=== PATIENT | male | born 1960 | race Caucasian/White ===

== ENCOUNTER → 2020-08-15 13:11 | Outpatient (REF) | payer OTHER, SELFPAY | LOC: ANHLAB 13:11 | PROVIDERS: PCP Family Medicine; Visit Provider Nurse Practitioner | DX: L72.0 Epidermal cyst (principal) | CPT/HCPCS: 88304 ==

== ENCOUNTER 2023-07-05 22:38 | Inpatient (IN) | payer MEDICARE, SELFPAY ==
--- NOTE | ~2023-07-05 | XR_ITS ---
EXAMINATION: XR chest PICC line DATE: 07/10/2023 12:14 INDICATION: Central line placement. TECHNIQUE: A single frontal view of the chest was obtained on 2 radiographs. COMPARISON: Chest single view 07/05/2023, chest CT 07/10/2023 FINDINGS: There is a nodule superior segment left lower lobe. There are airspace opacities at left gaetano ng base. No pleural effusion or pneumothorax. The heart size is normal. There is a left chest pacer w ith leads in right atrium, right ventricle, and coronary sinus. A right upper extremity peripherally inserted central venous catheter (PICC) is seen with tip in the superior vena cava. IMPRESSION: 1. PICC tip in the superior vena cava. 2. Nodule in superior segment left lower lobe, consistent with primary bronchogenic carcinoma. 3. Airspace opacities at left lung base, likely atelectasis. Reviewed, dictated and finalized at location A. IMPRESSION: 1. PICC tip in the superior vena cava. 2. Nodule in superior segment left lower lobe, consistent with primary bronchog enic carcinoma. 3. Airspace opacities at left lung base, likely atelectasis.
--- NOTE | ~2023-07-05 | CT_ITS ---
EXAMINATION: CT abdomen pelvis w con DATE: 07/06/2023 01:11 INDICATION: Sepsis. Nausea and vomiting. TECHNIQUE: Computed tomography (CT) of the abdomen and pelvis was performed with 100 mL Omnipaque 350 intravenous contrast. Automated exposure control and iterative reconstruction technique were employe d. The dose-length product was 539.96 mGy-cm. COMPARISON: CT abdomen and pelvis 06/24/2008 FINDINGS: The visualized portions of the lung bases demonstrate smooth septal thickening, consistent with mild pulmonary edema. There is mild dependent atelectasis bilaterally, left worse than right. No pleural effusion. Cardiomegaly is noted. There is a small pericardial effusion. There is a left ches t wall pacer with leads in the right atrium and right ventricle. There is a pacer wire in coronary si nus. There are coronary artery calcifications. There is an 8 mm cyst in the liver. There are gallston es in the gallbladder, which is normal in size. The spleen, pancreas, and adrenal glands are normal. There are cysts in the kidneys measuring up to 1.9 cm on the right. There is calcified atherosclerosi s of the aorta and many of the other arteries. There is a Benedict catheter in expected position. There is a right inguinal hernia containing fat. The appendix is normal. There are no dilated loops of sophie l. There is wall thickening of the colon, worst in the sigmoid colon, consistent with colitis. There is mild periportal lymphadenopathy. There is no free intraperitoneal fluid. There is moderate lumbar spondylosis. IMPRESSION: 1. Mild pulmonary edema. 2. Small pericardial effusion. 3. Colitis. 4. Mild periportal lymphadenopathy, likely reactive. Reviewed, dictated and finalized at location E.
--- NOTE | ~2023-07-05 | XR_ITS ---
EXAMINATION: XR chest 1V portable DATE: 07/05/2023 23:32 INDICATION: Altered mental status and vomiting TECHNIQUE: frontal view of the chest was obtained. COMPARISON: Chest radiograph dated 11/05/2011 FINDINGS: The lungs remain clear with no focal airspace opacities, pulmonary edema, pleural effusion or pneumot horax. The cardiomediastinal silhouette is normal. Three lead pacemaker/AICD seen with leads projecti ng over the expected locations of the right atrial appendage, apex of the right ventricle and overlyi ng the left ventricle likely having traversed the coronary sinus. IMPRESSION: 1. No acute cardiopulmonary disease. Reviewed, dictated and finalized at location A.
--- NOTE | ~2023-07-05 | CT_ITS ---
EXAMINATION: CT brain wo con DATE: 07/10/2023 08:09 INDICATION: Esophageal cancer. TECHNIQUE: Computed tomography (CT) of the head was performed without intravenous contrast. The mA wa s adjusted according to patient size. Iterative reconstruction technique was employed. The dose-lengt h product was 605.33 mGy-cm. COMPARISON: Head CT 07/05/2023 FINDINGS: There are old infarcts in the right frontal lobe deep white matter. There are old infarcts in the right parietal and occipital lobes. There is no intracranial hemorrhage, acute infarction, or abnormal intracranial mass lesion. The ventricles are normal in size. There is mild mucosal thickenin g in the paranasal sinuses. The orbits are normal. The mastoid air cells are normal. IMPRESSION: 1. Old infarcts involving the right frontal, parietal, and occipital lobes. Reviewed, dictated and finalized at location A.
--- NOTE | ~2023-07-05 | CT_ITS ---
EXAMINATION: CT chest abdomen pelvis w con DATE: 07/10/2023 08:09 INDICATION: Esophageal cancer. TECHNIQUE: Computed tomography (CT) of the chest, abdomen, and pelvis was performed with 100 mL Omnip aque 350 intravenous contrast. Automated exposure control and iterative reconstruction technique were employed. The dose-length product was 763.08 mGy-cm. COMPARISON: CT abdomen and pelvis 07/06/2023 FINDINGS: CHEST CT: There is mild emphysema. There are airspace opacities in left lower lobe with volume loss, likely ate lectasis. There is mucous plugging in left lower lobe. There is a 2.4 cm cavitary nodule in superior segment left lower lobe. There is left hilar and mediastinal lymphadenopathy. There is left ventricul ar enlargement of the heart. There is a small pericardial effusion. There are coronary artery calcifi cations. There is a left chest pacer with leads in right atrium, right ventricle, and coronary sinus. There is mild thoracic spondylosis. There is an old fracture of T1 spinous process. ABDOMEN/PELVIS CT: There is a 7 mm cyst in the liver. There are gallstones in the gallbladder, which is normal in size. There is an 8 mm hypodense mass in the spleen. The pancreas and adrenal glands are normal. There are cysts in the kidneys measuring up to 1. Centimeters on the right. There is calcified atherosclerosis of the aorta and many of the other arteries. There is a right inguinal hernia containing fat. There a re no pathologically enlarged lymph nodes. There is mild periportal lymphadenopathy. There is a benig n bone island in left ilium. There is moderate lumbar spondylosis. IMPRESSION: 1. 2.4 cm cavitary nodule in superior segment left lower lobe, consistent with primary bronchogenic c arcinoma. 2. Left hilar and mediastinal lymphadenopathy, consistent metastatic disease. 3. Small pericardial effusion. 4. 8 mm splenic mass, which may be a benign finding or less likely metastatic disease. 5. Mild periportal lymphadenopathy, which may be reactive lymphadenopathy or less likely metastatic d isease. Reviewed, dictated and finalized at location A. IMPRESSION: 1. 2.4 cm cavitary nodule in superior segment left lower lobe, consistent with primary bronchogenic carcinoma. 2. Left hilar and mediastinal lymphadenopathy, consistent metastatic disease. 3. Small pericardial effusion. 4. 8 mm splenic mass, which may be a benign finding or less likely metastatic d isease. 5. Mild periportal lymphadenopathy, which may be reactive lymphadenopathy or le ss likely metastatic disease.
--- NOTE | ~2023-07-05 | XR_ITS ---
MODIFIED ESOPHAGRAM HISTORY: Dysphagia. TECHNIQUE: Modified barium esophagram was performed on 07/07/2023. I administered fluoroscopy and perfo rmed the exam with speech pathologist. Patient was seated for lateral fluoroscopic imaging for inges tion of thin liquids, pudding, solids and quantified amounts, followed by thin liquids in uncontrolle d amounts. This was recorded on tape. A single fluoroscopic spot image was also recorded. The DAP for this procedure was 0.818 Gycm2. The amount of fluoroscopy time used during this procedure was 1.2 mi nutes. FINDINGS: Oral stage: Adequate function. Pharyngeal stage: Reduced tongue base retraction and pharyngeal squeeze. No laryngeal penetration or aspiration. Cervical/esophageal stage: Adequate function. IMPRESSION: Mild pharyngeal dysphagia without laryngeal penetration or aspiration. Please correlate with speech pathologist findings and specific feeding recommendations. Reviewed, dictated and finalized at location A. IMPRESSION: Mild pharyngeal dysphagia without laryngeal penetration or aspirati on. Please correlate with speech pathologist findings and specific feeding rec ommendations.
--- NOTE | ~2023-07-05 | CT_ITS ---
EXAMINATION: CT brain wo con DATE: 07/05/2023 23:30 INDICATION: Altered mental status TECHNIQUE: Computed tomography (CT) of the head was performed without intravenous contrast. Sagittal and coronal reconstructions were performed. The mA was adjusted according to patient size. Iterative reconstruction technique was employed. The dose-length product was 832.33 mGy-cm. COMPARISON: None FINDINGS: 2 small regions of cortical encephalomalacia in the right parietal and right occipital lobes 3 additi onal consistent with chronic infarcts. 3 additional small old lacunar infarcts, one in the right deo etal centrum semiovale and 2 in the posterior right frontal zimmerman radiata. No acute intracranial hem orrhage, acute infarction or abnormal extra axial fluid collection. There is mild scattered white mat ter hypoattenuation consistent with chronic small vessel ischemic disease. Symmetric prominence of t he sulci consistent with mild age-appropriate diffuse cerebral volume loss. Ventricles are normal an d symmetric. No mass/mass effect. The orbits, paranasal sinuses and mastoid air cells are normal. IMPRESSION: 1. Old infarcts in the right frontal, parietal and occipital lobes. No acute intracranial process. Reviewed, dictated and finalized at location A. IMPRESSION: 1. Old infarcts in the right frontal, parietal and occipital lobes. No acute in tracranial process.
--- NOTE | ~2023-07-05 | XR_ITS ---
EXAMINATION: XR barium swallow DATE: 07/07/2023 11:42 INDICATION: Dysphagia TECHNIQUE: Patient declined to stand or to swallow the gas crystals. Patient agreed to only a few swa llows of thick barium and the standard sequences and imaging was terminated to obtain the maximal rekha ging information of the esophagus in the limited examination. Fluoroscopic spot radiographs of the es ophagus were obtained. Fluoroscopy exposure time was 0.7 minutes. A total of 641 images were recorde d. COMPARISON: None. FINDINGS: On the initial imaging small amount of residual contrast from the modified swallow study wh ich was performed approximately 20 minutes prior was seen pooling in the proximal esophagus. Subseque nt swallow demonstrated an approximately 4 cm fixed stricture at level of the aortic arch which have which measures approximately 4 mm in minimal diameter. The stricture has relatively smooth lobular co ntours appears to arise primarily from apparent asymmetric wall thickening affecting primarily the le ft anterior wall. The remainder of the esophagus is normal with normal motility. No evident hiatal he rnia. Instantly noted is a 3 lead pacemaker/AICD with leads projecting over the expected locations of the right atrial appendage, apex of the right ventricle and overlying the left ventricle likely havi ng traversed the coronary sinus. IMPRESSION: 1. 4 cm stricture at the proximal to mid esophagus with minimal diameter 4 mm which is located at the level of the aortic arch. This appears most likely to result from asymmetric wall thickening which i s concerning for esophageal cancer. Differential would include extrinsic compression although there i s no evident mediastinal widening at this location to suggest this. Consider further evaluation with both endoscopy and contrast enhanced CT of at least the chest. Given the suspicion for malignancy cou ld also consider including the abdomen and pelvis to assess for metastatic disease. Reviewed, dictated and finalized at location A. IMPRESSION: 1. 4 cm stricture at the proximal to mid esophagus with minimal diameter 4 mm w hich is located at the level of the aortic arch. This appears most likely to re sult from asymmetric wall thickening which is concerning for esophageal cancer. Differential would include extrinsic compression although there is no evident mediastinal widening at this location to suggest this. Consider further evaluat ion with both endoscopy and contrast enhanced CT of at least the chest. Given t he suspicion for malignancy could also consider including the abdomen and pelvi s to assess for metastatic disease.
[2023-07-05 22:37] VITALS: BP 174/77; PULSE 100; RESP 23; O2SAT 88
--- NOTE | 2023-07-05 22:48 | ECG_ITS ---
Measurements Intervals [place] Rate: 90 P: 56 SD: 136 QRS: 17 QRSD: 148 T: 81 QT: 404 QTc: 497 Interpretive Statements NORMAL SINUS RHYTHM WITH POSSIBLE ELECTRONIC VENTRICULAR PACEMAKER OR LBBB ABNORMAL RHYTHM ECG NO PREVIOUS ECG AVAILABLE FOR COMPARISON Electronically Signed On 07-06-2023 9:23:12 CDT by Melania Pascual M.D.
--- NOTE | 2023-07-05 22:48 | PC.NURSE ---
Per the last known well was 1930
[2023-07-05 22:49] VITALS: PULSE 110
[2023-07-05 22:53] VITALS: O2SAT 96
[2023-07-05 23:03] VITALS: TEMP 35.9
[2023-07-05 23:24] LABS: Basophils Absolute Auto 0.1 K/mm3 (0.0-0.1); Basophils Percent Auto 0.5 % (0.2-1.2); Eosinophils Absolute Auto 0.1 K/mm3 (0-0.3); Eosinophils Percent Auto 0.8 % (0-4.4); Hematocrit 43.7 % (42.0-52.0); Hemoglobin 13.6 g/dL (14.0-18.0); Immature Granulocyte Absolute 0.13 K/mm3 (0.00-0.031); Immature Granulocyte Percent A 0.8 % (0-0.5); Lymphocytes Percent Auto 12.5 % (18.3-44.2); Mean Corpuscular HGB Conc 31.1 g/dl (32-36); Mean Corpuscular Hemoglobin 26.4 pg (26-34); Mean Corpuscular Volume 84.9 fl (80-100); Mean Platelet Volume 8.9 fl (7.4-10.4); Monocytes Absolute Auto 0.6 K/mm3 (0.1-0.6); Monocytes Percent Auto 3.8 % (2.6-8.5); Neutrophils Absolute Auto 13.7 K/mm3 (1.3-6.7); Neutrophils Percent Auto 81.6 % (45.5-73.1); Platelet Count Result 390 k/mm3 (150-375); Red Blood Count 5.15 M/mm3 (4.6-6.20); Red Cell Distribution Width 15.8 % (11.5-14.5); White Blood Count 16.8 K/mm3 (4.5-10.0)
[2023-07-05 23:29] LABS: Appearance Urine Clear (Clear); Bacteria Urine None Seen /hpf; Bilirubin Urine Negative (Negative); Blood Urine Negative (Negative); Color Urine Yellow (Yellow); Glucose Urine UA 1+ mg/dL (Negative); Ketones Urine Trace mg/dL (Negative); Leukocyte Esterase Ur Negative LEU/UL (Negative); Nitrate Urine Negative (Negative); Non Pathogenic Casts 0-2; Protein Urine 2+ mg/dL (Negative); RBC Urine 0-2 /hpf (0-2); Specific Grav Ur 1.011 (1.001-1.035); Squamous Epithelial Cell Urine None seen /hpf (Few); Urobilinogen Urine 0.2 mg/dL (<2.0); WBC Urine 0-5 /hpf
[2023-07-05 23:36] LABS: Acetaminophen < 10 ug/mL (10-30); Ethanol < 10 mg/dL (<10); Salicylate < 1.0 mg/dL (2-20)
[2023-07-05 23:37] LABS: Alanine Aminotransferase 17 U/L (6-50); Albumin Level 4.5 g/dL (3.5-5.1); Alkaline Phosphatase 83 U/L (38-126); Anion Gap 9 mmol/L (8-16); Aspartate Amino Transferase 20 U/L (17-59); Bilirubin,Total 0.4 mg/dL (0.2-1.3); Blood Urea Nitrogen 8 mg/dL (9-20); Calcium 8.9 mg/dL (8.4-10.2); Carbon Dioxide 26 mmol/L (22-30); Chloride 102 mmol/L (98-107); Creatine Kinase 30 U/L (55-170); Estimated Glomerular Filt Rate > 60; Glucose 283 mg/dL (65-110); Potassium 3.5 mmol/L (3.4-5.0); Sodium 137 mmol/L (137-145)
--- NOTE | 2023-07-05 23:43 | ED.WEAKNESS ---
HPI - Weakness General Chief complaint: Weakness Stated complaint: WEAKNESS, LETHARGY Time Seen by Provider: 07/05/23 22:48 History of Present Illness HPI Narrative: 63-year-old male with history of heart disease with pacemaker, diabetes, presents here after being found by family altered and on the ground, they state that he had been lasting watching TV on the couch at 7 PM, and then found him unresponsive on the floor. Per family at bedside, he was prescribed a lot of different medications but he is only agreeable to taking 3 of them, and he used to be more active and go golfing but over the last year has become more sedentary, and is only at home on the couch watching TV all day every day, and has lost about 30 pounds over the past year. Related Data Home Medications Medication Instructions Recorded Confirmed metoprolol succinate 50 mg 100 mg PO DAILY 07/06/23 07/06/23 tablet,extended release 24 hr Allergies Allergy/AdvReac Type Severity Reaction Status Date / Time Penicillins Allergy Unknown Rash Verified 02/11/23 07:37 Review of Systems Review of Systems: CONST: No fever. HEENT: No sore throat C/V: No chest pain RESP: No cough GI: No abdominal pain : No dysuria. M/S: No joint pain. SKIN: No rash. NEURO: [No headache or focal numbness or weakness] [facility] Past Medical History Medical History BMI 22.0-22.9, adult BMI 24.0-24.9, adult BMI 25.0-25.9,adult Diabetes type 2, controlled Furuncle of back, except buttock Heart failure Surgical History Surgical History History of permanent cardiac pacemaker placement Family History Family History Father Acute myocardial infarction Mother No problems noted. Sibling Diabetes mellitus Social History Social History Smoking packs per day: 2 Smoking cigarettes per day: 40.0 Years smoked: 40 Smoking pack-years: 80.00 Smoking status: Current every day smoker Tobacco type: cigarettes Second hand tobacco smoke exposure: Yes Alcohol intake: former Substance use: current Substance use type: marijuana Lack of Transportation: No Lack of Food: Never True Current Housing: I Have Housing Concerned About Future Housing: No Difficulty Paying Gas/Electric Bills: No Difficulty Paying for Meds: No Currently Unemployed: No Education: Decline to Answer Difficulty w/ Childcare or Family Care: No Living arrangements: with family Occupation/Education: retired 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 Gender identity (if verbalized by the patient): Male Spiritual care concerns: No Exam Narrative: EXAMINATION OF ORGAN SYSTEMS/BODY AREAS: Constitutional: Vital signs per nursing GENERAL: Eyes closed but will open them to verbal and physical stimuli HEAD: Normal with no signs of head trauma. EYES: EOMI, PERRL, conjunctiva normal ENT: Hearing grossly intact LUNGS: Nonlabored breathing. HEART: [Regular rate and rhythm] ABD: [Soft], [nontender to palpation] EXT: Normal range of motion SKIN: [No rashes or lesions.] NEURO: [Sleepy, oriented x 1. No gross focal sensory or strength deficits.] PSYCH: Annoyed affect Course Vital Signs Vital signs: Vital Signs Pulse Rate 100 07/05/23 22:37 Respiratory Rate 23 H 07/05/23 22:37 Blood Pressure 174/77 H 07/05/23 22:37 Pulse Oximetry 88 L 07/05/23 22:37 Oxygen Delivery Room Air 07/05/23 22:37 Temperature 97.5 F L 07/06/23 04:05 Pulse Rate 62 07/06/23 04:05 Respiratory Rate 16 07/06/23 04:05 Blood Pressure 154/83 H 07/06/23 04:05 Pulse Oximetry 92 07/06/23 04:05 Oxygen Delivery Nasal Cannula 07/05/23 22:53 Oxygen Flow Rate 4 07/05/23 22:53 MDM - Weakness MDM Narrative Medical dec
[2023-07-05 23:47] LABS: Amphetamine Screen Urine Negative (Negative); Barbiturate Screen Urine Negative (Negative); Benzodiazepines Screen Urine Negative (Negative); Cannabinoid Screen Urine Positive (Negative); Cocaine Screen Urine Negative (Negative); Methadone Screen Urine Negative (Negative); Opiate Screen Urine Negative (Negative); Phencyclidine Screen Urine Negative (Negative)
[2023-07-05 23:56] LABS: Troponin I < 0.012 ng/mL (0.000-0.034)
[2023-07-05 23:58] LABS: Add Urine Microscopic? YES
[2023-07-06] VITALS (15 sets, daily range): BP systolic 124–168; BP diastolic 52–84; PULSE 57–88; RESP 10–18; TEMP 35.4–36.7; O2SAT 92–99; BMI 20.5
[2023-07-06 00:01] LABS: Influenza A QL RT-PCR Negative (Negative); Influenza B QL RT-PCR Negative (Negative); RSV RNA, RT-PCR Negative (Negative); SARS-CoV-2 RNA PCR Negative (Negative)
--- NOTE | 2023-07-06 00:11 | PC.NURSE ---
Patient was stating that he felt like he had to keep urinating, but nothing was coming out. After bladder scanning the patient and obtained a >200mL reading, EDP Dr. Dunbar ordered a urinary catheter.
[2023-07-06] MEDS: CEFEPIME 1 GM/NS 50 ML 1 GM/50 ML BAG IVPB (00:28)
[2023-07-06] MEDS: ENTER PT HEIGHT XX (00:28)
--- NOTE | 2023-07-06 00:33 | PC.NURSE ---
Patient was being assessed by hospitalist when he sat up and vomited on his blankets. Hospitalist ordered 4mg IVP Zofran
[2023-07-06] MEDS: ONDANSETRON INJ 4 MG/2 ML VIAL IV PUSH ×2 (00:36→04:24)
--- NOTE | 2023-07-06 00:53 | PM.IMHP ---
H&P: HPI History of Present Illness Date/Time: 07/06/23 00:53 Chief Complaint: AMS, Vomiting, Poor oral intake Narrative: Patient has history of diabetes and said to not be doing well for some years now and he is now progressively declining. his found him down at night and he was unresponsive and he was brought to the emergency department for evaluation. His reported that he has not been eating well for weeks now and vomits any little thing that he eats, and he has alos been coughing for very light, he was hypothermic on arrival, white count found to be elevated with lactic acidosis of 3, his blood pressure remains normal. CT scan of the head over-read by ED phsycian per her report showed old ischemia. negatiev chest XR. Patient was given vancomycin and cefepime and also IVF and placed on warm blanket Review of Systems Review of Systems: All systems reviewed & are unremarkable except as noted in HPI and below Constitutional: Constitutional: Reports fatigue, Reports lethargy and Reports weakness PMFSH Past Medical History Medical History BMI 22.0-22.9, adult BMI 24.0-24.9, adult BMI 25.0-25.9,adult Diabetes type 2, controlled Furuncle of back, except buttock Heart failure Surgical History Surgical History History of permanent cardiac pacemaker placement Family History Family History Father Acute myocardial infarction Mother No problems noted. Sibling Diabetes mellitus Social History Social History Smoking packs per day: 2 Smoking cigarettes per day: 40.0 Years smoked: 40 Smoking pack-years: 80.00 Smoking status: Current every day smoker Tobacco type: cigarettes Second hand tobacco smoke exposure: Yes Alcohol intake: former Substance use: current Substance use type: marijuana Lack of Transportation: No Lack of Food: Never True Current Housing: I Have Housing Concerned About Future Housing: No Difficulty Paying Gas/Electric Bills: No Difficulty Paying for Meds: No Currently Unemployed: No Education: Decline to Answer Difficulty w/ Childcare or Family Care: No Living arrangements: with family Occupation/Education: retired 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 Gender identity (if verbalized by the patient): Male Spiritual care concerns: No Meds Home Medications and Allergies Home Medications Medication Instructions Recorded Confirmed Type glimepiride 4 mg tablet 4 mg PO QAM #90 tabs 11/12/22 07/06/23 Rx sitagliptin phosphate 50 1 tablet PO BID #60 tabs 06/20/23 07/06/23 Rx mg-metformin 1,000 mg tablet (Opal) metoprolol succinate 50 mg 100 mg PO DAILY 07/06/23 07/06/23 History tablet,extended release 24 hr Allergies Allergy/AdvReac Type Severity Reaction Status Date / Time Penicillins Allergy Unknown Rash Verified 02/11/23 07:37 Vital Signs Vital Signs - 24 hr 07/05/23 22:37 07/05/23 22:49 07/05/23 22:53 Temperature Pulse Rate 100 110 H Respiratory Rate 23 H Blood Pressure 174/77 H Pulse Oximetry 88 L 96 Oxygen Delivery Room Air Nasal Cannula Oxygen Flow Rate 4 07/05/23 23:03 07/06/23 00:48 Temperature 96.6 F L 95.8 F L Pulse Rate 65 Respiratory Rate 17 Blood Pressure 139/70 Pulse Oximetry 99 Oxygen Delivery Oxygen Flow Rate Exam Const: General: no acute distress Other: lethargic and dehydrated, frail HENMT: Face/Nose/Sinus: Normal nares present Mouth: Yes dry mucous membranes Eyes: General: appearance normal, both eyes and all related structures EOM: EOMs intact bilaterally Neck: Neck: supple Chest: Other: no chest wall tenderness Resp: Effort & Inspection: normal respiratory effort Other: dimished BS on bi
[2023-07-06 01:17] LABS: Magnesium 1.6 mg/dL (1.6-2.3); Phosphorus 3.6 mg/dL (2.5-4.5)
[2023-07-06 01:26] LABS: Alveolar/Arterial O2 Gradient 93.8 mmHg; Base Excess ABG 2.8 mEq/l (+/-2.0); Device NASAL CANNULA; Fractional Inspired Oxygen 36 %; HCO3 ABG 28.7 mEq/l (22.0-26.0); Methemoglobin ABG 0.3 %THb (0-1.5); Modified Allen's Test Pass; Oxygen Saturation ABG 97.8 % (95.0-100.0); Oxyhemoglobin 93.2 % THb (90.0-100.0); PCO2 ABG 48.9 mmHg (35.0-45.0); PO2 ABG 106.2 mmHg (80.0-100.0); PO2 FiO2 Ratio Arterial Blood 2.95 %; Reduced Hemoglobin 2.5 %THb (0-5.0); Site Drawn RIGHT RADIAL; Total Hemoglobin 13.6 g/dL (12.0-18.0); pH ABG 7.386 (7.350-7.450)
[2023-07-06] MEDS: SODIUM CHLORIDE 0.9% IV 1,000 ML 125 ML IV CONT ×2 (01:31→12:28)
[2023-07-06] MEDS: metroNIDAZOLE 500 MG/ISO 100ML 500 MG/100 ML BAG 100 MG IVPB ×3 (01:33→20:59)
[2023-07-06 01:54] LABS: Lactic Acid Reflex 1.7 mmol/L (0.7-2.0)
[2023-07-06 02:10] LABS: INR 1.1; Prothrombin Time 14.4 Seconds (11.1-14.7)
[2023-07-06 02:22] LABS: Reflex Lactic Acid Yes or No Add Lactic
[2023-07-06 02:40] LABS: D Dimer 0.77 ug/mL (<0.48)
[2023-07-06 04:38] LABS: Anion Gap 8 mmol/L (8-16); Blood Urea Nitrogen 9 mg/dL (9-20); Calcium 8.4 mg/dL (8.4-10.2); Carbon Dioxide 24 mmol/L (22-30); Chloride 99 mmol/L (98-107); Estimated CRCL calculation 111 ml/min; Estimated Glomerular Filt Rate > 60; Glucose 396 mg/dL (65-110); Potassium 3.7 mmol/L (3.4-5.0); Sodium 131 mmol/L (137-145)
[2023-07-06 04:40] LABS: Basophils Percent Auto 0.2 % (0.2-1.2); Eosinophils Percent Auto 0.1 % (0-4.4); Hematocrit 40.4 % (42.0-52.0); Hemoglobin 12.6 g/dL (14.0-18.0); Immature Granulocyte Absolute 0.05 K/mm3 (0.00-0.031); Immature Granulocyte Percent A 0.4 % (0-0.5); Lymphocytes Percent Auto 5.7 % (18.3-44.2); Mean Corpuscular HGB Conc 31.2 g/dl (32-36); Mean Corpuscular Hemoglobin 26.1 pg (26-34); Mean Corpuscular Volume 83.8 fl (80-100); Mean Platelet Volume 9.5 fl (7.4-10.4); Monocytes Absolute Auto 0.3 K/mm3 (0.1-0.6); Monocytes Percent Auto 2.3 % (2.6-8.5); Neutrophils Absolute Auto 11.3 K/mm3 (1.3-6.7); Neutrophils Percent Auto 91.3 % (45.5-73.1); Platelet Count Result 354 k/mm3 (150-375); Red Blood Count 4.82 M/mm3 (4.6-6.20); Red Cell Distribution Width 15.4 % (11.5-14.5); White Blood Count 12.3 K/mm3 (4.5-10.0)
[2023-07-06] MEDS: METOCLOPRAMIDE HCL INJ 10 MG/2 ML VIAL IV PUSH (05:53)
[2023-07-06] MEDS: diphenhydrAMINE HCl INJ 50 MG/ML VIAL 12.5 MG IV PUSH (05:53)
--- NOTE | 2023-07-06 10:31 | PM.IMPN ---
Progress Note: A&P Assessment and Plan (1) Sepsis: Code(s): A41.9 - Sepsis, unspecified organism Status: Acute Assessment and Plan: Based on finding of leukocystosis, hypothermia and lactic acidosis. UA is not consistent with UTI. CXR is clear. CT A/P showing mild pulmonary edema, small pericardial effusion and colitis. He was started on Vancomycin and meropenem. Flagyl added. Hypothermia resolved. WBC better. BCx pending. Continue to monitor. NPO until he is more awake and alert (2) Colitis: Code(s): K52.9 - Noninfective gastroenteritis and colitis, unspecified Status: Acute Assessment and Plan: CT A/P showing colitis but no diarrhea or abdominal pain. He was having n/v with evidence of sepsis so this could be the source. Continue antibiotic. Continue gentle hydration considering finding of mild pulmonary edema. Antiemetic as needed. Stool cx. No CDiff since not having diarrhea. (3) Lactic acidosis: Code(s): E87.20 - Acidosis, unspecified Status: Acute Assessment and Plan: Improving, repeated 2 hour after rehydration and currently within normal. 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 Continue AccuCheks covering with sliding scale. Hypoglycemia protocol available as needed. Change to Q6hr sliding scale. Stop oral medications. Check A1c. (5) Altered mental status: Code(s): R41.82 - Altered mental status, unspecified Status: Acute Assessment and Plan: Patient alert but mildly confused. Family states this is unusual for this patient. 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 Family states the patient has never had strokes that they are aware of. No acute findings on the CT scan. Patient cannot have MRI due to pacemaker. Patient's symptoms overall may be related to his poorly controlled diabetes resulting in the weakness, weight loss. TSH normal. Will check B12 and cortisol levels. Treatment as above. Further evaluation if he continues to remain confused on further evaluation. (6) Dysphagia: Code(s): R13.10 - Dysphagia, unspecified Status: Acute Assessment and Plan: Patient has had complaints of dysphagia. This could be related to old infarcts. Patient has refused to have a medical evaluation this bite persistent efforts by family for patient to seek medical care. Dysphagia also could be related to weakness related to his poorly controlled diabetes. Speech therapy evaluate and treat. Will also have PT and OT evaluate and treat. (7) Tobacco abuse: Code(s): Z72.0 - Tobacco use Status: Acute Assessment and Plan: Patient will need to be educated about the benefits of smoking cessation. Plan DVT Prophylaxis - Lovenox Code status; DNR Subjective Date/time seen: 07/06/23 10:31 Interval history: 63yo male with DM and CHF here for vomiting and poor oral intake. Patient is alert but confused. He refuses to participate in exam. He provides limited hx mostly denying CT, palpitations, abd pain, diarrhea, recent abx exposure. in room and she states patient was having n/v, weakness and weight loss. Symptoms have diaz going on for months. He is supposed to be on insulin but patient has refused. has noted dysphagia related to eating but no food sticking sensation. Hx is limited from patient. Exam Narrative: AF 97.5 154/83 62 16 92% ra Gen - NARD lying left side down Chest - CTA bilaterally, nml RR CV - RRR S1
[2023-07-06 10:57] LABS: Glucose Point of Care 254 mg/dl (65-105)
[2023-07-06] MEDS: PANTOPRAZOLE SODIUM IV 40 MG VIAL IV PUSH (11:00)
[2023-07-06] MEDS: ENOXAPARIN 40 MG/0.4 ML SYRINGE SUB-Q (11:01)
[2023-07-06] MEDS: NICOTINE (*PBKC) 21 MG PATCH 1 PATCH TRANSDERM (11:06)
[2023-07-06] MEDS: METOPROLOL SUCCINATE EXT REL 100 MG TABCR PO (11:12)
[2023-07-06 12:06] LABS: Glucose Point of Care 236 mg/dl (65-105)
[2023-07-06] MEDS: MEROPENEM 1 GM/NS 100 ML 1 GM/100 ML BAG IVPB ×2 (12:30→20:59)
[2023-07-06] MEDS: INSULIN ASPART (*BKC) 100 UNITS/ML SUB-Q (12:35)
[2023-07-06] MEDS: VANCOMYCIN 1,000 MG/NS 250 ML 1,000 MG/250 ML BAG 250 MG IVPB (13:40)
[2023-07-06 17:14] LABS: Glucose Point of Care 141 mg/dl (65-105)
[2023-07-07] VITALS (10 sets, daily range): BP systolic 135–149; BP diastolic 58–63; PULSE 56–67; RESP 18–20; TEMP 36.9–37.2; O2SAT 94–95
[2023-07-07] MEDS: VANCOMYCIN 1,000 MG/NS 250 ML 1,000 MG/250 ML BAG 250 MG IVPB (00:20)
[2023-07-07 00:21] LABS: Glucose Point of Care 173 mg/dl (65-105)
[2023-07-07] MEDS: SODIUM CHLORIDE 0.9% IV 1,000 ML 100 ML IV CONT ×2 (00:22→14:50)
[2023-07-07 05:39] LABS: Basophils Percent Auto 0.3 % (0.2-1.2); Eosinophils Percent Auto 0.1 % (0-4.4); Hematocrit 38.2 % (42.0-52.0); Immature Granulocyte Absolute 0.06 K/mm3 (0.00-0.031); Immature Granulocyte Percent A 0.4 % (0-0.5); Lymphocytes Absolute Auto 2.78 K/mm3 (0.9-3.2); Lymphocytes Percent Auto 19.9 % (18.3-44.2); Mean Corpuscular HGB Conc 31.4 g/dl (32-36); Mean Corpuscular Hemoglobin 26.4 pg (26-34); Mean Platelet Volume 9.4 fl (7.4-10.4); Monocytes Percent Auto 7.1 % (2.6-8.5); Neutrophils Absolute Auto 10.1 K/mm3 (1.3-6.7); Neutrophils Percent Auto 72.2 % (45.5-73.1); Platelet Count Result 279 k/mm3 (150-375); Red Blood Count 4.55 M/mm3 (4.6-6.20); Red Cell Distribution Width 15.7 % (11.5-14.5)
[2023-07-07] MEDS: MEROPENEM 1 GM/NS 100 ML 1 GM/100 ML BAG IVPB ×3 (05:52→20:57)
[2023-07-07] MEDS: metroNIDAZOLE 500 MG/ISO 100ML 500 MG/100 ML BAG 100 MG IVPB ×3 (05:53→20:57)
[2023-07-07 06:07] LABS: Glucose Point of Care 145 mg/dl (65-105)
[2023-07-07 07:41] LABS: Hemoglobin A1C 7.1 % (<5.7)
[2023-07-07 07:43] LABS: Albumin Level 3.4 g/dL (3.5-5.1); Anion Gap 6 mmol/L (8-16); Blood Urea Nitrogen 8 mg/dL (9-20); Calcium 8.3 mg/dL (8.4-10.2); Carbon Dioxide 26 mmol/L (22-30); Chloride 108 mmol/L (98-107); Estimated CRCL calculation 111 ml/min; Estimated Glomerular Filt Rate > 60; Glucose 139 mg/dL (65-110); Magnesium 1.6 mg/dL (1.6-2.3); Phosphorus 3.3 mg/dL (2.5-4.5); Potassium 3.4 mmol/L (3.4-5.0); Sodium 140 mmol/L (137-145)
[2023-07-07] MEDS: PANTOPRAZOLE SODIUM IV 40 MG VIAL IV PUSH (08:38)
[2023-07-07] MEDS: METOPROLOL SUCCINATE EXT REL 100 MG TABCR PO (08:38)
[2023-07-07] MEDS: ENOXAPARIN 40 MG/0.4 ML SYRINGE SUB-Q (08:38)
[2023-07-07] MEDS: NICOTINE (*PBKC) 21 MG PATCH 1 PATCH TRANSDERM (08:38)
[2023-07-07 08:49] LABS: Folic Acid 4.6 ng/mL (2.76->20)
--- NOTE | 2023-07-07 12:04 | PCSTNOTE ---
Modified barium swallow study completed. Patient was given trials of thin liquid by spoon, cup, and straw and pureed consistency by spoon. Refused other consistencies. No penetration or aspiration observed, however, patient stated that it was hard for him to swallow. Reduced tongue base retraction and reduced pharyngeal squeeze were noted with all consistencies and amounts trialed. Recommendation: pureed diet consistency with thin liquids. No further speech therapy is recommended. Thank you for the referral of this patient.
--- NOTE | 2023-07-07 12:21 | WPDGICN ---
Assessment and Plan Assessment and plan (1) Altered mental status: Code(s): R41.82 - Altered mental status, unspecified Status: Acute Assessment and Plan: he was found incoherent on the floor of his family room last night. His mental status has improved. No acute changes were reported on his CT of the head. (2) Dysphagia: Code(s): R13.10 - Dysphagia, unspecified Status: Acute Assessment and Plan: He has been unable to eat for the past month or so and has lost a significant amount of weight. Modified barium swallow has just been completed. Results are not yet available. (3) Colitis: Code(s): K52.9 - Noninfective gastroenteritis and colitis, unspecified Status: Acute Assessment and Plan: He has not reported any changes in bowel habits but CT scan does show edema in the sigmoid colon suggestive of ischemic or other colitis. If stools can be obtained will check for infectious etiology. (4) Lactic acidosis: Code(s): E87.20 - Acidosis, unspecified Status: Acute Assessment and Plan: Initially elevated, lactic acid level has returned to normal, Currently 1.7. (5) Tobacco abuse: Code(s): Z72.0 - Tobacco use Status: Acute Assessment and Plan: He smokes 2 packs per day. (6) Weight loss, unintentional: Code(s): R63.4 - Abnormal weight loss Status: Acute Assessment and Plan: Weight loss apparently is due to inability to eat. I suspect esophageal problem unless MBS revealed that he has a neurologic deficit. Plan depending on results of modified barium swallow, may perform EGD tomorrow morning. Possible colitis which needs to be investigated. Will obtain stool studies if available. GI Consult Note Consult date/time: 07/07/23 12:21 HPI: Raoul Bacon Jr. is a 63 year old male Who was found on the floor the family room by his late last evening. She had gone to bed, and their son found him on the floor the family room. He was unable to communicate at that time. He was brought to the emergency room with altered mental status. Her that actually has improved but he has also been losing weight, about 30 lb over the past few months. The family has noticed that he is unable to eat. He will eat a little and starts coughing While eating or may vomit after he has eaten a bit. He has had no diarrhea but CT scan does show it may be colitis in the sigmoid colon. Initial lactic acid was elevated but now normal. The patient states that he can usually get things down he works on it but things like even water seems to catch on the right side of his throat. Review of Systems Review of Systems: All systems reviewed & are unremarkable except as noted in HPI and below PMFSH Past Medical History Medical History BMI 22.0-22.9, adult BMI 24.0-24.9, adult BMI 25.0-25.9,adult Diabetes type 2, controlled Furuncle of back, except buttock Heart failure Surgical History Surgical History History of permanent cardiac pacemaker placement Family History Family History Father Acute myocardial infarction Mother No problems noted. Sibling Diabetes mellitus Social History Social History Smoking packs per day: 2 Smoking cigarettes per day: 40.0 Years smoked: 40 Smoking pack-years: 80.00 Smoking status: Current every day smoker Tobacco type: cigarettes Second hand tobacco smoke exposure: Yes Alcohol intake: former Substance use: current Substance use type: marijuana Lack of Transportation: No Lack of Food: Never True Current Housing: I Have Housing Concerned About Future Housing: No Difficulty Paying Gas/Electric Bills: No Difficulty P
[2023-07-07 12:51] LABS: Vancomycin Trough 9.3 ug/mL (10.0-20.0)
[2023-07-07 13:17] LABS: Glucose Point of Care 155 mg/dl (65-105)
--- NOTE | 2023-07-07 13:35 | PM.IMPN ---
Progress Note: A&P Assessment and Plan (1) Sepsis: Code(s): A41.9 - Sepsis, unspecified organism Status: Acute Assessment and Plan: Based on finding of leukocystosis, hypothermia and lactic acidosis. UA is not consistent with UTI. CXR is clear. CT A/P showing mild pulmonary edema, small pericardial effusion and colitis. He was started on Vancomycin and meropenem. Flagyl added. Hypothermia resolved. WBC better. BCx pending. Continue to monitor. NPO until he is more awake and alert (2) Colitis: Code(s): K52.9 - Noninfective gastroenteritis and colitis, unspecified Status: Acute Assessment and Plan: ? Significance of colitis Continue antibiotics (3) Lactic acidosis: Code(s): E87.20 - Acidosis, unspecified Status: Acute Assessment and Plan: Improving, repeated 2 hour after rehydration and currently within normal. 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 Diabetes mellitus complication status: with hyperglycemia Qualified Code(s): E11.65 - Type 2 diabetes mellitus with hyperglycemia Code(s): E11.9 - Type 2 diabetes mellitus without complications Status: Acute Assessment and Plan: Monitor (5) Altered mental status: Code(s): R41.82 - Altered mental status, unspecified Status: Acute Assessment and Plan: Improved (6) Dysphagia: Code(s): R13.10 - Dysphagia, unspecified Status: Acute Assessment and Plan: Speech therapy to evaluate Esophagram ordered (7) Tobacco abuse: Code(s): Z72.0 - Tobacco use Status: Acute Assessment and Plan: Patient will need to be educated about the benefits of smoking cessation. Plan DVT Prophylaxis - Lovenox Code status; DNR Subjective Date/time seen: 07/07/23 13:35 Interval history: Complaining of dysphagia Exam Narrative: AF 97.5 154/83 62 16 92% ra Gen - NARD lying left side down Chest - CTA bilaterally, nml RR CV - RRR S1/S2. Tele showing mostly paced rhythm Abd - soft, no apparent tenderness (refuses to lay flat) Ext - No pedal edema Neuro - Alert. Oriented x 2 (did not know year or location) Psych - hard to assess Skin - Warm and dry Objective Data Vital Signs Vital Signs: Vital Signs - 24 hr 07/06/23 14:00 07/06/23 16:00 07/06/23 20:53 Temperature 97.8 F 97.7 F Pulse Rate 63 57 L 66 Respiratory Rate 18 18 Blood Pressure 137/59 L 124/52 L Pulse Oximetry 95 98 Oxygen Delivery 07/06/23 20:00 07/06/23 20:00 07/07/23 00:00 Temperature Pulse Rate 60 58 L Respiratory Rate Blood Pressure Pulse Oximetry Oxygen Delivery Room Air 07/07/23 04:10 07/07/23 05:46 07/07/23 08:38 Temperature 98.5 F Pulse Rate 65 67 65 Respiratory Rate 18 Blood Pressure 146/58 H Pulse Oximetry 95 Oxygen Delivery 07/07/23 10:50 07/07/23 08:00 07/07/23 08:00 Temperature Pulse Rate 56 L Respiratory Rate Blood Pressure Pulse Oximetry Oxygen Delivery Room Air Room Air Intake/Output Intake/Output: Intake & Output 07/04/23 07/05/23 07/06/23 07/07/23 23:59 23:59 23:59 23:59 Intake Total 1700 1450 Output Total 2600 650 Balance -900 800 Meds/Results Medications: Active Medications Generic Name Dose Route Start Last Admin Trade Name Freq PRN Reason Stop Dose Admin Dextrose 12.5 gm 07/06/23 05:04 Dextrose 50% 25 Gm/50 Ml Syringe IV PUSH PRN PRN Hypoglycemia Protocol Enoxaparin Sodium 40 mg 07/06/23 09:00 07/07/23 08:38 Enoxaparin 40 Mg/0.4 Ml Syringe SUB-Q 40 mg DAILY HAZEL Administration Glucagon 1 mg 07/06/23 05:04 Glucagon For Inj 1 Mg Vial IM PRN PRN Hypoglycemia Protocol Glucose 15 gm 07/06/23 05:04 Glucose Oral Gel 15 Gm Of Glucse In 37.5 Gm Tube PO PRN PRN Hypoglycemia
[2023-07-08] VITALS (13 sets, daily range): BP systolic 131–166; BP diastolic 51–71; PULSE 50–89; RESP 16–21; TEMP 36.6–36.9; O2SAT 94–99; BMI 20.5
[2023-07-08 00:28] LABS: Glucose Point of Care 149 mg/dl (65-105)
[2023-07-08] MEDS: SODIUM CHLORIDE 0.9% IV 1,000 ML 100 ML IV CONT ×2 (02:54→20:32)
[2023-07-08 04:48] LABS: Glucose Point of Care 231 mg/dl (65-105)
[2023-07-08 05:34] LABS: Basophils Absolute Auto 0.1 K/mm3 (0.0-0.1); Basophils Percent Auto 0.5 % (0.2-1.2); Eosinophils Absolute Auto 0.1 K/mm3 (0-0.3); Eosinophils Percent Auto 0.6 % (0-4.4); Hematocrit 39.8 % (42.0-52.0); Hemoglobin 12.5 g/dL (14.0-18.0); Immature Granulocyte Absolute 0.05 K/mm3 (0.00-0.031); Immature Granulocyte Percent A 0.5 % (0-0.5); Lymphocytes Absolute Auto 2.11 K/mm3 (0.9-3.2); Lymphocytes Percent Auto 19.4 % (18.3-44.2); Mean Corpuscular HGB Conc 31.4 g/dl (32-36); Mean Corpuscular Hemoglobin 26.3 pg (26-34); Mean Corpuscular Volume 83.6 fl (80-100); Mean Platelet Volume 9.3 fl (7.4-10.4); Monocytes Absolute Auto 0.8 K/mm3 (0.1-0.6); Monocytes Percent Auto 6.9 % (2.6-8.5); Neutrophils Absolute Auto 7.8 K/mm3 (1.3-6.7); Neutrophils Percent Auto 72.1 % (45.5-73.1); Platelet Count Result 258 k/mm3 (150-375); Red Blood Count 4.76 M/mm3 (4.6-6.20); Red Cell Distribution Width 15.3 % (11.5-14.5); White Blood Count 10.9 K/mm3 (4.5-10.0)
[2023-07-08 05:44] LABS: Anion Gap 4 mmol/L (8-16); Blood Urea Nitrogen 6 mg/dL (9-20); Calcium 8.3 mg/dL (8.4-10.2); Carbon Dioxide 26 mmol/L (22-30); Chloride 103 mmol/L (98-107); Estimated CRCL calculation 111 ml/min; Estimated Glomerular Filt Rate > 60; Glucose 214 mg/dL (65-110); Potassium 2.9 mmol/L (3.4-5.0); Sodium 133 mmol/L (137-145)
[2023-07-08] MEDS: metroNIDAZOLE 500 MG/ISO 100ML 500 MG/100 ML BAG 100 MG IVPB ×3 (06:02→20:34)
[2023-07-08] MEDS: MEROPENEM 1 GM/NS 100 ML 1 GM/100 ML BAG IVPB ×2 (06:02→13:02)
[2023-07-08] MEDS: PANTOPRAZOLE SODIUM IV 40 MG VIAL IV PUSH (09:35)
[2023-07-08] MEDS: NICOTINE (*PBKC) 21 MG PATCH 1 PATCH TRANSDERM (09:35)
[2023-07-08] MEDS: ONDANSETRON INJ 4 MG/2 ML VIAL IV PUSH (09:35)
[2023-07-08 10:06] LABS: Glucose Point of Care 267 mg/dl (65-105)
--- NOTE | 2023-07-08 11:12 | PM.IMPN ---
Progress Note: A&P Assessment and Plan (1) Sepsis: Code(s): A41.9 - Sepsis, unspecified organism Status: Acute Assessment and Plan: Resolved, continue antibiotics. (2) Colitis: Code(s): K52.9 - Noninfective gastroenteritis and colitis, unspecified Status: Acute Assessment and Plan: ? Significance of colitis Continue antibiotics (3) Lactic acidosis: Code(s): E87.20 - Acidosis, unspecified Status: Acute Assessment and Plan: Improving, repeated 2 hour after rehydration and currently within normal. Related to above (4) Diabetes type 2, controlled: Qualifiers: Diabetes mellitus senior care insulin use: without senior care use Diabetes mellitus complication status: with hyperglycemia Qualified Code(s): E11.65 - Type 2 diabetes mellitus with hyperglycemia Code(s): E11.9 - Type 2 diabetes mellitus without complications Status: Acute Assessment and Plan: Monitor (5) Altered mental status: Code(s): R41.82 - Altered mental status, unspecified Status: Acute Assessment and Plan: Improved (6) Dysphagia: Code(s): R13.10 - Dysphagia, unspecified Status: Acute Assessment and Plan: Esophagram noted. Will need EGD. (7) Tobacco abuse: Code(s): Z72.0 - Tobacco use Status: Acute Assessment and Plan: Patient will need to be educated about the benefits of smoking cessation. Plan DVT Prophylaxis - Lovenox Code status; DNR Subjective Date/time seen: 07/08/23 11:12 Interval history: No new issues. Exam Narrative: AF 97.5 154/83 62 16 92% ra Gen - NARD lying left side down Chest - CTA bilaterally, nml RR CV - RRR S1/S2. Tele showing mostly paced rhythm Abd - soft, no apparent tenderness (refuses to lay flat) Ext - No pedal edema Neuro - Alert. Oriented x 2 (did not know year or location) Psych - hard to assess Skin - Warm and dry Objective Data Vital Signs Vital Signs: Vital Signs - 24 hr 07/07/23 12:00 07/07/23 14:00 07/07/23 16:00 Temperature 99 F Pulse Rate 56 L 62 57 L Respiratory Rate 18 Blood Pressure 135/58 L Pulse Oximetry 95 Oxygen Delivery 07/07/23 21:03 07/07/23 20:00 07/07/23 20:00 Temperature 99 F Pulse Rate 56 L 57 L Respiratory Rate 20 Blood Pressure 149/63 H Pulse Oximetry 94 Oxygen Delivery Room Air 07/08/23 00:00 07/08/23 04:00 07/08/23 04:40 Temperature 98.5 F Pulse Rate 54 L 50 L 53 L Respiratory Rate 20 Blood Pressure 140/51 L Pulse Oximetry 96 Oxygen Delivery 07/08/23 08:00 07/08/23 08:00 Temperature Pulse Rate 69 Respiratory Rate Blood Pressure Pulse Oximetry Oxygen Delivery Room Air Intake/Output Intake/Output: Intake & Output 07/05/23 07/06/23 07/07/23 07/08/23 23:59 23:59 23:59 23:59 Intake Total 1700 3550 1900 Output Total 2600 1650 3000 Balance -900 1900 -1100 Meds/Results Medications: Active Medications Generic Name Dose Route Start Last Admin Trade Name Freq PRN Reason Stop Dose Admin Dextrose 12.5 gm 07/06/23 05:04 Dextrose 50% 25 Gm/50 Ml Syringe IV PUSH PRN PRN Hypoglycemia Protocol Enoxaparin Sodium 40 mg 07/06/23 09:00 07/08/23 08:05 Enoxaparin 40 Mg/0.4 Ml Syringe SUB-Q Not Given DAILY HAZEL Glucagon 1 mg 07/06/23 05:04 Glucagon For Inj 1 Mg Vial IM PRN PRN Hypoglycemia Protocol Glucose 15 gm 07/06/23 05:04 Glucose Oral Gel 15 Gm Of Glucse In 37.5 Gm Tube PO PRN PRN Hypoglycemia Protocol Sodium Chloride 1,000 mls @ 100 mls/hr 07/06/23 00:50 07/08/23 02:54 Normal Saline Iv IV CONT 100 mls/hr .Q10H HAZEL Administration Dextrose 1,000 mls @ 100 mls/hr 07/06/23 05:04 Dextrose 5% 1,000 Ml IVPB PRN PRN Hypoglycemia Protocol Meropenem 1 gm in 100 mls @ 200 mls/hr 07/06/23 22:00 07/08/23 06:32 IVPB
[2023-07-08 12:14] LABS: Glucose Point of Care 168 mg/dl (65-105)
--- NOTE | 2023-07-08 12:57 | P.CDI_ITS ---
severe malnutrition CDI Query Clarification Request BMI 20.5 Nutritional Diagnostic Statement Severe Malnutrition as related to inadequate protein-energy intake with increased protein-energy needs in setting of chronic disease as evidenced by EER less than 75% of needs and significant weight loss of 18% (30lbs) in 3 months Please refer to the comprehensive nutrition assessment for further information. Please clarify severity of protein calorie malnutrition if known: * Mild * Moderate * Severe * Other/ Unspecified
--- NOTE | 2023-07-08 13:15 | PC.NURSE ---
Patient off of unit to GI lab
[2023-07-08 13:38] LABS: Glucose Point of Care 159 mg/dl (65-105)
[2023-07-08] MEDS: LACTATED RINGERS 1,000 ML 150 ML IV CONT (13:38)
--- NOTE | 2023-07-08 14:04 | WPDANESEPPF ---
Anes - Initial Pre Proc Eval Procedure: Operation Date: 07/08/23 14:00 Proposed Procedures p Esophagogastroduodenoscopy - Festus Guy MD Date/Time: 07/08/23 14:04 Surgeon: Kenisha Finney MD Pre Op Diagnosis: AMS Patient Data Age: 63 Gender: M Height: 1.75 m Weight: 63.1 kg Last Vital Signs Temp 97.8 F 07/08/23 13:31 Pulse 53 L 07/08/23 13:31 Resp 20 07/08/23 13:31 BP 157/70 H 07/08/23 13:31 Pulse Ox 95 07/08/23 13:31 O2 Del Method Room Air 07/08/23 13:31 O2 Flow Rate 4 07/05/23 22:53 Allergies Allergy/AdvReac Type Severity Reaction Status Date / Time Penicillins Allergy Unknown Rash Verified 07/08/23 13:27 Home Medications Medication Instructions Recorded Confirmed Type glimepiride 4 mg tablet 4 mg PO QAM #90 tabs 11/12/22 07/06/23 Rx sitagliptin phosphate 50 1 tablet PO BID #60 tabs 06/20/23 07/06/23 Rx mg-metformin 1,000 mg tablet (Janumet) metoprolol succinate 50 mg 100 mg PO DAILY 07/06/23 07/06/23 History tablet,extended release 24 hr Laboratory Tests 07/05/23 07/08/23 07/08/23 22:37 00:25 04:44 WBC RBC Hgb Hct MCV MCH MCHC RDW Plt Count MPV Immature Gran % (Auto) Neut % (Auto) Lymph % (Auto) [place] % (Auto) Eos % (Auto) Baso % (Auto) Lymph # (Auto) [place] # (Auto) Eos # (Auto) Baso # (Auto) Abs Immat Gran (auto) Absolute Neuts (auto) Absolute Nucleated RBC Nucleated RBC % Sodium Potassium Chloride Carbon Dioxide Anion Gap BUN Creatinine Estim Creat Clear Calc Estimated GFR Glucose POC Capillary Glucose 267 H mg/dl 149 H mg/dl 231 H mg/dl (65-105) (65-105) (65-105) Calcium 07/08/23 07/08/23 07/08/23 05:24 12:09 13:36 WBC 10.9 H K/mm3 (4.5-10.0) RBC 4.76 M/mm3 (4.6-6.20) Hgb 12.5 L g/dL (14.0-18.0) Hct 39.8 L % (42.0-52.0) MCV 83.6 fl (80-100) MCH 26.3 pg (26-34) MCHC 31.4 L g/dl (32-36) RDW 15.3 H % (11.5-14.5) Plt Count 258 k/mm3 (150-375) MPV 9.3 fl (7.4-10.4) Immature Gran % (Auto) 0.5 % (0-0.5) Neut % (Auto) 72.1 % (45.5-73.1) Lymph % (Auto) 19.4 % (18.3-44.2) [place] % (Auto) 6.9 % (2.6-8.5) Eos % (Auto) 0.6 % (0-4.4) Baso % (Auto) 0.5 % (0.2-1.2) Lymph # (Auto) 2.11 K/mm3 (0.9-3.2) [place] # (Auto) 0.8 H K/mm3 (0.1-0.6) Eos # (Auto) 0.1 K/mm3 (0-0.3) Baso # (Auto) 0.1 K/mm3 (0.0-0.1) Abs Immat Gran (auto) 0.05 H K/mm3 (0.00-0.031) Absolute Neuts (auto) 7.8 H K/mm3 (1.3-6.7) Absolute Nucleated RBC 0.0 K/mm3 (0.0-0.012) Nucleated RBC % 0.0 % (0.0-0.2) Sodium 133 L mmol/L (137-145) Potassium 2.9 L mmol/L (3.4-5.0) Chloride 103 mmol/L (98-107) Carbon Dioxide 26 mmol/L (22-30) Anion Gap 4 L mmol/L (8-16) BUN 6 L mg/dL (9-20) Creatinine 0.50 L mg/dL (0.7-1.3) Estim Creat Clear Calc 111 ml/min Estimated GFR > 60 (59 - ) Glucose 214 H mg/dL (65-110) POC Capillary Glucose 168 H mg/dl 159 H mg/dl (65-105) (65-105) Calcium 8.3 L mg/dL (8.4-10.2) Patient hx anesthesia problems: none Family hx anesthesia problems: none Results Review: All pre-operative results and documents have been reviewed as part of the pre-operative evaluation. PMF Past Medical History Medical History
--- NOTE | 2023-07-08 14:05 | PCOTNOTE ---
Attempted to see pt. for occupational therapy evaluation. Pt. is currently out of room for a procedure a this time. Nursing aware. Following.
[2023-07-08] MEDS: cefTRIAXone 2 GM/NS 100 ML 2 GM/100 ML BAG IVPB (20:46)
[2023-07-08 23:51] LABS: Glucose Point of Care 168 mg/dl (65-105)
[2023-07-09] VITALS (10 sets, daily range): BP systolic 155–165; BP diastolic 66–77; PULSE 50–67; RESP 16; TEMP 36.2–37; O2SAT 96–97
[2023-07-09 06:27] LABS: Glucose Point of Care 149 mg/dl (65-105)
[2023-07-09] MEDS: metroNIDAZOLE 500 MG/ISO 100ML 500 MG/100 ML BAG 100 MG IVPB ×3 (06:28→20:03)
[2023-07-09] MEDS: SODIUM CHLORIDE 0.9% IV 1,000 ML 100 ML IV CONT ×2 (06:29→20:04)
[2023-07-09 06:35] LABS: Anion Gap 9 mmol/L (8-16); Blood Urea Nitrogen 6 mg/dL (9-20); Calcium 8.3 mg/dL (8.4-10.2); Carbon Dioxide 26 mmol/L (22-30); Chloride 102 mmol/L (98-107); Estimated CRCL calculation 111 ml/min; Estimated Glomerular Filt Rate > 60; Glucose 153 mg/dL (65-110); Potassium 2.8 mmol/L (3.4-5.0); Sodium 137 mmol/L (137-145)
[2023-07-09] MEDS: PANTOPRAZOLE SODIUM IV 40 MG VIAL IV PUSH (09:02)
[2023-07-09] MEDS: NICOTINE (*PBKC) 21 MG PATCH 1 PATCH TRANSDERM (09:03)
[2023-07-09] MEDS: POTASSIUM CHLORIDE INJ 40 MEQ in SODIUM CHLORIDE 0.9% IV 500 ML 130 MEQ IVPB (09:06)
[2023-07-09] MEDS: POTASSIUM CHLORIDE 20 MEQ PACKET (FOR LIQUID) 40 MEQ PO (09:06)
[2023-07-09] MEDS: MAGNESIUM SULF 2 GM/WATER 50ML 2 GM/50 ML BAG IVPB (09:06)
[2023-07-09] MEDS: ENOXAPARIN 40 MG/0.4 ML SYRINGE SUB-Q (09:07)
--- NOTE | 2023-07-09 09:08 | WPDANESPN ---
Anes - Prog Note Post-Op Date/Time: 07/09/23 09:08 Cardiovascular status: normal Respiratory status: normal Airway patency: baseline Mental status: baseline Post-Op hydration status: normal Vital Signs: Last Vital Signs Temp 36.2 C L 07/09/23 05:19 Pulse 53 L 07/09/23 05:19 Resp 16 07/09/23 05:19 BP 165/66 H 07/09/23 05:19 Pulse Ox 97 07/09/23 05:19 O2 Del Method Room Air 07/08/23 20:00 O2 Flow Rate 4 07/05/23 22:53 Pain Score (VAS): 0 I/O: Intake & Output 07/08/23 07/09/23 07/09/23 23:59 07:59 15:59 Intake Total 1340 1000 Output Total 1000 1050 Balance 340 -50 Laboratory Tests 07/08/23 05:24 07/09/23 05:45 07/05/23 07/08/23 07/08/23 22:37 12:09 13:36 Sodium Potassium Chloride Carbon Dioxide Anion Gap BUN Creatinine Estim Creat Clear Calc Estimated GFR Glucose POC Capillary Glucose 267 H 168 H 159 H Calcium 07/08/23 07/09/23 07/09/23 23:49 05:45 06:24 Sodium 137 Potassium 2.8 L* Chloride 102 Carbon Dioxide 26 Anion Gap 9 BUN 6 L Creatinine 0.50 L Estim Creat Clear Calc 111 Estimated GFR > 60 Glucose 153 H POC Capillary Glucose 168 H 149 H Calcium 8.3 L Post-procedural complaints: none Patient Feedback: Patient satisfied with anesthetic care.
[2023-07-09 09:31] LABS: Magnesium 1.8 mg/dL (1.6-2.3)
--- NOTE | 2023-07-09 09:31 | PC.NURSE ---
Orders to change metoprolol to 12.5 BID.
--- NOTE | 2023-07-09 11:57 | PM.IMPN ---
Progress Note: A&P Assessment and Plan (1) Sepsis: Code(s): A41.9 - Sepsis, unspecified organism Status: Acute Assessment and Plan: Resolved, continue antibiotics. (2) Colitis: Code(s): K52.9 - Noninfective gastroenteritis and colitis, unspecified Status: Acute Assessment and Plan: ? Significance of colitis Continue antibiotics (3) Lactic acidosis: Code(s): E87.20 - Acidosis, unspecified Status: Acute Assessment and Plan: Improving, repeated 2 hour after rehydration and currently within normal. Related to above (4) Diabetes type 2, controlled: Qualifiers: Diabetes mellitus longterm insulin use: without longterm use Diabetes mellitus complication status: with hyperglycemia Qualified Code(s): E11.65 - Type 2 diabetes mellitus with hyperglycemia Code(s): E11.9 - Type 2 diabetes mellitus without complications Status: Acute Assessment and Plan: Monitor (5) Altered mental status: Code(s): R41.82 - Altered mental status, unspecified Status: Acute Assessment and Plan: Improved (6) Dysphagia: Code(s): R13.10 - Dysphagia, unspecified Status: Acute Assessment and Plan: Esophagram noted. Await bx results - likely esophageal ca oncology consult ct brain, chest, abd, pelvis (7) Tobacco abuse: Code(s): Z72.0 - Tobacco use Status: Acute Assessment and Plan: Patient will need to be educated about the benefits of smoking cessation. Subjective Date/time seen: 07/09/23 11:57 Interval history: no new complaints Exam Narrative: AF 97.5 154/83 62 16 92% ra Gen - NARD lying left side down Chest - CTA bilaterally, nml RR CV - RRR S1/S2. Tele showing mostly paced rhythm Abd - soft, no apparent tenderness (refuses to lay flat) Ext - No pedal edema Neuro - Alert. Oriented x 2 (did not know year or location) Psych - hard to assess Skin - Warm and dry Objective Data Vital Signs Vital Signs: Vital Signs - 24 hr 07/08/23 12:00 07/08/23 13:31 07/08/23 14:27 Temperature 97.8 F Pulse Rate 89 53 L 54 L Respiratory Rate 20 21 H Blood Pressure 157/70 H 131/70 Pulse Oximetry 95 99 Oxygen Delivery Room Air Room Air 07/08/23 14:37 07/08/23 14:47 07/08/23 15:34 Temperature 97.9 F Pulse Rate 52 L 52 L 51 L Respiratory Rate 20 20 18 Blood Pressure 138/71 140/70 166/70 H Pulse Oximetry 99 99 96 Oxygen Delivery Room Air Room Air 07/08/23 16:00 07/08/23 20:55 07/08/23 20:00 Temperature 97.9 F Pulse Rate 51 L 52 L 58 L Respiratory Rate 16 Blood Pressure 156/68 H Pulse Oximetry 94 Oxygen Delivery 07/08/23 20:00 07/09/23 00:00 07/09/23 04:00 Temperature Pulse Rate 50 L 54 L Respiratory Rate Blood Pressure Pulse Oximetry Oxygen Delivery Room Air 07/09/23 05:19 07/09/23 08:00 Temperature 97.2 F L Pulse Rate 53 L 53 L Respiratory Rate 16 Blood Pressure 165/66 H Pulse Oximetry 97 Oxygen Delivery Room Air Intake/Output Intake/Output: Intake & Output 07/06/23 07/07/23 07/08/23 07/09/23 23:59 23:59 23:59 23:59 Intake Total 1700 3550 3740 1000 Output Total 2600 1650 4000 1350 Balance -900 1900 -260 -350 Meds/Results Medications: Active Medications Generic Name Dose Route Start Last Admin Trade Name Freq PRN Reason Stop Dose Admin Dextrose 12.5 gm 07/06/23 05:04 Dextrose 50% 25 Gm/50 Ml Syringe IV PUSH PRN PRN Hypoglycemia Protocol Enoxaparin Sodium 40 mg 07/06/23 09:00 07/09/23 09:07 Enoxaparin 40 Mg/0.4 Ml Syringe SUB-Q 40 mg DAILY HAZEL Administration Glucagon 1 mg 07/06/23 05:04 Glucagon For Inj 1 Mg Vial IM PRN PRN Hypoglycemia Protocol Glucose 15 gm 07/06/23 05:04 Glucose Oral Gel 15 Gm Of Glucse In 37.5 Gm Tube PO PRN PRN Hypoglycemia Protocol Sodium Chloride 1,000 mls @ 100 mls/hr 08
[2023-07-09 12:52] LABS: Glucose Point of Care 170 mg/dl (65-105)
[2023-07-09 13:57] LABS: Potassium 3.2 mmol/L (3.4-5.0)
--- NOTE | 2023-07-09 14:33 | WPDGIPROGNO ---
Progress Note: A&P Assessment and Plan (1) Altered mental status: Code(s): R41.82 - Altered mental status, unspecified Status: Acute Assessment and Plan: he was found incoherent on the floor of his family room last night. His mental status has improved. No acute changes were reported on his CT of the head. 07/09/2023 very alert and oriented today, even humerous (2) Dysphagia: Code(s): R13.10 - Dysphagia, unspecified Status: Acute Assessment and Plan: He has been unable to eat for the past month or so and has lost a significant amount of weight. Modified barium swallow has just been completed. Results are not yet available. No significant improvement since endoscopy. Able to get shakes down (3) Colitis: Code(s): K52.9 - Noninfective gastroenteritis and colitis, unspecified Status: Acute Assessment and Plan: He has not reported any changes in bowel habits but CT scan does show edema in the sigmoid colon suggestive of ischemic or other colitis. If stools can be obtained will check for infectious etiology. (4) Lactic acidosis: Code(s): E87.20 - Acidosis, unspecified Status: Acute Assessment and Plan: Initially elevated, lactic acid level has returned to normal, Currently 1.7. (5) Tobacco abuse: Code(s): Z72.0 - Tobacco use Status: Acute Assessment and Plan: He smokes 2 packs per day. (6) Weight loss, unintentional: Code(s): R63.4 - Abnormal weight loss Status: Acute Assessment and Plan: Weight loss apparently is due to inability to eat. I suspect esophageal problem unless MBS revealed that he has a neurologic deficit. Plan Squamous cell carcinoma is the presumptive diagnosis. Pathology is still pending. Oncology has been consulted. I will be out of town for the next [address] Scott will be covering in my absence Subjective Date/time seen: 07/09/23 14:33 He has not noticed much improvement in swallowing since yesterday. On endoscopy he had a very tight stenosis in the proximal esophagus but I was able to gingerly push the scope through. Thurman as though it may have dilated somewhat. At any rate he is about the same. He is able to get some liquids down and shakes. Pathology is still pending I told that we suspect cancer and he is well aware of that. Oncology has been consulted. Exam Const: General: cooperative and awake Orientation/consciousness: patient oriented x3 HENMT: Head: normal to inspection Ears: hearing grossly normal bilaterally Mouth: Yes Normal oral and palatal mucosa present Eyes: General: appearance normal, both eyes and all related structures Neck: Neck: normal visual inspection Chest: Chest palpation & inspection: normal inspection of the chest Resp: Effort & Inspection: normal respiratory effort Auscultation: clear to auscultation bilaterally Cardio: Rate: regular rate Rhythm: regular rhythm GI: Inspection: normal to inspection and scaphoid Auscultation: normal bowel sounds Skin: General skin exam: normal color and no jaundice Neuro: General: patient oriented x3 Speech: normal speech Objective Data Vital Signs Vital Signs: Vital Signs - 24 hr 07/08/23 14:37 07/08/23 14:47 07/08/23 15:34 Temperature 36.6 C Pulse Rate 52 L 52 L 51 L Respiratory Rate 20 20 18 Blood Pressure 138/71 140/70 166/70 H Pulse Oximetry 99 99 96 Oxygen Delivery Room Air Room Air 07/08/23 16:00 07/08/23 20:55 07/08/23 20:00 Temperature 36.6 C Pulse Rate 51 L 52 L 58 L Respiratory Rate 16 Blood Pressure 156/68 H Pulse Oximetry 94 Oxygen Delivery 07/08/23 20:00 07/09/23 00:00 07/09/23 04:00 Temperature Pulse Rate 50 L 54 L Respiratory Rate Blood Pressure Pulse Oximetry Oxygen Delivery Room Air 07/09/23 05:19 07/09/23 08:00 07/09/23 08:00 Temperature 36.2 C L Pulse Rate 53 L 53 L 51 L Respiratory Rate 16 Blood
[2023-07-09 17:21] LABS: Potassium 3.1 mmol/L (3.4-5.0)
--- NOTE | 2023-07-09 18:07 | PDONCCN ---
HPI - Date of Consult Date/Time: 07/09/23 18:07 Requesting Physician: Kenisha Finney MD Primary Care Provider: Ruben Woods MD - Consult Narrative Reason for consult: Likely esophageal cancer Narrative: Raoul Bacon Jr. is a 63 year old male with history of type 2 diabetes and congestive heart failure along with history of smoking 2 pack per day for more than 50 years duration came into the hospital with declining performance status. He has lost more than 35 lb weight in last 6-8 weeks duration with poor oral intake due to dysphagia. For last 2 weeks he has not been eating much. He denies any chest pain and shortness of breath. Patient was found to be unresponsive by the and brought into the ER. CT abdomen and pelvis was performed due to nausea vomiting that showed mild periportal lymphadenopathy with colitis. Barium swallow was performed due to dysphagia that showed mild pharyngeal dysphagia without laryngeal penetration. Barium swallow showed 4 cm stricture at the proximal to midesophagus with asymmetric wall thickening concerning for esophageal cancer. EGD was performed on July 08 that showed some mucosal appearing upper esophageal mass with reflux esophagitis and biopsies were taken. Pathology is pending. He denies any previous history of malignancy. Review of Systems - Review of Systems All systems reviewed & are unremarkable except as noted in HPI and bel - Neurologic Reports weakness [facility] Medical History: Medical History (Last Reviewed 07/07/23 @ 12:23 by Festus Guy MD) BMI 22.0-22.9, adult BMI 24.0-24.9, adult BMI 25.0-25.9,adult Diabetes type 2, controlled Furuncle of back, except buttock Heart failure Surgical History: Surgical History (Last Reviewed 07/07/23 @ 12:23 by Festus Guy MD) History of permanent cardiac pacemaker placement Family History: Family History (Last Reviewed 07/07/23 @ 12:23 by Festus Guy MD) Father Acute myocardial infarction Mother No problems noted. Sibling Diabetes mellitus - Social History Social History: Social History (Last Reviewed 07/07/23 @ 12:23 by Festus Guy MD) Gender Identity: Gender identity (if verbalized by the patient): Male Alcohol Use: Alcohol intake: former Substance Use: Substance use: current Substance use type: marijuana Others: Spiritual care concerns: No Living Arrangements: Living arrangements: with family Oppucation/Education: Occupation/Education: retired Smoking Status: Smoking status: Current every day smoker Tobacco type: cigarettes Second hand tobacco smoke exposure: Yes Smoking Pack-years: Smoking packs per day: 2 Smoking cigarettes per day: 40.0 Years smoked: 40 Smoking pack-years: 60.00 Social Determinants of Health: Has the Lack of Transportation Kept You From Medical Appointments or From Getting Medications?: No Within the Past 12 Months, Were You Worried Whether Your Food Would Run Out Before You Got Money to Buy More?: Never True What is Your Housing Situation Today?: I Have Housing Are You Worried That in the Next 2 Months, You May Not Have Your Own Housing to Live In?: No Do You Have Trouble Paying Your Heating Or Electricity Bill?: No Do You Have Trouble Paying For Medicines?: No Are You Currently Unemployed and Looking for Work?: No Highest Level of Education Completed: Decline to Answer Do You Have Trouble With Childcare or the Care of a Family Member?: No Exam - Vital Signs Vital Signs - 24 hr 07/08/23 20:55 07/08/23 20:00 07/08/23 20:00 Temperature 36.6 C Pulse Rate 52 L 58 L Respiratory Rate 16 Blood Pressure 156/68 H Pulse Oximetry 94 Oxygen Delivery Room Air 07/09/23 00:00 07/09/23 04:00 07/09/23 05:19 Temperature 36.2 C L Pulse Rate 50 L 54 L 53 L Respiratory Rate 16 Blood Pressur
[2023-07-09 18:37] LABS: Glucose Point of Care 188 mg/dl (65-105)
[2023-07-09] MEDS: cefTRIAXone 2 GM/NS 100 ML 2 GM/100 ML BAG IVPB (20:03)
[2023-07-09] MEDS: METOPROLOL TARTRATE 12.5 MG TABLET PO (20:03)
[2023-07-09 21:04] LABS: Potassium 3.4 mmol/L (3.4-5.0)
[2023-07-10] VITALS (11 sets, daily range): BP systolic 151–167; BP diastolic 69–77; PULSE 53–70; RESP 16–18; TEMP 36.3–36.6; O2SAT 95–99
[2023-07-10 00:30] LABS: Glucose Point of Care 137 mg/dl (65-105)
[2023-07-10 06:02] LABS: Anion Gap 8 mmol/L (8-16); Blood Urea Nitrogen 6 mg/dL (9-20); Calcium 7.8 mg/dL (8.4-10.2); Carbon Dioxide 22 mmol/L (22-30); Chloride 103 mmol/L (98-107); Estimated CRCL calculation 111 ml/min; Estimated Glomerular Filt Rate > 60; Glucose 135 mg/dL (65-110); Sodium 133 mmol/L (137-145)
[2023-07-10] MEDS: metroNIDAZOLE 500 MG/ISO 100ML 500 MG/100 ML BAG 100 MG IVPB ×3 (06:02→21:46)
[2023-07-10] MEDS: NICOTINE (*PBKC) 21 MG PATCH 1 PATCH TRANSDERM (08:56)
[2023-07-10] MEDS: ENOXAPARIN 40 MG/0.4 ML SYRINGE SUB-Q (08:56)
[2023-07-10] MEDS: PANTOPRAZOLE SODIUM IV 40 MG VIAL IV PUSH (08:56)
[2023-07-10] MEDS: METOPROLOL TARTRATE 12.5 MG TABLET PO ×2 (08:57→20:43)
[2023-07-10] MEDS: POTASSIUM CHLORIDE INJ 40 MEQ in SODIUM CHLORIDE 0.9% IV 500 ML 130 MEQ IVPB ×2 (10:36→14:18)
--- NOTE | 2023-07-10 10:58 | PCDIET ---
Dietitian consult for TPN. Spoke with nursing today, plans for PICC. Recommending Clinimix E at 40 ml/hr with 250 ml of 20% Lipid Emulsion. TPN providing 1182 kcals and 48 gms protein. Recommend increasing TPN daily by 10 ml to goal rate of 70 ml/hr which will provide 1693 kcals and 84 gms protein. Meeting 89% kcal and protein needs and 30 kcal/kg and 1.0-1.2 gm/kg protein. USP nutrition would recommend PEG placement. Will continue to monitor.
--- NOTE | 2023-07-10 11:23 | PM.IMPN ---
Progress Note: A&P Assessment and Plan (1) Sepsis: Code(s): A41.9 - Sepsis, unspecified organism Status: Acute Assessment and Plan: Resolved, continue antibiotics. (2) Colitis: Code(s): K52.9 - Noninfective gastroenteritis and colitis, unspecified Status: Acute Assessment and Plan: ? 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 Await bx results - likely esophageal ca oncology consult ct brain, chest, abd, pelvis (7) Tobacco abuse: Code(s): Z72.0 - Tobacco use Status: Acute Assessment and Plan: Patient will need to be educated about the benefits of smoking cessation. (8) Lung mass: Code(s): R91.8 - Other nonspecific abnormal finding of lung field Status: Acute Assessment and Plan: Hematology-Oncology aware. Will await biopsy results of the esophagus. (9) Malnutrition: Code(s): E46 - Unspecified protein-calorie malnutrition Status: Acute Assessment and Plan: Severe, patient considering PEG tube. Will likely eventually need PEG tube. PICC line inserted today, will start TPN as he is not able to tolerate any oral intake Subjective Date/time seen: 07/10/23 11:23 Interval history: No new complaint Exam Narrative: AF 97.5 154/83 62 16 92% ra Gen - NARD lying left side down Chest - CTA bilaterally, nml RR CV - RRR S1/S2. Tele showing mostly paced rhythm Abd - soft, no apparent tenderness (refuses to lay flat) Ext - No pedal edema Neuro - Alert. Oriented x 2 (did not know year or location) Psych - hard to assess Skin - Warm and dry Objective Data Vital Signs Vital Signs: Vital Signs - 24 hr 07/09/23 12:00 07/09/23 15:14 07/09/23 16:00 Temperature 97.8 F Pulse Rate 59 L 58 L 59 L Respiratory Rate 16 Blood Pressure Pulse Oximetry 96 Oxygen Delivery 07/09/23 20:03 07/09/23 22:00 07/09/23 20:00 Temperature 98.6 F Pulse Rate 62 67 61 Respiratory Rate 16 Blood Pressure 155/77 H Pulse Oximetry 97 Oxygen Delivery 07/09/23 20:00 07/10/23 00:00 07/10/23 04:00 Temperature Pulse Rate 53 L 60 Respiratory Rate Blood Pressure Pulse Oximetry Oxygen Delivery Room Air 07/10/23 06:00 07/10/23 08:57 Temperature 97.8 F Pulse Rate 58 L 58 L Respiratory Rate 16 Blood Pressure 167/69 H Pulse Oximetry 99 Oxygen Delivery Intake/Output Intake/Output: Intake & Output 07/07/23 07/08/23 07/09/23 07/10/23 23:59 23:59 23:59 23:59 Intake Total 3550 3840 3110 Output Total 1650 4000 1550 1300 Balance 1900 -160 1560 -1300 Meds/Results Medications: Active Medications Generic Name Dose Route Start Last Admin Trade Name Freq PRN Reason Stop Dose Admin Dextrose 12.5 gm 07/06/23 05:04 Dextrose 50% 25 Gm/50 Ml Syringe IV PUSH PRN PRN Hypoglycemia Protocol Enoxaparin Sodium 40 mg 07/06/23 09:00 07/10/23 08:56 Enoxaparin 40 Mg/0.4 Ml Syringe SUB-Q 40 mg DAILY HAZEL Administration Glucagon 1 mg 07/06/23 05:04 Glucagon For Inj 1 Mg Vial IM PRN PRN Hypoglycemia Protocol Glucose 15 gm 07/06/23 05:04
--- NOTE | 2023-07-10 11:39 | PCOTNOTE ---
Attempted to see pt. for occuptaional therapy evaluation. Pt. having picc placed, unable to participate at this time. Nursing aware.
[2023-07-10] MEDS: LIDOCAINE HCL 1% PF INJ 5 ML VIAL INFILTRATE (11:45)
[2023-07-10 12:44] LABS: Glucose Point of Care 135 mg/dl (65-105)
[2023-07-10 13:10] LABS: Basophils Percent Auto 0.3 % (0.2-1.2); Eosinophils Percent Auto 0.3 % (0-4.4); Hematocrit 43.8 % (42.0-52.0); Immature Granulocyte Absolute 0.04 K/mm3 (0.00-0.031); Immature Granulocyte Percent A 0.3 % (0-0.5); Lymphocytes Absolute Auto 1.33 K/mm3 (0.9-3.2); Lymphocytes Percent Auto 11.6 % (18.3-44.2); Mean Corpuscular Hemoglobin 26.5 pg (26-34); Mean Corpuscular Volume 82.8 fl (80-100); Mean Platelet Volume 9.2 fl (7.4-10.4); Monocytes Absolute Auto 0.7 K/mm3 (0.1-0.6); Monocytes Percent Auto 6.5 % (2.6-8.5); Neutrophils Absolute Auto 9.3 K/mm3 (1.3-6.7); Platelet Count Result 310 k/mm3 (150-375); Red Blood Count 5.29 M/mm3 (4.6-6.20); Red Cell Distribution Width 15.4 % (11.5-14.5); White Blood Count 11.5 K/mm3 (4.5-10.0)
[2023-07-10 13:20] LABS: Alanine Aminotransferase 14 U/L (6-50); Albumin Level 3.8 g/dL (3.5-5.1); Alkaline Phosphatase 61 U/L (38-126); Anion Gap 14 mmol/L (8-16); Aspartate Amino Transferase 23 U/L (17-59); Bilirubin,Total 0.5 mg/dL (0.2-1.3); Blood Urea Nitrogen 6 mg/dL (9-20); Carbon Dioxide 21 mmol/L (22-30); Chloride 101 mmol/L (98-107); Estimated CRCL calculation 111 ml/min; Estimated Glomerular Filt Rate > 60; Glucose 142 mg/dL (65-110); Magnesium 1.8 mg/dL (1.6-2.3); Potassium 3.3 mmol/L (3.4-5.0); Sodium 136 mmol/L (137-145)
[2023-07-10 13:25] LABS: Partial Thromboplastin Time 42.2 SECONDS (22.3-36.8)
[2023-07-10 13:27] LABS: Transferrin 195 mg/dL (206-381)
--- NOTE | 2023-07-10 13:37 | WPDGIPROGNO ---
Progress Note: A&P Assessment and Plan (1) Esophageal mass: Code(s): K22.89 - Other specified disease of esophagus Status: Acute Assessment and Plan: most likely malignancy- awating biopsies CT scan with left hilar and mediastinal lymphadenopathy, consistent metastatic disease. also noted new mass in left lung c/w lung cancer oncology evaluated patient (2) Malnutrition: Code(s): E46 - Unspecified protein-calorie malnutrition Status: Acute Assessment and Plan: he is unable to eat offered to place peg but he would like to wait on definitive path report but still he does not even know if would like to undergo more invasive procedures I will check again on patient tomorrow and we can discuss more about it (3) Dysphagia: Code(s): R13.10 - Dysphagia, unspecified Status: Acute Assessment and Plan: weight loss and malnutrition recommending peg soon (4) Weight loss, unintentional: Code(s): R63.4 - Abnormal weight loss Status: Acute (5) Lung mass: Code(s): R91.8 - Other nonspecific abnormal finding of lung field Status: Acute Assessment and Plan: also he has new mass in lung oncology on board (6) Tobacco abuse: Code(s): Z72.0 - Tobacco use Status: Acute Subjective Date/time seen: 07/10/23 13:37 Interval history: still unable to eat (spiting up saliva) egd yesterday with partial obstructive mass in proximal esophagus- pending biopsies Veronica, his , is at bedside Review of Systems Review of Systems: All systems reviewed & are unremarkable except as noted in HPI and below Exam Const: General: cooperative and awake Orientation/consciousness: patient oriented x3 Other: thin HENMT: Head: normal to inspection Ears: hearing grossly normal bilaterally Eyes: General: appearance normal, both eyes and all related structures Neck: Neck: normal visual inspection Chest: Chest palpation & inspection: normal inspection of the chest Resp: Effort & Inspection: normal respiratory effort Auscultation: clear to auscultation bilaterally Cardio: Rate: regular rate Rhythm: regular rhythm GI: Inspection: normal to inspection and scaphoid GI Palp: Yes Soft to palpation and No Guarding due to palpation present (GI) Auscultation: normal bowel sounds Skin: General skin exam: normal color Neuro: General: patient oriented x3 Speech: normal speech Motor exam (neuro): 5/5 motor strength present throughout Extrem: General: normal to inspection Psych: Mental Status: mental status grossly normal Objective Data Vital Signs Vital Signs: Vital Signs - 24 hr 07/09/23 15:14 07/09/23 16:00 07/09/23 20:03 Temperature 97.8 F Pulse Rate 58 L 59 L 62 Respiratory Rate 16 Blood Pressure Pulse Oximetry 96 Oxygen Delivery 07/09/23 22:00 07/09/23 20:00 07/09/23 20:00 Temperature 98.6 F Pulse Rate 67 61 Respiratory Rate 16 Blood Pressure 155/77 H Pulse Oximetry 97 Oxygen Delivery Room Air 07/10/23 00:00 07/10/23 04:00 07/10/23 06:00 Temperature 97.8 F Pulse Rate 53 L 60 58 L Respiratory Rate 16 Blood Pressure 167/69 H Pulse Oximetry 99 Oxygen Delivery 07/10/23 08:57 07/10/23 08:00 Temperature Pulse Rate 58 L Respiratory Rate Blood Pressure Pulse Oximetry Oxygen Delivery Room Air Intake/Output Intake/Output: Intake & Output 07/07/23 07/08/23 07/09/23 07/10/23 23:59 23:59 23:59 23:59 Intake Total 3550 3840 3110 100 Output Total 1650 4000 1550 1300 Balance 1900 -160 1560 -1200 Meds/Results Medications: Active Medications Generic Name Dose Route Start Last Admin Trade Name Freq PRN Reason Stop Dose Admin Dextrose 12.5 gm 07/06/23 05:04 Dextrose 50% 25 Gm/50 Ml Syringe IV PUSH PRN PRN Hypoglycemia Protocol Enoxaparin Sodium 40 mg 07/06/23 09:00 07/10/23 08:56 Enoxaparin 40 Mg/0.4 Ml Syringe SUB-Q 40 mg CHIQUIS
[2023-07-10] MEDS: AMINO ACIDS 5%/D15W/E-LYTES/CA 2,000 ML with MULTIVITAMINS-12 INJ VIAL 1 2.5 ML, MULTIV... 40 ML IV CONT (14:06)
[2023-07-10] MEDS: FAT EMULSIONS IV 20% 250 ML 20.83 ML IVPB (14:07)
[2023-07-10] MEDS: CENTRAL LINE FLUSH 10 ML IV PUSH ×2 (14:07→21:52)
[2023-07-10 17:59] LABS: Glucose Point of Care 183 mg/dl (65-105)
[2023-07-10] MEDS: cefTRIAXone 2 GM/NS 100 ML 2 GM/100 ML BAG IVPB (20:46)
[2023-07-10 21:13] LABS: Potassium 3.7 mmol/L (3.4-5.0)
[2023-07-10] MEDS: SODIUM CHLORIDE 0.9% IV 1,000 ML 100 ML IV CONT (21:52)
[2023-07-10 23:48] LABS: Glucose Point of Care 197 mg/dl (65-105)
[2023-07-11] VITALS (11 sets, daily range): BP systolic 147–158; BP diastolic 74–86; PULSE 55–79; RESP 16; TEMP 36.2–36.6; O2SAT 96–97
[2023-07-11] MEDS: metroNIDAZOLE 500 MG/ISO 100ML 500 MG/100 ML BAG 100 MG IVPB ×3 (05:37→21:09)
[2023-07-11] MEDS: CENTRAL LINE FLUSH 10 ML IV PUSH ×3 (05:39→21:11)
[2023-07-11 05:53] LABS: Basophils Percent Auto 0.3 % (0.2-1.2); Eosinophils Absolute Auto 0.2 K/mm3 (0-0.3); Hematocrit 40.6 % (42.0-52.0); Hemoglobin 12.8 g/dL (14.0-18.0); Immature Granulocyte Absolute 0.04 K/mm3 (0.00-0.031); Immature Granulocyte Percent A 0.4 % (0-0.5); Lymphocytes Absolute Auto 1.84 K/mm3 (0.9-3.2); Lymphocytes Percent Auto 18.4 % (18.3-44.2); Mean Corpuscular HGB Conc 31.5 g/dl (32-36); Mean Corpuscular Hemoglobin 26.3 pg (26-34); Mean Corpuscular Volume 83.4 fl (80-100); Mean Platelet Volume 9.3 fl (7.4-10.4); Monocytes Absolute Auto 0.8 K/mm3 (0.1-0.6); Monocytes Percent Auto 8.1 % (2.6-8.5); Neutrophils Absolute Auto 7.1 K/mm3 (1.3-6.7); Neutrophils Percent Auto 70.8 % (45.5-73.1); Platelet Count Result 294 k/mm3 (150-375); Red Blood Count 4.87 M/mm3 (4.6-6.20); Red Cell Distribution Width 15.3 % (11.5-14.5)
[2023-07-11 06:03] LABS: Alanine Aminotransferase 12 U/L (6-50); Albumin Level 3.4 g/dL (3.5-5.1); Alkaline Phosphatase 54 U/L (38-126); Anion Gap 4 mmol/L (8-16); Aspartate Amino Transferase 18 U/L (17-59); Bilirubin,Total 0.2 mg/dL (0.2-1.3); Blood Urea Nitrogen 7 mg/dL (9-20); Carbon Dioxide 28 mmol/L (22-30); Chloride 103 mmol/L (98-107); Estimated CRCL calculation 135 ml/min; Estimated Glomerular Filt Rate > 60; Glucose 217 mg/dL (65-110); Magnesium 1.8 mg/dL (1.6-2.3); Phosphorus 2.6 mg/dL (2.5-4.5); Sodium 135 mmol/L (137-145)
[2023-07-11 06:17] LABS: Glucose Point of Care 200 mg/dl (65-105)
[2023-07-11] MEDS: POTASSIUM CHLORIDE INJ 40 MEQ in SODIUM CHLORIDE 0.9% IV 500 ML 130 MEQ IVPB (09:36)
[2023-07-11] MEDS: SODIUM CHLORIDE 0.9% IV 1,000 ML 100 ML IV CONT (09:44)
[2023-07-11] MEDS: ENOXAPARIN 40 MG/0.4 ML SYRINGE SUB-Q (09:45)
[2023-07-11] MEDS: PANTOPRAZOLE SODIUM IV 40 MG VIAL IV PUSH (09:45)
[2023-07-11] MEDS: NICOTINE (*PBKC) 21 MG PATCH 1 PATCH TRANSDERM (09:46)
[2023-07-11] MEDS: METOPROLOL TARTRATE 12.5 MG TABLET PO ×2 (09:46→20:12)
--- NOTE | 2023-07-11 11:45 | PM.IMPN ---
Progress Note: A&P Assessment and Plan (1) Sepsis: Code(s): A41.9 - Sepsis, unspecified organism Status: Acute Assessment and Plan: Resolved, continue antibiotics. (2) Colitis: Code(s): K52.9 - Noninfective gastroenteritis and colitis, unspecified Status: Acute Assessment and Plan: ? 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 Await bx results - likely esophageal ca oncology consult ct brain, chest, abd, pelvis (7) Tobacco abuse: Code(s): Z72.0 - Tobacco use Status: Acute Assessment and Plan: Patient will need to be educated about the benefits of smoking cessation. (8) Lung mass: Code(s): R91.8 - Other nonspecific abnormal finding of lung field Status: Acute Assessment and Plan: Hematology-Oncology aware. Will await biopsy results of the esophagus. (9) Malnutrition: Code(s): E46 - Unspecified protein-calorie malnutrition Status: Acute Assessment and Plan: Severe, patient considering PEG tube. Will likely eventually need PEG tube. PICC line inserted today, will start TPN as he is not able to tolerate any oral intake Subjective Date/time seen: 07/11/23 11:45 Interval history: No new complaints. Exam Narrative: AF 97.5 154/83 62 16 92% ra Gen - NARD lying left side down Chest - CTA bilaterally, nml RR CV - RRR S1/S2. Tele showing mostly paced rhythm Abd - soft, no apparent tenderness (refuses to lay flat) Ext - No pedal edema Neuro - Alert. Oriented x 2 (did not know year or location) Psych - hard to assess Skin - Warm and dry Objective Data Vital Signs Vital Signs: Vital Signs - 24 hr 07/10/23 14:00 07/10/23 12:00 07/10/23 16:00 Temperature 97.5 F L Pulse Rate 63 68 70 Respiratory Rate 16 Blood Pressure 154/69 H Pulse Oximetry 96 Oxygen Delivery 07/10/23 20:25 07/10/23 20:43 07/10/23 20:00 Temperature 97.3 F L Pulse Rate 68 70 66 Respiratory Rate 18 Blood Pressure 151/77 H Pulse Oximetry 95 Oxygen Delivery 07/10/23 20:00 07/11/23 00:00 07/11/23 04:00 Temperature Pulse Rate 70 62 55 L Respiratory Rate 18 Blood Pressure Pulse Oximetry 95 Oxygen Delivery Room Air 07/11/23 05:49 07/11/23 09:46 07/11/23 08:00 Temperature 97.9 F Pulse Rate 60 74 Respiratory Rate 16 Blood Pressure 158/86 H Pulse Oximetry 97 Oxygen Delivery Room Air 07/11/23 10:15 Temperature Pulse Rate Respiratory Rate Blood Pressure Pulse Oximetry Oxygen Delivery Room Air Intake/Output Intake/Output: Intake & Output 07/08/23 07/09/23 07/10/23 07/11/23 23:59 23:59 23:59 23:59 Intake Total 3840 3210 1920 1275 Output Total 4000 1550 1300 2000 Balance -160 7670 829 -620 Meds/Results Medications: Active Medications Generic Name Dose Route Start Last Admin Trade Name Freq PRN Reason Stop Dose Admin Dextrose 12.5 gm 07/06/23 05:04 Dextrose 50% 25 Gm/50 Ml Syringe IV PUSH PRN PRN Hypoglycemia Protocol Enoxaparin Sodium 40 mg 07/06/23 09:00 07/11/23 09:45 Enoxaparin 40 Mg/0.4 Ml Syringe SUB-Q 40 mg DAILY
[2023-07-11 12:16] LABS: Glucose Point of Care 206 mg/dl (65-105)
[2023-07-11 12:57] LABS: Triglycerides 133 mg/dL (<150)
[2023-07-11] MEDS: INSULIN ASPART (*BKC) 100 UNITS/ML SUB-Q ×2 (13:14→17:32)
[2023-07-11] MEDS: AMINO ACIDS 5%/D15W/E-LYTES/CA 2,000 ML with MULTIVITAMINS-12 INJ VIAL 1 2.5 ML, MULTIV... 50 ML IV CONT (13:15)
[2023-07-11] MEDS: FAT EMULSIONS IV 20% 250 ML 20.83 ML IVPB (13:16)
--- NOTE | 2023-07-11 13:17 | PCNFU ---
Nutrition Follow-Up Complete: Severe Malnutrition as related to inadequate protein-energy intake with increased protein-energy needs in setting of chronic disease as evidenced by EER less than 75% of needs and significant weight loss of 18% (30ibs) in 3 months. Goal: Meet estimated nutritional needs Patient not meeting goal at this time. Will continue current goal. Pt current nutrition is Pureed, Level 4/TPN. Last recorded weight is 63.1 kg. Bowel Motility:No BM reported. Labs Reviewed:Glu 217, BUN 7, Na 136, Hct 40.6, Hgb 12.8,Glu 217, Cr 0.4 Meds Noted: Lovenox, Flagyl, Clinimix E at 50 ml/hr with 250 ml of 20% Lipid Emulsion. Skin:WNL Additional Notes: TPN advanced today to 50 ml/hr providing patient with 1352 kals/60 gms protein. Patient is wanting diet upgraded from Pureed, Level 4. Spoke with Speech therapy. Recommendations will be discussed with hospitalist today for Minced and Moist, Level 5. Patient continues to refuse meals. Diet supplement changed from Ensure compact to Nutritional Ice Cream BID providing an additional 300 kcals and 9 gms protein. Agree with diet orders. Will monitor weight, labs, skin, oral intake every Saturday/Saturday.
--- NOTE | 2023-07-11 14:07 | PCPTNOTE ---
Attempted to see patient for PT, however patient declined due to patient wanting rest at this time.
--- NOTE | 2023-07-11 14:47 | WPDGIPROGNO ---
Progress Note: A&P Assessment and Plan (1) Esophageal mass: Code(s): K22.89 - Other specified disease of esophagus Status: Acute Assessment and Plan: most likely malignancy but biopsies showed benign tissue will repeat EGD with more biopsies tomorrow (this was explained to him and he is agreeable), another alternative is that was extrinsic mass compressing esophagus (CT scan noted left hilar and mediastinal lymphadenopathy, consistent metastatic disease. Also noted new mass in left lung c/w lung cancer). If egd with biopsies not helpful then we can arrange EUS of esophagus or ask IR to get tissue oncology evaluated patient (2) Malnutrition: Code(s): E46 - Unspecified protein-calorie malnutrition Status: Acute Assessment and Plan: he is unable to eat he would like to find out etiology of esophageal obstruction before proceeding peg but regardless he will need PEG (3) Dysphagia: Code(s): R13.10 - Dysphagia, unspecified Status: Acute Assessment and Plan: weight loss and malnutrition TPN for now but he will need peg soon (4) Weight loss, unintentional: Code(s): R63.4 - Abnormal weight loss Status: Acute (5) Lung mass: Code(s): R91.8 - Other nonspecific abnormal finding of lung field Status: Acute Assessment and Plan: also he has new mass in lung oncology on board (6) Tobacco abuse: Code(s): Z72.0 - Tobacco use Status: Acute Subjective Date/time seen: 07/11/23 14:47 Interval history: TPN was started, still unable to eat Review of Systems Review of Systems: All systems reviewed & are unremarkable except as noted in HPI and below Exam Const: General: cooperative and awake Orientation/consciousness: patient oriented x3 Other: thin HENMT: Head: normal to inspection Ears: hearing grossly normal bilaterally Eyes: General: appearance normal, both eyes and all related structures Neck: Neck: normal visual inspection Chest: Chest palpation & inspection: normal inspection of the chest Resp: Auscultation: no crackles and rhonchi Cardio: Rate: regular rate Rhythm: regular rhythm GI: Inspection: normal to inspection and scaphoid GI Palp: Yes Soft to palpation and No Guarding due to palpation present (GI) Auscultation: normal bowel sounds Skin: General skin exam: normal color Neuro: General: patient oriented x3 Speech: normal speech Motor exam (neuro): 5/5 motor strength present throughout Extrem: General: normal to inspection Psych: Mental Status: mental status grossly normal Objective Data Vital Signs Vital Signs: Vital Signs - 24 hr 07/10/23 16:00 07/10/23 20:25 07/10/23 20:43 Temperature 97.3 F L Pulse Rate 70 68 70 Respiratory Rate 18 Blood Pressure 151/77 H Pulse Oximetry 95 Oxygen Delivery 07/10/23 20:00 07/10/23 20:00 07/11/23 00:00 Temperature Pulse Rate 66 70 62 Respiratory Rate 18 Blood Pressure Pulse Oximetry 95 Oxygen Delivery Room Air 07/11/23 04:00 07/11/23 05:49 07/11/23 09:46 Temperature 97.9 F Pulse Rate 55 L 60 74 Respiratory Rate 16 Blood Pressure 158/86 H Pulse Oximetry 97 Oxygen Delivery 07/11/23 08:00 07/11/23 10:15 07/11/23 14:00 Temperature 97.6 F Pulse Rate 64 Respiratory Rate 16 Blood Pressure 152/75 H Pulse Oximetry 96 Oxygen Delivery Room Air Room Air Intake/Output Intake/Output: Intake & Output 07/08/23 07/09/23 07/10/23 07/11/23 23:59 23:59 23:59 23:59 Intake Total 3840 3210 1920 3630 Output Total 4000 1550 1300 2000 Balance -160 9205 923 1455 Meds/Results Medications: Active Medications Generic Name Dose Route Start Last Admin Trade Name Freq PRN Reason Stop Dose Admin Dextrose 12.5 gm 07/06/23 05:04 Dextrose 50% 25 Gm/50 Ml Syringe IV PUSH PRN PRN Hypoglycemia Protocol Enoxaparin Sodium 40 mg 07/06/23 09:00 07/11/23 09:45 Enoxaparin 4
--- NOTE | 2023-07-11 16:05 | PC.NURSE ---
Spoke with Dr. David regarding biopsy results. He agrees with plan for peg tube. Will like to have pt. make an appt for next week hopefully.
[2023-07-11 17:09] LABS: Glucose Point of Care 216 mg/dl (65-105)
--- NOTE | 2023-07-11 18:52 | PC.NURSE ---
Pt had a run of Vtach. made aware. orders for magnesium and potassium labs.
[2023-07-11] MEDS: cefTRIAXone 2 GM/NS 100 ML 2 GM/100 ML BAG IVPB (20:11)
[2023-07-11 20:34] LABS: Magnesium 1.8 mg/dL (1.6-2.3); Potassium 3.1 mmol/L (3.4-5.0)
[2023-07-12] VITALS (14 sets, daily range): BP systolic 104–176; BP diastolic 64–85; PULSE 61–95; RESP 15–23; TEMP 36.1–36.7; O2SAT 95–100
[2023-07-12] MEDS: INSULIN ASPART (*BKC) 100 UNITS/ML SUB-Q ×2 (00:14→05:22)
[2023-07-12 00:16] LABS: Glucose Point of Care 224 mg/dl (65-105)
[2023-07-12] MEDS: SODIUM CHLORIDE 0.9% IV 1,000 ML 100 ML IV CONT (02:56)
[2023-07-12] MEDS: metroNIDAZOLE 500 MG/ISO 100ML 500 MG/100 ML BAG 100 MG IVPB ×3 (05:10→21:51)
[2023-07-12 05:50] LABS: Anion Gap 3 mmol/L (8-16); Blood Urea Nitrogen 6 mg/dL (9-20); Calcium 8.1 mg/dL (8.4-10.2); Carbon Dioxide 28 mmol/L (22-30); Chloride 103 mmol/L (98-107); Estimated CRCL calculation 135 ml/min; Estimated Glomerular Filt Rate > 60; Glucose 213 mg/dL (65-110); Phosphorus 3.3 mg/dL (2.5-4.5); Potassium 2.8 mmol/L (3.4-5.0); Sodium 134 mmol/L (137-145)
[2023-07-12 05:51] LABS: Glucose Point of Care 219 mg/dl (65-105)
[2023-07-12] MEDS: POTASSIUM CHLORIDE INJ 40 MEQ in SODIUM CHLORIDE 0.9% IV 500 ML 130 MEQ IVPB (06:26)
[2023-07-12] MEDS: NICOTINE (*PBKC) 21 MG PATCH 1 PATCH TRANSDERM (08:46)
[2023-07-12] MEDS: PANTOPRAZOLE SODIUM IV 40 MG VIAL IV PUSH (08:47)
--- NOTE | 2023-07-12 10:37 | PCOTNOTE ---
Patient refused treatment this session. Patient stated he would try tomorrow. Patient reported that he is in pain and that he is getting a peg tub placed today.
[2023-07-12 10:40] LABS: Potassium 3.7 mmol/L (3.4-5.0)
[2023-07-12 10:58] LABS: Glucose Point of Care 230 mg/dl (65-105)
--- NOTE | 2023-07-12 11:00 | PC.NURSE ---
Patient off of unit to GI lab
[2023-07-12] MEDS: LACTATED RINGERS 1,000 ML 150 ML IV CONT (11:04)
[2023-07-12] MEDS: ceFAZolin 1 GM/NS 50 ML 1 GM/50 ML BAG IVPB (11:05)
--- NOTE | 2023-07-12 11:21 | PCNFU ---
Addendum entered by Nelly Harrington, RD, LDN 07/12/23 14:23: Bolus feeding recommendations: 360 ml QID providing 1728 kcals/86 gms protein/1159 ml water. Flush 100 ml with feedings. Tube feedings meeting 91% kcal needs at 30 kcal/kg and 100% protein needs at 1.0-1.2 gm/kg. Original Note: Nutrition Follow-Up Complete: Severe Malnutrition as related to inadequate protein-energy intake with increased protein-energy needs in setting of chronic disease as evidenced by EER less than 75% of needs and significant weight loss of 18% (30ibs) in 3 months. Goal: Meet estimated nutritional needs patient is progressing towards goal. We will continue current goal. Pt current nutrition is TPN at 50 ml/hr. Nutrition recommendation: Glucerna 1.2 goal rate at 70 ml/hr. Last recorded weight is 63.1 kg. No new weight reported. Recommend new weight. Bowel Motility:No BM reported. Labs Reviewed:Glu 213, BUN 6, Cr 0.4,NA 134, K 2.8 Meds Noted:Clinimix E at 50 ml/hr with 250 ml of 20% Lipid Emulsion. Skin: WNL Additional Notes: Patient is NPO for PEG placement today. Recommend tube feedings of Glucerna 1.2 at 20 ml/hr advance by 10 ml q 4 hours to goal rate of 70 ml/hr. Flush at this time 50 ml q 4 hours. TPN can be discontinued as patient tolerates tube feedings. Will monitor weight, labs, skin, tube feeding tolerance every Saturday and Saturday.
[2023-07-12 12:25] LABS: Glucose Point of Care 226 mg/dl (65-105)
--- NOTE | 2023-07-12 13:57 | PM.IMPN ---
Progress Note: A&P Assessment and Plan (1) Sepsis: Code(s): A41.9 - Sepsis, unspecified organism Status: Acute Assessment and Plan: Resolved, continue antibiotics. (2) Colitis: Code(s): K52.9 - Noninfective gastroenteritis and colitis, unspecified Status: Acute Assessment and Plan: ? Significance of colitis Continue antibiotics (3) Lactic acidosis: Code(s): E87.20 - Acidosis, unspecified Status: Acute Assessment and Plan: Improved (4) Diabetes type 2, controlled: Qualifiers: Diabetes mellitus customs compliance manager insulin use: without fpc use Diabetes mellitus complication status: with hyperglycemia Qualified Code(s): E11.65 - Type 2 diabetes mellitus with hyperglycemia Code(s): E11.9 - Type 2 diabetes mellitus without complications Status: Acute Assessment and Plan: Monitor (5) Altered mental status: Code(s): R41.82 - Altered mental status, unspecified Status: Acute Assessment and Plan: Improved (6) Dysphagia: Code(s): R13.10 - Dysphagia, unspecified Status: Acute Assessment and Plan: Esophagram noted. Await bx results - likely esophageal ca oncology consult ct brain, chest, abd, pelvis (7) Tobacco abuse: Code(s): Z72.0 - Tobacco use Status: Acute Assessment and Plan: Patient will need to be educated about the benefits of smoking cessation. (8) Lung mass: Code(s): R91.8 - Other nonspecific abnormal finding of lung field Status: Acute Assessment and Plan: Hematology-Oncology aware. Will await biopsy results of the esophagus. (9) Malnutrition: Code(s): E46 - Unspecified protein-calorie malnutrition Status: Acute Assessment and Plan: Severe, patient considering PEG tube. Will likely eventually need PEG tube. PICC line inserted today, will start TPN as he is not able to tolerate any oral intake Subjective Date/time seen: 07/12/23 13:57 Interval history: No new complaints Exam Narrative: AF 97.5 154/83 62 16 92% ra Gen - NARD lying left side down Chest - CTA bilaterally, nml RR CV - RRR S1/S2. Tele showing mostly paced rhythm Abd - soft, no apparent tenderness (refuses to lay flat) Ext - No pedal edema Neuro - Alert. Oriented x 2 (did not know year or location) Psych - hard to assess Skin - Warm and dry Objective Data Vital Signs Vital Signs: Vital Signs - 24 hr 07/11/23 14:00 07/11/23 16:00 07/11/23 19:48 Temperature 97.6 F 97.1 F L Pulse Rate 64 77 79 Respiratory Rate 16 16 Blood Pressure 152/75 H 147/74 H Pulse Oximetry 96 96 Oxygen Delivery 07/11/23 20:12 07/11/23 20:00 07/11/23 20:00 Temperature Pulse Rate 68 71 68 Respiratory Rate 16 Blood Pressure Pulse Oximetry 96 Oxygen Delivery Room Air 07/12/23 00:00 07/12/23 04:00 07/12/23 05:16 Temperature 97 F L Pulse Rate 61 70 77 Respiratory Rate 16 Blood Pressure 151/75 H Pulse Oximetry 95 Oxygen Delivery 07/12/23 11:01 07/12/23 08:47 07/12/23 08:47 Temperature 98.1 F Pulse Rate 82 78 Respiratory Rate 20 Blood Pressure 170/84 H Pulse Oximetry 98 Oxygen Delivery Room Air Room Air 07/12/23 12:09 07/12/23 12:19 07/12/23 12:29 Temperature Pulse Rate 93 91 92 Respiratory Rate 15 19 23 H Blood Pressure 108/64 124/76 104/67 Pulse Oximetry 100 99 99 Oxygen Delivery Room Air Room Air Room Air Intake/Output Intake/Output: Intake & Output 07/09/23 07/10/23 07/11/23 07/12/23 23:59 23:59 23:59 23:59 Intake Total 3210 2440 5450 800 Output Total 1550 1300 3350 3300 Balance 1660 1140 2100 -2500 Meds/Results Medications: Active Medications Generic Name Dose Route Start Last Admin Trade Name Freq PRN Reason Stop Dose Admin Hydrocodone Bitart/Acetaminophen 1 tab 07/12/23 13:45 Hydrocodone/Acetaminophen (*Crx) 5-325 Mg Tablet PO Q6H P
--- NOTE | 2023-07-12 13:59 | PM.IMPN ---
Progress Note: A&P Assessment and Plan (1) Sepsis: Code(s): A41.9 - Sepsis, unspecified organism Status: Acute Assessment and Plan: Resolved, continue antibiotics. (2) Colitis: Code(s): K52.9 - Noninfective gastroenteritis and colitis, unspecified Status: Acute Assessment and Plan: ? Significance of colitis Continue antibiotics (3) Lactic acidosis: Code(s): E87.20 - Acidosis, unspecified Status: Acute Assessment and Plan: Improved (4) Diabetes type 2, controlled: Qualifiers: Diabetes mellitus termite helper insulin use: without chcf use Diabetes mellitus complication status: with hyperglycemia Qualified Code(s): E11.65 - Type 2 diabetes mellitus with hyperglycemia Code(s): E11.9 - Type 2 diabetes mellitus without complications Status: Acute Assessment and Plan: Monitor (5) Altered mental status: Code(s): R41.82 - Altered mental status, unspecified Status: Acute Assessment and Plan: Improved (6) Dysphagia: Code(s): R13.10 - Dysphagia, unspecified Status: Acute Assessment and Plan: Esophagram noted. Await bx results - oncology following ct brain, chest, abd, pelvis (7) Tobacco abuse: Code(s): Z72.0 - Tobacco use Status: Acute Assessment and Plan: Patient will need to be educated about the benefits of smoking cessation. (8) Lung mass: Code(s): R91.8 - Other nonspecific abnormal finding of lung field Status: Acute Assessment and Plan: Hematology-Oncology aware. Will await biopsy results of the esophagus. (9) Malnutrition: Code(s): E46 - Unspecified protein-calorie malnutrition Status: Acute Assessment and Plan: Severe, patient considering PEG tube. Will likely eventually need PEG tube. PICC line inserted today, will start TPN as he is not able to tolerate any oral intake Subjective Date/time seen: 07/12/23 13:59 Interval history: No new complaints PEG today Exam Narrative: AF 97.5 154/83 62 16 92% ra Gen - NARD lying left side down Chest - CTA bilaterally, nml RR CV - RRR S1/S2. Tele showing mostly paced rhythm Abd - soft, no apparent tenderness (refuses to lay flat) Ext - No pedal edema Neuro - Alert. Oriented x 2 (did not know year or location) Psych - hard to assess Skin - Warm and dry Objective Data Vital Signs Vital Signs: Vital Signs - 24 hr 07/11/23 14:00 07/11/23 16:00 07/11/23 19:48 Temperature 97.6 F 97.1 F L Pulse Rate 64 77 79 Respiratory Rate 16 16 Blood Pressure 152/75 H 147/74 H Pulse Oximetry 96 96 Oxygen Delivery 07/11/23 20:12 07/11/23 20:00 07/11/23 20:00 Temperature Pulse Rate 68 71 68 Respiratory Rate 16 Blood Pressure Pulse Oximetry 96 Oxygen Delivery Room Air 07/12/23 00:00 07/12/23 04:00 07/12/23 05:16 Temperature 97 F L Pulse Rate 61 70 77 Respiratory Rate 16 Blood Pressure 151/75 H Pulse Oximetry 95 Oxygen Delivery 07/12/23 11:01 07/12/23 08:47 07/12/23 08:47 Temperature 98.1 F Pulse Rate 82 78 Respiratory Rate 20 Blood Pressure 170/84 H Pulse Oximetry 98 Oxygen Delivery Room Air Room Air 07/12/23 12:09 07/12/23 12:19 07/12/23 12:29 Temperature Pulse Rate 93 91 92 Respiratory Rate 15 19 23 H Blood Pressure 108/64 124/76 104/67 Pulse Oximetry 100 99 99 Oxygen Delivery Room Air Room Air Room Air Intake/Output Intake/Output: Intake & Output 07/09/23 07/10/23 07/11/23 07/12/23 23:59 23:59 23:59 23:59 Intake Total 3210 2440 5450 800 Output Total 1550 1300 3350 3300 Balance 1660 1140 2100 -2500 Meds/Results Medications: Active Medications Generic Name Dose Route Start Last Admin Trade Name Freq PRN Reason Stop Dose Admin Hydrocodone Bitart/Acetaminophen 1 tab 07/12/23 13:45 Hydrocodone/Acetaminophen (*Crx) 5-325 Mg Tablet PO Q6H PRN
[2023-07-12] MEDS: HYDROcodone/acetaminophen (*CRX) 5-325 MG TABLET 1 TAB PO ×2 (14:00→21:50)
[2023-07-12] MEDS: CENTRAL LINE FLUSH 10 ML IV PUSH ×2 (14:02→21:52)
[2023-07-12] MEDS: POTASSIUM CHLORIDE 20 MEQ PACKET (FOR LIQUID) 40 MEQ FEED TUBE (18:26)
[2023-07-12 18:38] LABS: Anion Gap 7 mmol/L (8-16); Blood Urea Nitrogen 7 mg/dL (9-20); Calcium 8.4 mg/dL (8.4-10.2); Carbon Dioxide 26 mmol/L (22-30); Chloride 104 mmol/L (98-107); Estimated CRCL calculation 135 ml/min; Estimated Glomerular Filt Rate > 60; Glucose 173 mg/dL (65-110); Potassium 3.1 mmol/L (3.4-5.0); Sodium 137 mmol/L (137-145)
[2023-07-12] MEDS: METOPROLOL TARTRATE 12.5 MG TABLET PO (21:49)
[2023-07-12] MEDS: cefTRIAXone 2 GM/NS 100 ML 2 GM/100 ML BAG IVPB (21:51)
[2023-07-13] VITALS (7 sets, daily range): BP systolic 123; BP diastolic 74; PULSE 66–91; RESP 16; TEMP 36.6; O2SAT 94
[2023-07-13 00:19] LABS: Glucose Point of Care 171 mg/dl (65-105)
[2023-07-13] MEDS: INSULIN ASPART (*BKC) 100 UNITS/ML SUB-Q ×2 (05:50→12:58)
[2023-07-13] MEDS: CENTRAL LINE FLUSH 20 ML IV PUSH (05:51)
[2023-07-13] MEDS: CENTRAL LINE FLUSH 10 ML IV PUSH ×2 (05:51→13:04)
[2023-07-13 05:55] LABS: Glucose Point of Care 217 mg/dl (65-105)
[2023-07-13 06:10] LABS: Anion Gap 4 mmol/L (8-16); Blood Urea Nitrogen 9 mg/dL (9-20); Calcium 8.8 mg/dL (8.4-10.2); Carbon Dioxide 28 mmol/L (22-30); Chloride 104 mmol/L (98-107); Estimated CRCL calculation 108 ml/min; Estimated Glomerular Filt Rate > 60; Glucose 193 mg/dL (65-110); Phosphorus 4.3 mg/dL (2.5-4.5); Potassium 3.3 mmol/L (3.4-5.0); Sodium 136 mmol/L (137-145)
[2023-07-13] MEDS: METOPROLOL TARTRATE 12.5 MG TABLET PO (08:48)
[2023-07-13] MEDS: NICOTINE (*PBKC) 21 MG PATCH 1 PATCH TRANSDERM (08:49)
[2023-07-13] MEDS: ENOXAPARIN 40 MG/0.4 ML SYRINGE SUB-Q (08:49)
[2023-07-13] MEDS: PANTOPRAZOLE SODIUM IV 40 MG VIAL IV PUSH (08:50)
[2023-07-13] MEDS: HYDROcodone/acetaminophen (*CRX) 5-325 MG TABLET 1 TAB PO ×2 (10:05→16:31)
[2023-07-13 11:39] LABS: Triglycerides 211 mg/dL (<150)
[2023-07-13 12:12] LABS: Glucose Point of Care 230 mg/dl (65-105)
--- NOTE | 2023-07-13 14:53 | PM.DS ---
DS: Admitting Diagnosis Discharge Date July 13, 2023 Admitting Diagnosis Esophageal mass and likely lung cancer Failure to thrive DS: Discharge Diagnosis Discharge Diagnosis (1) Sepsis: Code(s): A41.9 - Sepsis, unspecified organism Status: Acute Assessment and Plan: Resolved, continue antibiotics. (2) Colitis: Code(s): K52.9 - Noninfective gastroenteritis and colitis, unspecified Status: Acute Assessment and Plan: ? Significance of colitis Continue antibiotics (3) Lactic acidosis: Code(s): E87.20 - Acidosis, unspecified Status: Acute Assessment and Plan: Improved (4) Diabetes type 2, controlled: Qualifiers: Diabetes mellitus fdc insulin use: without fdc use Diabetes mellitus complication status: with hyperglycemia Qualified Code(s): E11.65 - Type 2 diabetes mellitus with hyperglycemia Code(s): E11.9 - Type 2 diabetes mellitus without complications Status: Acute Assessment and Plan: Monitor (5) Altered mental status: Code(s): R41.82 - Altered mental status, unspecified Status: Acute Assessment and Plan: Improved (6) Dysphagia: Code(s): R13.10 - Dysphagia, unspecified Status: Acute Assessment and Plan: Esophagram noted. Await bx results - oncology following ct brain, chest, abd, pelvis (7) Tobacco abuse: Code(s): Z72.0 - Tobacco use Status: Acute Assessment and Plan: Patient will need to be educated about the benefits of smoking cessation. (8) Lung mass: Code(s): R91.8 - Other nonspecific abnormal finding of lung field Status: Acute Assessment and Plan: Hematology-Oncology aware. Will await biopsy results of the esophagus. (9) Malnutrition: Code(s): E46 - Unspecified protein-calorie malnutrition Status: Acute Assessment and Plan: Severe, patient considering PEG tube. Will likely eventually need PEG tube. PICC line inserted today, will start TPN as he is not able to tolerate any oral intake Plan Bolus feeding recommendations: 360 ml QID providing 1728 kcals/86 gms protein/1159 ml water. Flush 100 ml with feedings DS: Summary Hospital Course Hospital Course: Patient was admitted for altered mental status and failure to thrive. He was evaluated and admitted for colitis. Ultimately I do not think that was the main issue he was not feeling well failing to thrive. He was treated for colitis and did well. After further discussion with the and patient he was having significant trouble with dysphagia and swallowing issues. He lost 30+ lb over the last 2 months or so. Evaluation revealed esophageal mass which she underwent biopsy for which revealed possible esophageal versus lung cancer. They had this in this specimen off for special stains. Nonetheless I ordered a CT scan of his chest abdomen pelvis and he had a 2.5cm mass in his left lower lobe. This is likely bronchogenic carcinoma. Patient has a PEG tube now for tube feeds. He can be discharged. He will need follow-up with GI and follow-up with Oncology. He will also need follow-up his primary care physician. Time Spent with Patient Time attestation: Total time spent providing and/or coordinating discharge services: Exam Narrative: AF 97.5 154/83 62 16 92% ra Gen - NARD lying left side down Chest - CTA bilaterally, nml RR CV - RRR S1/S2. Tele showing mostly paced rhythm Abd - soft, no apparent tenderness (refuses to lay flat) Ext - No pedal edema Neuro - Alert. Oriented x 2 (did not know year or location) Psych - hard to assess Skin - Warm and dry DS: Data Data Completed and Pending Completed studies during hospitalization: Pending at discharge 07/08/23 14:20 Surgical [PTH] Routine Pending studies at discharge: Pending at discharge 07/12/23 11:48 Surgical [PTH] Routine Labs on day of di
--- NOTE | 2023-07-13 15:12 | WPDGIPROGNO ---
Progress Note: A&P Assessment and Plan (1) Esophageal mass: Code(s): K22.89 - Other specified disease of esophagus Status: Acute Assessment and Plan: bx showed malignancy (differential lung vs esophageal) he was unable to eat and placed g-tube yesterday successfully- tolerating without problem home soon he will need follow-up with oncology to talk about treatment options (2) Malnutrition: Code(s): E46 - Unspecified protein-calorie malnutrition Status: Acute Assessment and Plan: partial esophageal obstruction this was treated with g-tube (3) Dysphagia: Code(s): R13.10 - Dysphagia, unspecified Status: Acute Assessment and Plan: weight loss and malnutrition tube feeding using g-tube (4) Weight loss, unintentional: Code(s): R63.4 - Abnormal weight loss Status: Acute (5) Lung mass: Code(s): R91.8 - Other nonspecific abnormal finding of lung field Status: Acute Assessment and Plan: also he has new mass in lung oncology aware and will follow-up as outpatient soon (6) Tobacco abuse: Code(s): Z72.0 - Tobacco use Status: Acute Subjective Date/time seen: 07/13/23 15:12 Interval history: yesterday placed g-tube successfully and obtained even more biopsies of esophageal mass he now is tolerating tube feeding he is hoping to go home later today Review of Systems Review of Systems: All systems reviewed & are unremarkable except as noted in HPI and below Exam Const: General: cooperative and awake Orientation/consciousness: patient oriented x3 Other: thin HENMT: Head: normal to inspection Ears: hearing grossly normal bilaterally Eyes: General: appearance normal, both eyes and all related structures Neck: Neck: normal visual inspection Chest: Chest palpation & inspection: normal inspection of the chest Resp: Auscultation: no crackles and rhonchi Cardio: Rate: regular rate Rhythm: regular rhythm GI: Inspection: normal to inspection and scaphoid GI Palp: Yes Soft to palpation and No Guarding due to palpation present (GI) Auscultation: normal bowel sounds Other: g-tube in place, tolerating tube feeding Skin: General skin exam: normal color Neuro: General: patient oriented x3 Speech: normal speech Motor exam (neuro): 5/5 motor strength present throughout Extrem: General: normal to inspection Psych: Mental Status: mental status grossly normal Objective Data Vital Signs Vital Signs: Vital Signs - 24 hr 07/12/23 16:00 07/12/23 21:47 07/12/23 21:49 Temperature 97.7 F Pulse Rate 86 90 90 Respiratory Rate 16 Blood Pressure 155/78 H Pulse Oximetry 95 Oxygen Delivery 07/12/23 22:33 07/12/23 20:00 07/12/23 20:00 Temperature Pulse Rate 94 Respiratory Rate Blood Pressure Pulse Oximetry 95 Oxygen Delivery Room Air Room Air 07/13/23 00:39 07/13/23 05:38 07/13/23 08:27 Temperature 97.8 F Pulse Rate 66 83 Respiratory Rate 16 Blood Pressure 123/74 Pulse Oximetry 94 94 Oxygen Delivery Room Air 07/13/23 08:48 07/13/23 08:50 07/13/23 08:00 Temperature Pulse Rate 81 81 69 Respiratory Rate 16 Blood Pressure Pulse Oximetry 94 Oxygen Delivery Room Air 07/13/23 12:00 Temperature Pulse Rate 91 Respiratory Rate Blood Pressure Pulse Oximetry Oxygen Delivery Intake/Output Intake/Output: Intake & Output 07/10/23 07/11/23 07/12/23 07/13/23 23:59 23:59 23:59 23:59 Intake Total 2440 5450 1350 300 Output Total 1300 3350 3300 300 Balance 1140 2100 -1950 0 Meds/Results Medications: Active Medications Generic Name Dose Route Start Last Admin Trade Name Freq PRN Reason Stop Dose Admin Hydrocodone Bitart/Acetaminophen 1 tab 07/12/23 13:45 07/13/23 10:05 Hydrocodone/Acetaminophen (*Crx) 5-325 Mg Tablet PO 1 tab Q6H PRN Administration Pain Rated 4-6 Dextrose 12.5 gm 07/06/23 05:04 Dextr
--- NOTE | 2023-07-13 16:29 | WPDANESPN ---
Anes - Prog Note Post-Op Date/Time: 07/13/23 16:29 Cardiovascular status: normal Respiratory status: normal Airway patency: baseline Mental status: baseline Post-Op hydration status: normal Vital Signs: Last Vital Signs Temp 97.8 F 07/13/23 05:38 Pulse 91 07/13/23 12:00 Resp 16 07/13/23 08:50 BP 123/74 07/13/23 05:38 Pulse Ox 94 07/13/23 08:50 O2 Del Method Room Air 07/13/23 08:50 O2 Flow Rate 4 07/05/23 22:53 Pain Score (VAS): 0 I/O: Intake & Output 07/13/23 07/13/23 07/13/23 07:59 15:59 23:59 Intake Total 300 Output Total 300 Balance 0 Laboratory Tests 07/11/23 05:34 07/13/23 05:43 07/12/23 07/13/23 07/13/23 18:08 00:09 05:43 Sodium 137 136 L Potassium 3.1 L 3.3 L Chloride 104 104 Carbon Dioxide 26 28 Anion Gap 7 L 4 L BUN 7 L 9 Creatinine 0.40 L 0.50 L Estim Creat Clear Calc 135 108 Estimated GFR > 60 > 60 Glucose 173 H 193 H POC Capillary Glucose 171 H Calcium 8.4 8.8 Phosphorus 4.3 Triglycerides 211 H 07/13/23 07/13/23 05:47 11:56 Sodium Potassium Chloride Carbon Dioxide Anion Gap BUN Creatinine Estim Creat Clear Calc Estimated GFR Glucose POC Capillary Glucose 217 H 230 H Calcium Phosphorus Triglycerides Post-procedural complaints: none Patient Feedback: Patient satisfied with anesthetic care.
== END 2023-07-13 17:47 | disposition home health service (06) | DRG 843 ==
LOC: ANHED 23:42 → ANH3MED 07-06 01:09
PROVIDERS: Anesthesiology; Internal Medicine; Internal Medicine Gastroenterology; Admitting Provider Student in an Organized Health Care Education/Training Program; Emergency Provider Emergency Medicine; PCP Family Medicine; Visit Provider Chiropractor
PROC: 0DJ08ZZ Inspection of Upper Intestinal Tract, Via Natural or Artificial Opening Endoscopic (ICD-10-PCS; CPT 43235; principal; 2023-07-08 14:00)
PROC: 0DH63UZ Insertion of Feeding Device into Stomach, Percutaneous Approach (ICD-10-PCS; CPT 43246; 2023-07-12 13:30)
DX: C80.1 Malignant (primary) neoplasm, unspecified (principal); A41.9 Sepsis, unspecified organism; E43 Unspecified severe protein-calorie malnutrition; K21.01 Gastro-esophageal reflux disease with esophagitis, with bleeding; K22.89 Other specified disease of esophagus; K52.9 Noninfective gastroenteritis and colitis, unspecified; I11.0 Hypertensive heart disease with heart failure; I50.9 Heart failure, unspecified; E11.9 Type 2 diabetes mellitus without complications; R91.8 Other nonspecific abnormal finding of lung field; R63.4 Abnormal weight loss; F17.210 Nicotine dependence, cigarettes, uncomplicated; Z20.822 Contact with and (suspected) exposure to COVID-19; Z95.0 Presence of cardiac pacemaker; Z91.148 Patient's other noncompliance with medication regimen for other reason; Z68.20 Body mass index [BMI] 20.0-20.9, adult
CPT/HCPCS: 36415; 36569; 36600; 43246; 70450; 71045; 71260; 74177; 74220; 80048; 80053; 80069; 80202; 80307; 81001; 82375; 82533; 82550; 82607; 82746; 82805; 82948; 83036; 83050; 83605; 83735; 84100; 84132; 84443; 84466; 84478; 84484; 85025; 85380; 85610; 85730; 87040; 87637; 88305; 88342; 92610; 92611; 93005; 97110; 97161; 97165; 97530; 99285; A9270; C1751; C9113; J0690; J0692; J0696; J1200; J1650; J1815; J1836; J2001; J2185; J2405; J2704; J2765; J3370; J3475; J3480; J7030; J7040; J7120; Q9967

== ENCOUNTER 2023-07-25 14:46 | Outpatient (CLI) | payer MEDICARE, SELFPAY ==
[2023-07-25 15:07] LABS: Kit Draw Collected
== END 2023-07-25 14:47 | disposition home or self-care (01) ==
LOC: ANHLAB 14:48
PROVIDERS: PCP Family Medicine; Visit Provider Internal Medicine Hematology & Oncology
DX: R91.8 Other nonspecific abnormal finding of lung field (principal); C15.3 Malignant neoplasm of upper third of esophagus
CPT/HCPCS: 36415

== ENCOUNTER 2023-08-02 10:31 | Outpatient (NON) | payer MEDICARE, SELFPAY ==
[2023-08-02 11:18] LABS: Hematocrit 43.1 % (42.0-52.0); Hemoglobin 13.5 g/dL (14.0-18.0); Mean Corpuscular HGB Conc 31.3 g/dl (32-36); Mean Corpuscular Hemoglobin 26.8 pg (26-34); Mean Corpuscular Volume 85.7 fl (80-100); Mean Platelet Volume 11.4 fl (7.4-10.4); Platelet Count Result 402 k/mm3 (150-375); Red Blood Count 5.03 M/mm3 (4.6-6.20); Red Cell Distribution Width 15.6 % (11.5-14.5); White Blood Count 11.5 K/mm3 (4.5-10.0)
[2023-08-02 11:36] LABS: Alanine Aminotransferase 18 U/L (6-50); Albumin Level 4.4 g/dL (3.5-5.1); Alkaline Phosphatase 67 U/L (38-126); Anion Gap 6 mmol/L (8-16); Aspartate Amino Transferase 28 U/L (17-59); Bilirubin,Total 0.5 mg/dL (0.2-1.3); Blood Urea Nitrogen 21 mg/dL (9-20); Calcium 9.5 mg/dL (8.4-10.2); Carbon Dioxide 33 mmol/L (22-30); Chloride 95 mmol/L (98-107); Estimated Glomerular Filt Rate > 60; Glucose 296 mg/dL (65-110); Potassium 5.3 mmol/L (3.4-5.0); Sodium 134 mmol/L (137-145)
[2023-08-02 11:43] LABS: Prealbumin 24.2 mg/dL (17.6-36.0)
== END 2023-08-02 10:32 | disposition home or self-care (01) ==
PROVIDERS: PCP Family Medicine; Visit Provider Family Medicine
DX: E44.0 Moderate protein-calorie malnutrition (principal)
CPT/HCPCS: 80053; 84134; 85027

== ENCOUNTER 2023-08-14 01:11 | Day surgery (SDC) | payer MEDICARE, SELFPAY ==
[2023-08-12 11:42] VITALS: BMI 19.3
--- NOTE | 2023-08-12 12:10 | PC.NURSE ---
Report to the Outpatient Waiting Room, entrance under the green pavilion located off [facility], at time 6:00 on date 08/14/23. Planned Procedure Time: 7:30. Time changes happen often and if your time is changed the preop area will call you the afternoon before. - You and your visitor will be asked to self-screen and do not enter if you have any COVID symptoms. - A mask is optional within the hospital at this time. Patients may have clear liquids (water, carbonated beverages, clear teas, apple juice) until 3 hours prior to surgery (4:30) with a maximum of 20 ounces. - No food from midnight until time of surgery Take the following medications with a SIP of water the morning of surgery: METOPROLOL, PAIN PILL IF NEEDED DO NOT STOP ANY OF YOUR OTHER PRESCRIPTION MEDICATIONS PRIOR TO SURGERY ?EXCEPT THE FOLLOWING Medications to discontinue per physician: N/A Date to take last dose: N/A Please no make-up, nail icelandic, hairspray, perfume, deodorant, or body powder the day of surgery. No jewelry (including any body piercings) or valuables the day of surgery, leave them at home. Please take a shower or bath the night before, or the morning of, surgery with an antibacterial soap. Wear comfortable, loose fitting clothing. - Jewelry must be removed prior to entering the operating room. Rings and piercings that are not removed may be cut off. - The hospital will not accept responsibility for valuables. - Please leave all valuables, including medications, at home the day of surgery. If you are going home after surgery, a licensed dedicated regional driver must drive you home. - NO public transportation without another adult if you receive anesthesia. - We recommend that an adult stay with you for 24 hours following discharge. - We also recommend that you do not drive, make important decision, drink alcoholic beverages, or take any drugs that were not prescribed by your health care provider for at least 24 hours after your discharge time. Follow any additional instructions given to you from your surgeon. If you or anyone in your household have experienced Covid symptoms in the past week, please notify your surgeon or the nurse liaison at the phone number below for possible testing. WRITTEN instructions given to SPOUSE - MARY and asked if any additional questions and then verbalized understanding. Patient advised to call surgeon office or pre surgery nurse liaison [phone] if any additional questions.
--- NOTE | 2023-08-13 10:14 | PM.SD2 ---
Same Day Admit/Disch: HPI History of Present Illness Chief complaint: esophageal CA Narrative: Raoul Bacon Jr. is a 63 year old male who is a type 2 diabetic and long-term smoker. He presented with weight loss and dysphagia. 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 Chest CT scan also showed a 2.4 cm cavitary lesion consistent with carcinoma in the superior segment of the left upper lobe. Patient had a right sided PICC line placed 07/10/2023. He has a left-sided dual-chamber pacemaker in place. He also has a gastrostomy tube in which most of his nutrition is given. He has requested to have a Port-A-Cath placed for chemotherapy administration and is taken to surgery now for this purpose. [facility] Past Medical History Medical History (Updated 08/14/23 @ 09:07 by Art Booth MD) CHF (congestive heart failure) CVA (cerebral vascular accident) Diabetes type 2, controlled Esophageal cancer Esophageal mass Furuncle of back, except buttock Heart failure ICD (implantable cardioverter-defibrillator) in place Uses feeding tube Surgical History Surgical History History of permanent cardiac pacemaker placement Family History Family History Father Acute myocardial infarction Blood clot in vein Mother Dementia Sibling Diabetes mellitus Social History Social History Smoking packs per day: 1 Smoking cigarettes per day: 20.0 Years smoked: 48 Smoking pack-years: 48.00 Smoking status: Current every day smoker Tobacco type: cigarettes Second hand tobacco smoke exposure: Yes Alcohol intake: never Substance use: current Substance use type: marijuana Lack of Transportation: No Lack of Food: Never True Current Housing: I Have Housing Concerned About Future Housing: No Difficulty Paying Gas/Electric Bills: No Difficulty Paying for Meds: No Currently Unemployed: No Education: High School Diploma/GED Difficulty w/ Childcare or Family Care: No Living arrangements: with family Occupation/Education: retired 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 Gender identity (if verbalized by the patient): Male Spiritual care concerns: No Same Day Admit/Disch: Med Pre-admit Medications Home Medications Medication Instructions Recorded Confirmed Type metoprolol succinate 50 mg 50 mg PO DAILY 07/06/23 08/14/23 History tablet,extended release 24 hr hydrocodone 5 mg-acetaminophen 325 1 tablet PO Q8H PRN pain #60 tabs 07/14/23 08/14/23 Rx mg tablet aspirin 81 mg chewable tablet 81 mg feeding tube DAILY 08/01/23 08/14/23 History nut.tx.gluc.intol,lac-free,soy 1 ea feeding tube DAILY 08/01/23 08/12/23 History (Glucerna Therapeutic Nutrition oral liquid) sitagliptin phosphate 50 1 tablet PO DAILY #60 tabs 08/01/23 08/14/23 Rx mg-metformin 1,000 mg tablet (Opal) Review of Systems Review of Systems All systems reviewed & are unremarkable except as noted in HPI and below (HPI and those items noted below) Constitutional Constitutional: Reports as per HPI, Denies chills, Denies fever(s) and Reports weight loss Cardiovascular Cardiovascular: Denies chest pain, Denies diaphoresis, Denies leg edema, Denies lightheadedness and Denies paroxysmal nocturnal dyspnea Respiratory Respiratory: Denies chest congestion, Reports cough and Denies hemoptysis Gastrointestinal Gastrointestinal: Reports as per HPI Comments: Dysphagia, weight loss Integumentary/Breasts Skin/Breast: Denies lesions and Denies rash Exam Const: General: comfortable, no acute distress, alert and awake HENMT: Head: normocephalic and atraumatic Mouth: Yes Normal oral and palatal mucosa present Eyes: Conjunctivae: conjunctivae normal Pu
--- NOTE | 2023-08-13 20:36 | WPDANESEPPF ---
Anes - Initial Pre Proc Eval Procedure: Operation Date: 08/14/23 07:30 Proposed Procedures p Insertion Hemant Cath - Art Booth MD Date/Time: 08/13/23 20:36 Surgeon: Art Booth MD Pre Op Diagnosis: esophageal CA Patient Data Age: 63 Gender: M Height: 1.7 m Weight: 55.8 kg Allergies Allergy/AdvReac Type Severity Reaction Status Date / Time Penicillins Allergy Unknown Rash Verified 08/14/23 06:45 Home Medications Medication Instructions Recorded Confirmed Type metoprolol succinate 50 mg 50 mg PO DAILY 07/06/23 08/14/23 History tablet,extended release 24 hr hydrocodone 5 mg-acetaminophen 325 1 tablet PO Q8H PRN pain #60 tabs 07/14/23 08/14/23 Rx mg tablet aspirin 81 mg chewable tablet 81 mg feeding tube DAILY 08/01/23 08/14/23 History nut.tx.gluc.intol,lac-free,soy 1 ea feeding tube DAILY 08/01/23 08/12/23 History (Glucerna Therapeutic Nutrition oral liquid) sitagliptin phosphate 50 1 tablet PO DAILY #60 tabs 08/01/23 08/14/23 Rx mg-metformin 1,000 mg tablet (Milumereyna) Patient hx anesthesia problems: none Family hx anesthesia problems: none Results Review: All pre-operative results and documents have been reviewed as part of the pre-operative evaluation. [facility] Past Medical History Medical History (Updated 08/13/23 @ 20:37 by Randall Crocker DO) CHF (congestive heart failure) CVA (cerebral vascular accident) Diabetes type 2, controlled Esophageal cancer Esophageal mass Furuncle of back, except buttock Heart failure ICD (implantable cardioverter-defibrillator) in place Uses feeding tube Surgical History Surgical History History of permanent cardiac pacemaker placement Family History Family History Father Acute myocardial infarction Blood clot in vein Mother Dementia Sibling Diabetes mellitus Social History Social History Smoking packs per day: 1 Smoking cigarettes per day: 20.0 Years smoked: 48 Smoking pack-years: 48.00 Smoking status: Current every day smoker Tobacco type: cigarettes Second hand tobacco smoke exposure: Yes Alcohol intake: never Substance use: current Substance use type: marijuana Lack of Transportation: No Lack of Food: Never True Current Housing: I Have Housing Concerned About Future Housing: No Difficulty Paying Gas/Electric Bills: No Difficulty Paying for Meds: No Currently Unemployed: No Education: High School Diploma/GED Difficulty w/ Childcare or Family Care: No Living arrangements: with family Occupation/Education: retired 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 Gender identity (if verbalized by the patient): Male Spiritual care concerns: No Anes - Eval Final PreProcedure Day of Procedure 08/13/23 20:36 Patient weight: normal Heart: regular rate and rhythm Lungs: clear to auscultation and normal air movement Airway: Mallampati scale class II Neurological: alert and oriented Last oral intake: >/= 8 hours ASA classification: IV Emergent: no Anesthetic plan: proceed Anesthesia type and monitoring: general GIVS and standard monitoring Results Review: All pre-operative results and documents have been reviewed as part of the pre-operative evaluation. Informed Consent: The patient's anesthetic plan and its attendant risks and benefits were discussed with the patient/family/POA. Questions were solicited and answers provided to the satisfaction of the patient/family/POA.
--- NOTE | ~2023-08-14 | XR_ITS ---
XR chest port-a-cath/central 08/14/2023 09:02 Indication: Portacatheter placement Procedure: AP portable chest Comparison: Comparison to multiple prior studies sequentially, with oldest reviewed study dated 08/22. Findings: There is a 2.6 cm mass left upper thorax, suspicious for bronchogenic carcinoma. Portacathe ter tip in the SVC. Pacemaker leads are stable. Heart size normal. There are ill-defined infiltrates of the right upper thorax, which may represent focal airspace disease or underlying pulmonary nodule. Impression: 1: Left upper lobe thoracic nodule measuring 2.6 cm, concerning for bronchogenic carcinoma. Ill-defin ed infiltrate right upper thorax which may represent focal consolidation or parenchymal nodule. Canno t exclude underlying pneumonia. 2: Portacatheter tip in the SVC. Reviewed, dictated and finalized at location B. Impression: 1: Left upper lobe thoracic nodule measuring 2.6 cm, concerning for bronchogeni c carcinoma. Ill-defined infiltrate right upper thorax which may represent foca l consolidation or parenchymal nodule. Cannot exclude underlying pneumonia. 2: Portacatheter tip in the SVC.
--- NOTE | ~2023-08-14 | XR_ITS ---
EXAMINATION: XR fl guide central line place DATE: 08/14/2023 08:30 INDICATION: Port placement. TECHNIQUE: 2 intraoperative fluoroscopic views of the chest were obtained. I was not present. Fluoros copy exposure time was 1 minute 25 seconds. COMPARISON: Chest CT 07/10/2023, chest single view 07/10/2023 FINDINGS: There is a right subclavian port with tip in superior vena cava. Partially visualized are p acer wires. IMPRESSION: 1. Port tip in superior vena cava. Reviewed, dictated and finalized at location A.
[2023-08-14 06:24] VITALS: BP 126/88; PULSE 83; RESP 20; TEMP 36.2; O2SAT 98
[2023-08-14] MEDS: LACTATED RINGERS 1,000 ML 30 ML IV CONT (06:55)
[2023-08-14] MEDS: KETOROLAC 15 MG/ML VIAL (*BKC) IV PUSH (07:00)
--- NOTE | 2023-08-14 07:08 | WPDHPUPDATE1 ---
History and Physical Update Update Date/Time: 08/14/23 07:08 History and Physical has been reviewed, including an updated exam of the patient. There are NO changes in the patient's condition. Risks, benefits, and alternatives have been discussed and questions answered. Patient agrees to proceed with procedure.
[2023-08-14 07:14] LABS: Glucose Point of Care 214 mg/dl (65-105)
--- NOTE | 2023-08-14 07:28 | SUR.PREOP ---
020-DR. BENSON AWARE OF ACCUCHECK 214.
[2023-08-14 07:29] LABS: Partial Thromboplastin Time 38.1 SECONDS (22.3-36.8)
[2023-08-14] MEDS: ceFAZolin 2 GM/D5W 50 ML 2 GM/50 ML BAG IVPB (07:31)
[2023-08-14] MEDS: BUPIVACAINE/EPINEPHRINE 0.5% 50 ML VIAL 15 ML INFILTRATE (08:13)
[2023-08-14] MEDS: HEPARIN SODIUM 1,000 UNITS/ML VIAL 1000 UNITS XX (08:15)
[2023-08-14 08:35] VITALS: BP 124/59; PULSE 40; RESP 12; O2SAT 99
--- NOTE | 2023-08-14 08:48 | P.OP_ITS ---
Procedure Note - Detailed Date of Procedure 08/14/23 Pre-op Diagnosis esophageal CA, lung mass, inadequate venous access Post-op Diagnosis Same Procedure Performed Placement left subclavian vortex Port-A-Cath under fluoroscopy Surgeon Art Booth MD Physical Education Instructor ERIKA Zhao Anesthesia MAC and Local Indications Patient is a 63-year-old man who had weight loss and dysphagia. 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 A gastrostomy tube was placed. He has also been found on imaging to have a left lower lobe superior segment cavitary nodule suspicious for carcinoma either metastatic or primary. Biopsy is pending. He is in need of chemotherapy which is due to start next week. He is taken to operating room now for placement of a Port-A-Cath. Findings Port-A-Cath in the distal SVC right atrial junction. Description of Procedure Patient was taken to surgery and sedation was administered. The right neck and right subclavian areas were prepped and draped. The proposed subclavian incision was marked on the skin. Local was infiltrated into the skin and the subcutaneous. Incision was made and dissection was carried down through the pectoralis major fascia. A subfascial pocket was made just below the incision. Hemostasis was excellent. Additional local was infiltrated under the right clavicle. A single puncture was used to cannulate the right subclavian vein. A guidewire passed into the superior vena cava and this was verified by fluoroscopy. We then used fluoroscopy to measure the length of Port-A-Cath tubing that would be needed. Port-A-Cath tubing was cut to the appropriate length. An introducer and sheath was then passed over the guidewire and into the superior vena cava under fluoroscopic guidance. The introducer and guidewire were removed. The Port-A-Cath was passed through the sheath and into the superior vena cava. Its position was documented by fluoroscopy. The sheath was then removed. The Port-A-Cath was placed in the pocket. Fluoroscopy showed that the Port-A-Cath was in good position. The Port-A-Cath aspirated blood and flushed easily with heparin. The Port-A-Cath was sutured securely to the pectoralis major muscle with 2-0 silk. Port-A-Cath was checked again and aspirated blood easily and was again flushed with heparin. The pocket was then closed with layered closure of 2-0 Vicryl. The skin was closed with subcuticular running 4-0 Monocryl skin suture. Wound was dressed with Exofin surgical adhesive. Patient was awakened and taken to outpatient surgery in good condition. Sponge and needle counts were correct x2. Implants Vortex Port-A-Cath right subclavian position Estimated Blood Loss -5 Drains No Packing No Pathology None sent Complications No immediate complications Condition Stable Disposition Same day [facility] Billing Surgery - Charge Forward: Surgery Billing (Placement right subclavian Port-A-Cath under fluoroscopy)
[2023-08-14 09:00] VITALS: BP 100/58; PULSE 67; RESP 20; O2SAT 94
[2023-08-14 09:23] LABS: Glucose Point of Care 250 mg/dl (65-105)
[2023-08-14 09:30] VITALS: BP 108/69; PULSE 66; RESP 20
[2023-08-14 10:00] VITALS: BP 136/67; PULSE 66; RESP 20
--- NOTE | 2023-08-14 10:41 | SUR.PHASEII ---
0945- pt's pacemaker/defib device interrogated. Dr. Crocker aware. [facility] [place] rep called and stated that readings all look good .
--- NOTE | 2023-08-14 10:43 | SUR.PHASEII ---
0930 - dr. barraza aware of accucheck 250. no orders received.
== END 2023-08-14 10:20 | disposition home or self-care (01) ==
PROVIDERS: PCP Family Medicine; Visit Provider Surgery
PROC: (CPT 36561; principal; 2023-08-14 07:30)
DX: C15.3 Malignant neoplasm of upper third of esophagus (principal); R91.8 Other nonspecific abnormal finding of lung field; I87.2 Venous insufficiency (chronic) (peripheral); E11.9 Type 2 diabetes mellitus without complications; F17.210 Nicotine dependence, cigarettes, uncomplicated; I50.9 Heart failure, unspecified; F12.90 Cannabis use, unspecified, uncomplicated; Z93.1 Gastrostomy status; Z95.810 Presence of automatic (implantable) cardiac defibrillator; Z86.73 Personal history of transient ischemic attack (TIA), and cerebral infarction without residual deficits; Z79.82 Long term (current) use of aspirin; Z79.84 Long term (current) use of oral hypoglycemic drugs; Z79.891 Long term (current) use of opiate analgesic; E46 Unspecified protein-calorie malnutrition; Z68.1 Body mass index [BMI] 19.9 or less, adult
CPT/HCPCS: 36561; 36415; 77001; 82948; 85730; C1788; J0690; J1644; J1885; J2250; J2405; J2704; J3010; J7030; J7120

== ENCOUNTER 2023-08-22 08:47 | Outpatient (CLI) | payer MEDICARE, SELFPAY ==
[2023-08-22 12:33] LABS: Hepatitis B Surface Antigen Negative (Negative)
[2023-08-27 14:53] LABS: NIL 0.02 IU/mL; Quantiferon TB Plus, 1T NEGATIVE (NEGATIVE)
== END 2023-08-22 08:48 | disposition home or self-care (01) ==
LOC: ANHLAB 08:49
PROVIDERS: PCP Family Medicine; Visit Provider Internal Medicine Hematology & Oncology
DX: Z11.59 Encounter for screening for other viral diseases (principal)
CPT/HCPCS: 36415; 86480; 87340

== ENCOUNTER 2023-10-04 22:42 | Emergency (ER) | payer MEDICARE, SELFPAY ==
[2023-10-04] VITALS (8 sets, daily range): BP systolic 97–105; BP diastolic 59–61; PULSE 94–117; RESP 12–28; TEMP 37.4; O2SAT 94–97
--- NOTE | 2023-10-04 | ECG_ITS ---
Measurements Intervals [place] Rate: 104 P: 64 IN: 151 QRS: 60 QRSD: 129 T: 147 QT: 355 QTc: 468 Interpretive Statements ATRIAL SENSE- ELECTRONIC VENTRICULAR PACEMAKER UNDERLYING SINUS TACHYCARDIA BASELINE ARTIFACT- I, II, III, AVR, AVL NO FURTHER INTERPRETATION IS POSSIBLE BORDERLINE ECG COMPARED TO ECG 07/05/2023 22:48:58 SINUS TACHYCARDIA NOW PRESENT Electronically Signed On 10-05-2023 9:24:48 CDT by Onel Gasca D.O.
--- NOTE | ~2023-10-04 | XR_ITS ---
EXAMINATION: XR chest 1V portable INDICATION: Altered mental status TECHNIQUE: Portable AP chest at 0230 hours COMPARISON: 08/14/2023 FINDINGS: A right subclavian Port-A-Cath ends with its tip in the distal superior vena cava. A triple lead cardiac pacemaker of the left chest wall ends with leads in expected locations. The lungs are f ree of acute opacities. The previously described left lung nodule is not well demonstrated on the cur rent examination. The heart size is normal. No pleural effusion or pneumothorax. IMPRESSION: 1. No acute cardiopulmonary abnormality. Reviewed, dictated and finalized at location F.
--- NOTE | ~2023-10-04 | CT_ITS ---
EXAMINATION: CT brain wo con INDICATION: Altered mental status COMPARISON: 07/10/2023 TECHNIQUE: Standard unenhanced head CT. The dose-length product (DLP) was 681.00 mGy-cm. The mA was a djusted according to patient size. Iterative reconstruction technique was employed. FINDINGS: No acute intraparenchymal hemorrhage. No evidence of mass lesion. No evidence of acute infa rction. There are areas of prior infarct in the right parietal and occipital lobes. Old infarcts are also noted in the right frontal lobe deep white matter. There is mild periventricular and subcortical hypodensity probably related to small vessel ischemic disease. There is mild prominence of the sulci and ventricles related to cerebral atrophy. Intracranial calcified cerebral atherosclerosis is noted . No extra-axial collections. No mass effect or midline shift. The orbits and soft tissues are unrema rkable. There is mild mucosal thickening of the paranasal sinuses. IMPRESSION: 1. Areas of prior infarction without acute intracranial abnormality. 2. Age related findings. Reviewed, dictated and finalized at location F.
--- NOTE | ~2023-10-04 | CT_ITS ---
EXAMINATION: CT abdomen pelvis w con INDICATION: Abdominal pain TECHNIQUE: Computed tomographic images of the abdomen and pelvis were obtained after the administrati on of 100 cc of Omnipaque 350 intravenous contrast. The dose-length product (DLP) was 407.98 mGy-cm. Automated exposure control and iterative reconstruction technique were employed. COMPARISON: 07/10/2023 FINDINGS: Minimal dependent atelectasis is present in the lung bases. The heart size is normal. There is a moderate-sized pericardial effusion. There is a 6 mm cyst in the left hepatic lobe. The spleen, pancreas, and adrenal glands are normal. The previously described splenic mass is not well demonstra lara although evaluation is limited by streak artifact from the arms. Stones are present in the nondis tended gallbladder. Cysts of the kidneys measure up to 1.9 cm on the left. There is calcified atheros clerosis of the aorta and many of the other arteries. There is unchanged mild periportal lymphadenopa thy, likely reactive. No free intraperitoneal gas or evidence of bowel obstruction. A gastrostomy is in place. There is mild circumferential wall thickening of multiple pelvic small bowel loops. There i s moderate lumbar spondylosis. IMPRESSION: 1. Mild wall thickening of multiple nondilated pelvic small bowel loops which could reflect enteritis or possibly be related to recent chemotherapy. 2. Cholelithiasis without evidence of cholecystitis. 3. Moderate-sized pericardial effusion. Reviewed, dictated and finalized at location F. IMPRESSION: 1. Mild wall thickening of multiple nondilated pelvic small bowel loops which c ould reflect enteritis or possibly be related to recent chemotherapy. 2. Cholelithiasis without evidence of cholecystitis. 3. Moderate-sized pericardial effusion.
--- NOTE | 2023-10-04 23:26 | PC.NURSE ---
This RN assumed care of patient. This RN took patient report from MARINA Caro.
--- NOTE | 2023-10-04 23:38 | ED.AMS ---
HPI - Altered Mental Status General Chief Complaint: Altered Mental Status Stated Complaint: ams Time Seen by Provider: 10/04/23 23:37 History of Present Illness HPI narrative: Patient is a 63-year-old male with history of esophageal and bladder cancer, on chemotherapy, last run 09/24/23 here with abdominal pain and altered mental status. Patient Was complaining of some abdominal pain yesterday per . provides most of the history. she notes that she withheld his tube feeding today because he has been complaining of abdominal pains. When she came home from work he was attempting to go to the bathroom with a commode and urinated on himself and appeared to be more confused than normal. Patient continues to complain of some abdominal pain but notes that he seems to be grossly back to his baseline at this time from a confusion standpoint. She denies fever. She does note that he has had some associated nausea. Related Data Home Medications Medication Instructions Recorded Confirmed metoprolol succinate 50 mg 50 mg PO DAILY 07/06/23 09/26/23 tablet,extended release 24 hr aspirin 81 mg chewable tablet 81 mg feeding tube DAILY 08/01/23 09/26/23 nut.tx.gluc.intol,lac-free,soy 1 ea feeding tube DAILY 08/01/23 09/26/23 (Glucerna Therapeutic Nutrition oral liquid) Allergies Allergy/AdvReac Type Severity Reaction Status Date / Time Penicillins Allergy Unknown Rash Verified 10/04/23 22:54 Review of Systems Review of Systems: ROS unobtainable: Yes unobtainable due to mental status PMFSH Past Medical History Medical History (Updated 10/05/23 @ 03:09 by Morenita Wahl MD) CHF (congestive heart failure) CVA (cerebral vascular accident) Diabetes type 2, controlled Esophageal cancer Esophageal mass Furuncle of back, except buttock Heart failure ICD (implantable cardioverter-defibrillator) in place Uses feeding tube Surgical History Surgical History History of permanent cardiac pacemaker placement Family History Family History Father Acute myocardial infarction Blood clot in vein Mother Dementia Sibling Diabetes mellitus Social History Social History Smoking packs per day: 2 Smoking cigarettes per day: 40.0 Years smoked: 48 Smoking pack-years: 96.00 Smoking status: Current every day smoker Tobacco type: cigarettes Second hand tobacco smoke exposure: Yes Alcohol intake: never Substance use: current Substance use type: marijuana Lack of Transportation: No Lack of Food: Never True Current Housing: I Have Housing Concerned About Future Housing: No Difficulty Paying Gas/Electric Bills: No Difficulty Paying for Meds: No Currently Unemployed: No Education: High School Diploma/GED Difficulty w/ Childcare or Family Care: No Living arrangements: with family Occupation/Education: retired 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 Gender identity (if verbalized by the patient): Male Spiritual care concerns: No Exam Narrative: GENERAL: Cachectic, and in no acute distress. HEAD: Normocephalic, atraumatic. EYES: PERRLA and EOMI. ENT: Nares clear. Mucous membranes moist. NECK: Supple. CHEST: Clear to auscultation. No respiratory distress. HEART: Regular rate and rhythm. Normal peripheral pulses. ABDOMEN: Soft, diffuse abdominal tenderness with voluntary guarding, no rebound. Peg tube present midline, appears to be clean and dry. EXTREMITIES: Normal range of motion. No edema. SKIN: Warm, dry, no rash. NEURO: No focal deficits. Alert and oriented x3. PSYCH: Normal mood and affect. Course Course Emergency Course: Chart review performed. Patient here via EMS for not feeling well after Chemo on Saturday. Initial BP from EMS was reportedly
[2023-10-04 23:40] LABS: Basophils Percent Auto 0.3 % (0.2-1.2); Eosinophils Absolute Auto 0.2 K/mm3 (0-0.3); Eosinophils Percent Auto 1.3 % (0-4.4); Hematocrit 37.2 % (42.0-52.0); Hemoglobin 11.9 g/dL (14.0-18.0); Immature Granulocyte Absolute 0.04 K/mm3 (0.00-0.031); Immature Granulocyte Percent A 0.3 % (0-0.5); Lymphocytes Absolute Auto 0.62 K/mm3 (0.9-3.2); Lymphocytes Percent Auto 4.6 % (18.3-44.2); Mean Corpuscular Hemoglobin 27.5 pg (26-34); Mean Corpuscular Volume 86.1 fl (80-100); Mean Platelet Volume 9.9 fl (7.4-10.4); Monocytes Absolute Auto 1.7 K/mm3 (0.1-0.6); Monocytes Percent Auto 12.6 % (2.6-8.5); Neutrophils Percent Auto 80.9 % (45.5-73.1); Platelet Count Result 141 k/mm3 (150-375); Red Blood Count 4.32 M/mm3 (4.6-6.20); Red Cell Distribution Width 18.2 % (11.5-14.5); White Blood Count 13.5 K/mm3 (4.5-10.0)
[2023-10-04 23:47] LABS: Appearance Urine Cloudy (Clear); Bacteria Urine None Seen /hpf; Bilirubin Urine Negative (Negative); Blood Urine Negative (Negative); Color Urine Yellow (Yellow); Glucose Urine UA 2+ mg/dL (Negative); Ketones Urine Trace mg/dL (Negative); Leukocyte Esterase Ur Negative LEU/UL (Negative); Nitrate Urine Negative (Negative); Protein Urine 2+ mg/dL (Negative); RBC Urine 0-2 /hpf (0-2); Specific Grav Ur 1.024 (1.001-1.035); Squamous Epithelial Cell Urine None seen /hpf (Few); Urobilinogen Urine 0.2 mg/dL (<2.0); WBC Urine 0-5 /hpf
[2023-10-04 23:54] LABS: INR 1.3; Prothrombin Time 16.7 Seconds (11.1-14.7)
[2023-10-04 23:55] LABS: Partial Thromboplastin Time 39.7 SECONDS (22.3-36.8)
[2023-10-04 23:56] LABS: Alanine Aminotransferase 17 U/L (6-50); Albumin Level 3.5 g/dL (3.5-5.1); Alkaline Phosphatase 52 U/L (38-126); Anion Gap 8 mmol/L (8-16); Aspartate Amino Transferase 26 U/L (17-59); Bilirubin,Total 0.5 mg/dL (0.2-1.3); Blood Urea Nitrogen 13 mg/dL (9-20); Calcium 8.5 mg/dL (8.4-10.2); Carbon Dioxide 21 mmol/L (22-30); Chloride 102 mmol/L (98-107); Estimated CRCL calculation 100 ml/min; Estimated Glomerular Filt Rate > 60; Glucose 265 mg/dL (65-110); Potassium 4.1 mmol/L (3.4-5.0); Sodium 131 mmol/L (137-145)
[2023-10-04 23:59] LABS: Add Urine Microscopic? YES
[2023-10-05] VITALS: PULSE 101; RESP 26
[2023-10-05 00:01] VITALS: BP 104/61
[2023-10-05] MEDS: SODIUM CHLORIDE 0.9% IV 1,000 ML 999 ML IV CONT (00:12)
[2023-10-05 00:19] VITALS: PULSE 91; RESP 14; O2SAT 96
--- NOTE | 2023-10-05 00:28 | PC.NURSE ---
Cat scan called this RN and stated pt is refusing to do ct scan. This RN notified dag sprayer, and EDP Dr. Wahl. Pt also refused medications. EDP Dr. Wahl made aware.
[2023-10-05 00:30] VITALS: PULSE 86; RESP 16; O2SAT 95
[2023-10-05 00:37] LABS: Lactic Acid Reflex 2.7 mmol/L (0.7-2.0)
[2023-10-05 00:40] LABS: CRP 7.3 mg/dL (<1.0)
[2023-10-05 01:03] LABS: Influenza A QL RT-PCR Negative (Negative); Influenza B QL RT-PCR Negative (Negative); RSV RNA, RT-PCR Negative (Negative); SARS-CoV-2 RNA PCR Negative (Negative)
--- NOTE | 2023-10-05 01:44 | PC.NURSE ---
THIS RN WENT TO DISCONTINUE IV FLUIDS, UPON REMOVING BAG OF FLUIDS, THIS RN NOTED THAT PT HAD REMOVED IV ACCESS. CATHETER WAS INTACT ON THE BED UNDER PATIENT. WHEN THIS RN ASKED WHAT HAPPENED PT STATED HE WANTED IT OUT. EDP DR LAMB MADE AWARE.
[2023-10-05 03:25] LABS: Reflex Lactic Acid Yes or No Add Lactic
== END 2023-10-05 03:18 | disposition left against medical advice (07) ==
PROVIDERS: Emergency Provider Student in an Organized Health Care Education/Training Program; PCP Family Medicine
DX: R10.84 Generalized abdominal pain (principal); D72.829 Elevated white blood cell count, unspecified; C15.9 Malignant neoplasm of esophagus, unspecified; R91.8 Other nonspecific abnormal finding of lung field; R41.82 Altered mental status, unspecified; Z20.822 Contact with and (suspected) exposure to COVID-19; I50.9 Heart failure, unspecified; E11.9 Type 2 diabetes mellitus without complications; F17.210 Nicotine dependence, cigarettes, uncomplicated; Z93.1 Gastrostomy status; Z95.0 Presence of cardiac pacemaker; Z86.73 Personal history of transient ischemic attack (TIA), and cerebral infarction without residual deficits; Z79.60 Long term (current) use of unspecified immunomodulators and immunosuppressants; Z79.82 Long term (current) use of aspirin; Z79.84 Long term (current) use of oral hypoglycemic drugs; K80.20 Calculus of gallbladder without cholecystitis without obstruction; I31.39 Other pericardial effusion (noninflammatory); R00.0 Tachycardia, unspecified
CPT/HCPCS: 36415; 70450; 71045; 74177; 80053; 81001; 83605; 85025; 85610; 85730; 86140; 87040; 87637; 93005; 96360; 99284; J7030; Q9967

== ENCOUNTER 2023-11-23 07:36 | Outpatient (CLI) | payer MEDICARE, SELFPAY ==
--- NOTE | ~2023-11-23 | CT_ITS ---
EXAMINATION: CT chest abdomen pelvis w con DATE: 11/25/2023 14:16 ROVING WINDER INDICATION: Cancer of the proximal third of the esophagus. TECHNIQUE: Computed tomography (CT) of the chest, abdomen, and pelvis was performed without intraveno us contrast. The dose-length product was 601.53 mGy-cm. Automated exposure control and iterative sasha nstruction technique were employed. COMPARISON: CT dated 10/05/2023 at 07/10/2023 FINDINGS: CHEST CT: Decreased size of left lower lobe nodule measuring 1.3 cm compared with 2.4 cm on 07/10/2023, consist ent with treated malignancy. No focal airspace consolidation. No pneumothorax. No endobronchial lesio ns. Significant improvement of left hilar and mediastinal lymphadenopathy, consistent with interval r esponse to therapy. Heart size normal. No evidence for aortic aneurysm or dissection. Small hiatal he rnia. Small pericardial effusion. No pleural effusion. ABDOMEN/PELVIS CT: The 8 mm splenic lesion seen on prior examination is not appreciated on the current study. Small para esophageal and periportal lymphadenopathy is unchanged. There are gallstones. There is a gastric tube present. The liver, spleen, pancreas, adrenal glands are unremarkable. There are bilateral renal cys ts. There is atherosclerosis of the abdominal aorta without aneurysm. There is moderate stenosis of t he left external iliac and to a lesser degree the right external iliac arteries. Moderate fecal loadi ng of the distal colon and rectum. Moderate lumbar spondylosis. No focal lytic or blastic lesions. IMPRESSION: 1. Improved left lower lobe nodule measuring 1.3 cm compared with 2.4 cm on prior study. Improved tho racic lymphadenopathy. These findings are compatible with interval response to treatment. 2: Stable mild periportal and paraesophageal lymphadenopathy, likely metastatic disease. Reviewed, dictated and finalized at location A. NG WINDER IMPRESSION: 1. Improved left lower lobe nodule measuring 1.3 cm compared with 2.4 cm on myron or study. Improved thoracic lymphadenopathy. These findings are compatible with interval response to treatment. 2: Stable mild periportal and paraesophageal lymphadenopathy, likely metastatic disease.
== END 2023-11-23 07:37 | disposition home or self-care (01) ==
PROVIDERS: PCP Family Medicine; Visit Provider Internal Medicine Hematology & Oncology
DX: C15.3 Malignant neoplasm of upper third of esophagus (principal); R91.1 Solitary pulmonary nodule; R59.0 Localized enlarged lymph nodes
CPT/HCPCS: 71260; 74177; Q9967

== ENCOUNTER 2023-11-27 08:26 | Outpatient (CLI) | payer MEDICARE, SELFPAY ==
[2023-11-27 10:44] LABS: NT Pro B Type Natriuretic Pept 3990 pg/mL (19.9-100)
== END 2023-11-27 08:27 | disposition home or self-care (01) ==
LOC: ANHLAB 08:28
PROVIDERS: PCP Family Medicine; Visit Provider Physician Assistant Medical
DX: R60.9 Edema, unspecified (principal)
CPT/HCPCS: 36415; 83880

== ENCOUNTER 2023-12-24 23:03 | Observation (INO) | payer MEDICARE, SELFPAY ==
--- NOTE | ~2023-12-24 | XR_ITS ---
EXAMINATION: XR chest 1V portable DATE: 12/24/2023 23:55 INDICATION: Dyspnea. TECHNIQUE: A single frontal view of the chest was obtained. COMPARISON: Chest single view 10/05/2023, chest CT 11/23/2023 FINDINGS: There is a diffuse interstitial pattern, consistent with mild pulmonary edema. No pleural e ffusion or pneumothorax. The heart size is normal. There is a left chest pacer/defibrillator with jc ds in right atrium, right ventricle, and coronary sinus. There is a right subclavian port with tip in superior vena cava. IMPRESSION: 1. Mild pulmonary edema. Reviewed, dictated and finalized at location E. DOWN NURSE IMPRESSION: 1. Mild pulmonary edema.
--- NOTE | ~2023-12-24 | CT_ITS ---
Clinical Indication: Shortness of breath, history of esophageal/lung cancer CT Scan of the Chest with Contrast: Technique: Contiguous sections were acquired throughout the chest after intravenous administration of 100 cc of Omnipaque 350. Dose reduction technique was used on this scan by utilizing automated expos ure control and iterative reconstruction technique. The dose-length product (DLP) was 628.09 mGy-cm. COMPARISON: 11/23/2023 Findings: There is no evidence of any significant mediastinal, hilar or axillary lymphadenopathy. There is no l arge central pulmonary embolus. Respiratory motion artifact limits evaluation for more distal pulmona ry emboli. There is no evidence of aortic dissection or aneurysm. There is extensive wall thickening of the mid esophagus. Minimal right pleural effusion present. No left pleural effusion. No pericardial effusion. 1.1 cm pulmonary nodule in the superior segment of the left lower lobe is similar to prior exam given limitations of motion artifact. Images through the upper abdomen reveal no abnormalities. Impression: No large central pulmonary embolus. Respiratory motion artifact limits evaluation for smaller, more p eripheral pulmonary emboli. 1.1 cm superior segment left lower lobe pulmonary nodule is similar to prior exam, possibly metastati c lesion. Wall thickening of the mid esophagus. Findings could reflect post therapy change/esophagitis versus r esidual neoplasm. Correlate with treatment history. Reviewed, dictated and finalized at location . 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 Respiratory motion artifact limits evaluati on for smaller, more peripheral pulmonary emboli. 1.1 cm superior segment left lower lobe pulmonary nodule is similar to prior ex am, possibly metastatic lesion. Wall thickening of the mid esophagus. Findings could reflect post therapy lockett e/esophagitis versus residual neoplasm. Correlate with treatment history.
[2023-12-24 23:13] VITALS: BP 142/86; PULSE 98; RESP 15; TEMP 36.7; O2SAT 86
--- NOTE | 2023-12-24 23:22 | ECG_ITS ---
Measurements Intervals [place] Rate: 99 P: 65 [place]: 138 QRS: 26 QRSD: 137 T: 127 QT: 366 QTc: 470 Interpretive Statements ATRIAL SENSE- ELECTRONIC VENTRICULAR PACEMAKER BASELINE WANDER- I, II, III, AVL, AVF NO FURTHER INTERPRETATION IS POSSIBLE ATYPICAL ECG COMPARED TO ECG 10/04/2023 22:59:09 HEART RATE HAS DECREASED Electronically Signed On 12-25-2023 6:47:52 RECORDER HELPER GRAVITY PROSPECTING by Onel Gasca D.O.
[2023-12-25] VITALS (15 sets, daily range): BP systolic 114–151; BP diastolic 60–83; PULSE 75–96; RESP 14–27; TEMP 36.2–36.6; O2SAT 91–98; BMI 23.4
[2023-12-25 00:08] LABS: Alveolar/Arterial O2 Gradient 163.1 mmHg; Base Excess ABG -1.9 mEq/l (+/-2.0); Fractional Inspired Oxygen 36 %; HCO3 ABG 21.7 mEq/l (22.0-26.0); Oxygen Content ABG 16.3 %vol (16.0-22.0); Oxygen Saturation ABG 89.4 % (95.0-100.0); PCO2 ABG 33.8 mmHg (35.0-45.0); PO2 ABG 54.4 mmHg (80.0-100.0); PO2 FiO2 Ratio Arterial Blood 1.51 %; Total Hemoglobin 13.7 g/dL (12.0-18.0); pH ABG 7.426 (7.350-7.450)
[2023-12-25 00:10] LABS: Modified Allen's Test Pass; Oxyhemoglobin 84.8 % THb (90.0-100.0); Site Drawn LEFT RADIAL
[2023-12-25 00:11] LABS: Device NASAL CANNULA
[2023-12-25] MEDS: IPRATROPIUM 0.5 MG/ALBUTEROL SULFATE 2.5 MG AMPUL.NEB 3 ML INHALATION (00:13)
[2023-12-25 00:20] LABS: Appearance Urine Clear (Clear); Bacteria Urine None Seen /hpf; Bilirubin Urine Negative (Negative); Blood Urine Negative (Negative); Color Urine Yellow (Yellow); Glucose Urine UA Negative (Negative); Ketones Urine 1+ mg/dL (Negative); Leukocyte Esterase Ur Negative LEU/UL (Negative); Nitrate Urine Negative (Negative); Non Pathogenic Casts 0-2; Protein Urine 2+ mg/dL (Negative); RBC Urine 0-2 /hpf (0-2); Specific Grav Ur 1.011 (1.001-1.035); Squamous Epithelial Cell Urine None seen /hpf (Few); Urobilinogen Urine 0.2 mg/dL (<2.0); WBC Urine 0-5 /hpf; pH Urine 5.5 (5.0-9.0)
[2023-12-25 00:27] LABS: Add Urine Microscopic? YES
[2023-12-25 00:38] LABS: Basophils Absolute Auto 0.1 K/mm3 (0.0-0.1); Basophils Percent Auto 0.5 % (0.2-1.2); Eosinophils Absolute Auto 0.3 K/mm3 (0-0.3); Eosinophils Percent Auto 2.6 % (0-4.4); Hematocrit 40.4 % (42.0-52.0); Hemoglobin 12.6 g/dL (14.0-18.0); Immature Granulocyte Absolute 0.07 K/mm3 (0.00-0.031); Immature Granulocyte Percent A 0.5 % (0-0.5); Lymphocytes Absolute Auto 1.61 K/mm3 (0.9-3.2); Lymphocytes Percent Auto 12.1 % (18.3-44.2); Mean Corpuscular HGB Conc 31.2 g/dl (32-36); Mean Corpuscular Hemoglobin 28.5 pg (26-34); Mean Corpuscular Volume 91.4 fl (80-100); Mean Platelet Volume 10.1 fl (7.4-10.4); Monocytes Absolute Auto 0.8 K/mm3 (0.1-0.6); Monocytes Percent Auto 5.8 % (2.6-8.5); Neutrophils Absolute Auto 10.5 K/mm3 (1.3-6.7); Neutrophils Percent Auto 78.5 % (45.5-73.1); Platelet Count Result 273 k/mm3 (150-375); Red Blood Count 4.42 M/mm3 (4.6-6.20); Red Cell Distribution Width 15.2 % (11.5-14.5); White Blood Count 13.3 K/mm3 (4.5-10.0)
[2023-12-25 00:48] LABS: Alanine Aminotransferase 11 U/L (6-50); Albumin Level 4.3 g/dL (3.5-5.1); Alkaline Phosphatase 77 U/L (38-126); Anion Gap 10 mmol/L (8-16); Aspartate Amino Transferase 17 U/L (17-59); Bilirubin,Total 0.6 mg/dL (0.2-1.3); Blood Urea Nitrogen 7 mg/dL (9-20); Carbon Dioxide 26 mmol/L (22-30); Chloride 102 mmol/L (98-107); Estimated CRCL calculation 77 ml/min; Estimated Glomerular Filt Rate > 60; Glucose 227 mg/dL (65-110); Magnesium 1.7 mg/dL (1.6-2.3); Potassium 3.7 mmol/L (3.4-5.0); Sodium 138 mmol/L (137-145)
[2023-12-25 00:50] LABS: Influenza A QL RT-PCR Negative (Negative); Influenza B QL RT-PCR Negative (Negative); RSV RNA, RT-PCR Negative (Negative); SARS-CoV-2 RNA PCR Negative (Negative)
[2023-12-25 00:53] LABS: INR 1.1; Prothrombin Time 14.5 Seconds (11.1-14.7)
[2023-12-25 00:54] LABS: Partial Thromboplastin Time 37.9 SECONDS (22.3-36.8)
[2023-12-25 00:59] LABS: NT Pro B Type Natriuretic Pept 6510 pg/mL (19.9-100); Troponin I < 0.012 ng/mL (0.000-0.034)
[2023-12-25 01:05] LABS: Procalcitonin 0.1 ng/mL
--- NOTE | 2023-12-25 03:54 | ED.GENADULT ---
HPI - General Adult General Chief complaint: Shortness of Breath/Dyspnea Stated complaint: coughing, cant swallow Time Seen by Provider: 12/24/23 23:30 History of Present Illness HPI narrative: Patient is a 63-year-old gentleman who presents emergency department with chief complaint of shortness of breath. Patient reports has been feeling weak dizzy and has had increased secretions. The patient reports has had some tingling in his lips as well patient reports that he normally has a baseline level of shortness of breath but does not wear oxygen at home. The patient when presenting to triage had a room-air oxygenation of 86%. Patient does have history of lung cancer and has been undergoing immunotherapy decided to stop chemotherapy due to the side effects. Related Data Home Medications Medication Instructions Recorded Confirmed metoprolol succinate 50 mg 50 mg PO DAILY 07/06/23 12/17/23 tablet,extended release 24 hr nut.tx.gluc.intol,lac-free,soy 1 ea feeding tube DAILY 08/01/23 12/17/23 (Glucerna Therapeutic Nutrition oral liquid) Allergies Allergy/AdvReac Type Severity Reaction Status Date / Time Penicillins Allergy Unknown Rash Verified 12/25/23 00:18 Review of Systems Review of Systems: A 10 system review of systems was completed on the patient and is negative except for what is stated in the HPI. Nursing and ancillary documentation was reviewed. [facility] Past Medical History Medical History CHF (congestive heart failure) CVA (cerebral vascular accident) Diabetes type 2, controlled Esophageal cancer Esophageal mass Furuncle of back, except buttock Heart failure ICD (implantable cardioverter-defibrillator) in place Uses feeding tube Surgical History Surgical History History of permanent cardiac pacemaker placement Family History Family History Father Acute myocardial infarction Blood clot in vein Mother Dementia Sibling Diabetes mellitus Social History Social History Smoking packs per day: 2 Smoking cigarettes per day: 40.0 Years smoked: 48 Smoking pack-years: 96.00 Smoking status: Current every day smoker Tobacco type: cigarettes Second hand tobacco smoke exposure: Yes Alcohol intake: never Substance use: current Substance use type: marijuana Lack of Transportation: No Lack of Food: Never True Current Housing: I Have Housing Concerned About Future Housing: No Difficulty Paying Gas/Electric Bills: No Difficulty Paying for Meds: No Currently Unemployed: No Education: High School Diploma/GED Difficulty w/ Childcare or Family Care: No Living arrangements: with family Occupation/Education: retired 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 Gender identity (if verbalized by the patient): Male Spiritual care concerns: No Exam Narrative: GENERAL: Well-appearing, well-nourished, and in no acute distress. HEAD: Normocephalic, atraumatic. EYES: PERRLA and EOMI. ENT: Nares clear, no rhinorrhea or epistaxis. Mucous membranes moist. NECK: Supple. CHEST: Clear to auscultation. No respiratory distress. HEART: Regular rate and rhythm. No murmur heard. Normal peripheral pulses. ABDOMEN: Soft, nontender, nondistended, normal active bowel sounds. EXTREMITIES: Normal range of motion. No edema. SKIN: Warm, dry, no rash. NEURO: No focal deficits. Alert and oriented x3. PSYCH: Normal mood and affect. Course Vital Signs Vital signs: Vital Signs Temperature 36.7 C 12/24/23 23:13 Pulse Rate 98 12/24/23 23:13 Respiratory Rate 15 12/24/23 23:13 Blood Pressure 142/86 H 12/24/23 23:13 Pulse Oximetry 86 L 12/24/23 23:13 Oxygen Deliv
[2023-12-25] MEDS: FUROSEMIDE INJ 40 MG/4 ML VIAL IV PUSH ×3 (04:21→20:12)
--- NOTE | 2023-12-25 06:00 | ADMGEN ---
This patient, Raoul Bacon Jr., was admitted to 3 [facility] Surg Room 319-01. Patient/family oriented to hospital policies and general routines including ID bracelet, bed and alarms, visiting hours, pain management, procedures, bathroom and other care routines, personal items, smoking policy, room service/diet, and visiting hours. Information on how to activate the Rapid Response Team has been discussed. Patient/Family are encouraged to report perceived risks to care and to ask questions if they do not understand what they are told or what they should do.
[2023-12-25] MEDS: NICOTINE (*PBKC) 14 MG PATCH 1 PATCH TRANSDERM (09:30)
[2023-12-25 11:12] LABS: Glucose Point of Care 286 mg/dl (65-105)
[2023-12-25] MEDS: INSULIN ASPART (*BKC) 100 UNITS/ML SUB-Q ×2 (11:28→20:52)
--- NOTE | 2023-12-25 15:59 | PM.IMHP ---
H&P: HPI History of Present Illness Date/Time: 12/25/23 15:59 Chief Complaint: SOB Narrative: Pt admitted with acute SOB 63 year old male known to be type 2 diabetic and long-term smoker.? 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 SOB appears secondary to pulmonary edema on CXR, CT scan shows - No large central pulmonary embolus. 1.1 cm superior segment left lower lobe pulmonary nodule is similar to prior exam, possibly metastatic lesion. Wall thickening of the mid esophagus. Findings could reflect post therapy change/esophagitis versus residual neoplasm. Pt want to leave and smoke explained to him that he is needing 5 liters of oxygen not safe to leave Review of Systems Review of Systems: SOB all other symptoms are negative apart from SOB PMFSH Past Medical History Medical History CHF (congestive heart failure) CVA (cerebral vascular accident) Diabetes type 2, controlled Esophageal cancer Esophageal mass Furuncle of back, except buttock Heart failure ICD (implantable cardioverter-defibrillator) in place Uses feeding tube Surgical History Surgical History History of permanent cardiac pacemaker placement Family History Family History Father Acute myocardial infarction Blood clot in vein Mother Dementia Sibling Diabetes mellitus Social History Social History Smoking packs per day: 1.5 Smoking cigarettes per day: 30.0 Years smoked: 50 Smoking pack-years: 75.00 Smoking status: Current every day smoker Tobacco type: cigarettes Second hand tobacco smoke exposure: Yes Alcohol intake: never Substance use: current Substance use type: marijuana Other substance usage details: multiple joints a day Do You Feel Safe in your Home?: Yes Lack of Transportation: No Lack of Food: Never True Current Housing: I Have Housing Concerned About Future Housing: No Difficulty Paying Gas/Electric Bills: No Difficulty Paying for Meds: No Currently Unemployed: No Education: Grade School Difficulty w/ Childcare or Family Care: No Living arrangements: with family Occupation/Education: retired 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 Gender identity (if verbalized by the patient): Male Spiritual care concerns: No Meds Home Medications and Allergies Home Medications Medication Instructions Recorded Confirmed Type metoprolol succinate 50 mg 50 mg PO DAILY 07/06/23 12/25/23 History tablet,extended release 24 hr hydrocodone 5 mg-acetaminophen 325 1 tablet PO Q8H PRN pain #60 tabs 07/14/23 12/25/23 Rx mg tablet sitagliptin phosphate 50 1 tablet PO DAILY #60 tabs 09/12/23 12/25/23 Rx mg-metformin 1,000 mg tablet (Janumet) furosemide 20 mg tablet (Lasix) 20 mg PO QAM #30 tabs 11/28/23 12/25/23 Rx Allergies Allergy/AdvReac Type Severity Reaction Status Date / Time Penicillins Allergy Unknown Rash Verified 12/25/23 00:18 Vital Signs Vital Signs - 24 hr 12/24/23 23:13 12/25/23 00:14 12/25/23 00:14 Temperature 36.7 C Pulse Rate 98 91 Respiratory Rate 15 Blood Pressure 142/86 H Pulse Oximetry 86 L 96 Oxygen Delivery Room Air Room Air Oxygen Flow Rate 12/25/23 00:14 12/25/23 00:05 12/25/23 01:49 Temperature Pulse Rate 95 90 75 Respiratory Rate 27 H 21 H 14 Blood Pressure 151/83 H Pulse Oximetry 95 98 Oxygen Delivery Oxygen Flow Rate 12/25/23 00:30 12/25/23 04:15 12/25/23 00:20 Temperature Pulse Rate 85 85 Respiratory Rate 20 20 Blood Pressure Pulse Oximetry 97 98 Oxygen Delivery High Flow Nasal Cannula Oxygen Flow Rate 8 12/25/23 05:12 12/25/23
[2023-12-25 16:34] LABS: Glucose Point of Care 139 mg/dl (65-105)
[2023-12-25 20:32] LABS: Glucose Point of Care 260 mg/dl (65-105)
[2023-12-26] VITALS (8 sets, daily range): BP systolic 122; BP diastolic 71; PULSE 81–108; RESP 16; TEMP 36.4; O2SAT 92–96
[2023-12-26 07:07] LABS: Anion Gap 8 mmol/L (8-16); Blood Urea Nitrogen 10 mg/dL (9-20); Calcium 9.1 mg/dL (8.4-10.2); Carbon Dioxide 30 mmol/L (22-30); Chloride 102 mmol/L (98-107); Estimated CRCL calculation 86 ml/min; Estimated Glomerular Filt Rate > 60; Glucose 194 mg/dL (65-110); Potassium 3.5 mmol/L (3.4-5.0); Sodium 140 mmol/L (137-145)
[2023-12-26] MEDS: INSULIN ASPART (*BKC) 100 UNITS/ML SUB-Q (08:28)
[2023-12-26] MEDS: NICOTINE (*PBKC) 14 MG PATCH 1 PATCH TRANSDERM (08:31)
[2023-12-26] MEDS: FUROSEMIDE INJ 40 MG/4 ML VIAL IV PUSH (08:35)
[2023-12-26] MEDS: METOPROLOL SUCCINATE EXT REL 50 MG TABCR PO (08:36)
[2023-12-26] MEDS: ENOXAPARIN 40 MG/0.4 ML SYRINGE SUB-Q (08:36)
[2023-12-26 08:38] LABS: Glucose Point of Care 201 mg/dl (65-105)
--- NOTE | 2023-12-26 10:21 | HOMEO2EVAL ---
Evaluation was performed at [facility] Home Oxygen Evaluation RC: Home Oxygen (O2) Evaluation Start: 12/25/23 13:01 Freq: ONCE Status: Active Protocol: RPE Activity Type Activity Date Activity User E-sign Co-sign Detail Recorded Client Recorded Date Recorded By Document 12/26/23 10:00 [email or web address] [email or web address] 12/26/23 10:21 DJO Document 12/26/23 10:05 [email or web address] [email or web address] 12/26/23 10:21 DJO Document 12/26/23 10:15 [email or web address] [email or web address] 12/26/23 10:21 DJO 12/26/23 12/26/23 12/26/23 10:00 10:05 10:15 Home O2 Evaluation [Oxygen] -Test Phase Resting Exercise Resting -Oxygen Delivery Room Air Room Air Room Air [Pulse Oximetry] -Pulse Oximetry (90-100 %) 95 96 96 [Pulse Rate] -Pulse Rate (60-100 beats/min) 92 108 H 91 [Evaluation] -Activity Tolerance Excellent [Charges] -Evaluation Charges O2 Evaluation by Pulmonary
--- NOTE | 2023-12-26 10:21 | PCRCNOTE ---
HOME OXYGEN EVAL COMPLETE, NO REQUIREMENTS
--- NOTE | 2023-12-26 10:33 | PM.DS ---
DS: Admitting Diagnosis Discharge Date 12/26/2023 Admitting Diagnosis SOB DS: Discharge Diagnosis Discharge Diagnosis (1) Acute hypoxemic respiratory failure: Code(s): J96.01 - Acute respiratory failure with hypoxia Status: Acute Assessment and Plan: Pt had cxr and ct scan both reviewed Continue oxygen at 5 liters pt will benefit from ambulate walk study prior to dc Pt wants to leave as soon as possible [place] (2) Acute exacerbation of CHF (congestive heart failure): Code(s): I50.9 - Heart failure, unspecified Status: Acute Assessment and Plan: order echo for am order walk study pt to have iv lasix for diuresis change to oral lasix (3) Metastatic lung cancer (metastasis from lung to other site): Qualifiers: Laterality: unspecified laterality Qualified Code(s): C34.90 - Malignant neoplasm of unspecified part of unspecified bronchus or lung Code(s): C34.90 - Malignant neoplasm of unspecified part of unspecified bronchus or lung Status: Acute (4) Esophageal mass: Code(s): K22.89 - Other specified disease of esophagus Status: Acute Assessment and Plan: h/o esophegeal mass pt follows with Dr Sellers oncology MD Plan Tobacco abuse adviced to quit smoking pt is not wanting to do this pt has a nicotine patch on Dc with patches also DS: Summary Hospital Course Hospital Course: Pt admitted with acute SOB?? 63 year old male known to be type 2 diabetic and long-term smoker.? 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 SOB appears secondary to pulmonary edema on CXR, CT scan shows -?No large central pulmonary embolus. 1.1 cm superior segment left lower lobe pulmonary nodule is similar to prior exam, possibly metastatic lesion. Wall thickening of the mid esophagus. Findings could reflect post therapy change/esophagitis versus residual neoplasm. Pt want to leave and smoke explained to him that he is needing 5 liters of oxygen not safe to leave, pt did well diuresed well on IV lasix Pt weaned off oxygen completely the next day and passed his walk study also. DC back on his home medications Time Spent with Patient Time attestation: Total time spent providing and/or coordinating discharge services:45 minutes on day of DC Exam Narrative: GENERAL: Well-appearing, well-nourished, and in no acute distress. HEAD: Normocephalic, atraumatic. EYES: PERRLA and EOMI. ENT: Nares clear, no rhinorrhea or epistaxis. Mucous membranes moist. NECK: Supple. CHEST: Clear to auscultation. No respiratory distress. HEART: Regular rate and rhythm. No murmur heard. Normal peripheral pulses. ABDOMEN: Soft, nontender, nondistended, normal active bowel sounds. EXTREMITIES: Normal range of motion. No edema. SKIN: Warm, dry, no rash. NEURO: No focal deficits. Alert and oriented x3. PSYCH: Normal mood and affect. DS: Data Data Completed and Pending Labs on day of discharge: Labs from last 24 hours 12/26/23 12/26/23 12/25/23 08:24 06:37 20:29 Sodium 140 Potassium 3.5 Chloride 102 Carbon Dioxide 30 Anion Gap 8 BUN 10 Creatinine 0.70 Estim Creat Clear Calc 86 Estimated GFR > 60 Glucose 194 H POC Capillary Glucose 201 H 260 H Calcium 9.1 12/25/23 12/25/23 16:31 11:08 Sodium Potassium Chloride Carbon Dioxide Anion Gap BUN Creatinine Estim Creat Clear Calc Estimated GFR Glucose POC Capillary Glucose 139 H 286 H Calcium Discharge Plan Discharge Attending physician on discharge: Kathy Correa Discharging Clinician: Kathy Correa Anticipated Discharge Date/Time: 12/26/23 10:31 Patient Disposition: Home, Self-Care Activity: as tolerated Diet: diabetic Patient Instructions: Antibiotic Form, Heart Failure (GEN), How to Stop Smoking (DC) Stand Alone Forms: General Discharge Info
== END 2023-12-26 11:09 | disposition home or self-care (01) ==
LOC: ANHED 12-25 04:14 → ANH3MEDSUR 12-25 04:46
PROVIDERS: Family Medicine; Admitting Provider Internal Medicine; Emergency Provider Emergency Medicine; PCP Family Medicine; Visit Provider Internal Medicine
DX: J96.01 Acute respiratory failure with hypoxia (principal); C34.90 Malignant neoplasm of unspecified part of unspecified bronchus or lung; C79.9 Secondary malignant neoplasm of unspecified site; K22.89 Other specified disease of esophagus; I50.9 Heart failure, unspecified; E11.9 Type 2 diabetes mellitus without complications; R91.1 Solitary pulmonary nodule; Z95.810 Presence of automatic (implantable) cardiac defibrillator; Z85.01 Personal history of malignant neoplasm of esophagus; Z93.1 Gastrostomy status; Z86.73 Personal history of transient ischemic attack (TIA), and cerebral infarction without residual deficits; F17.210 Nicotine dependence, cigarettes, uncomplicated; F12.90 Cannabis use, unspecified, uncomplicated; Z79.84 Long term (current) use of oral hypoglycemic drugs; Z20.822 Contact with and (suspected) exposure to COVID-19
CPT/HCPCS: 36415; 36600; 71045; 71275; 80048; 80053; 81001; 82805; 82948; 83605; 83735; 83880; 84145; 84484; 85025; 85610; 85730; 87637; 93005; 94618; 94640; 96372; 96374; 96376; 99291; A9270; G0378; J1650; J1815; J1940; Q9967

== ENCOUNTER 2024-04-13 03:01 | Observation (INO) | payer MEDICARE, SELFPAY ==
--- NOTE | ~2024-04-13 | XR_ITS ---
EXAMINATION: XR chest 1V portable DATE: 04/13/2024 12:38 INDICATION: Cough. TECHNIQUE: A single frontal view of the chest was obtained on 2 radiographs. COMPARISON: Chest single view 12/24/2023 FINDINGS: There is no pneumonia, pleural effusion, or pneumothorax. The heart size is normal. There i s a left chest pacer/defibrillator with leads in right atrium, right ventricle, and coronary sinus. T here is a right subclavian port with tip in superior vena cava. IMPRESSION: 1. No acute cardiopulmonary disease. Reviewed, dictated and finalized at location A.
--- NOTE | ~2024-04-13 | XR_ITS ---
EXAMINATION: XR abdomen obstructive series DATE: 04/13/2024 12:38 INDICATION: Abdominal pain. TECHNIQUE: Upright and supine views of the abdomen were obtained. COMPARISON: CT abdomen and pelvis 11/23/2023 FINDINGS: There are no dilated loops of bowel. There is a small volume of stool in the colon. No free intraperitoneal gas. The gastrostomy tube is in expected position. There is a left chest wall pacer with leads in the right atrium and right ventricle. There is a right subclavian port with tip in supe rior vena cava. IMPRESSION: 1. Normal bowel gas pattern. Reviewed, dictated and finalized at location A.
[2024-04-13 02:58] VITALS: BP 128/79; PULSE 69; RESP 17; TEMP 36.7; O2SAT 93
--- NOTE | 2024-04-13 03:11 | ECG_ITS ---
SEE SCANNED COPY FOR CONFIRMED REPORT MTDD
[2024-04-13 03:27] LABS: Basophils Percent Auto 0.6 % (0.2-1.2); Eosinophils Absolute Auto 0.3 K/mm3 (0-0.3); Eosinophils Percent Auto 4.5 % (0-4.4); Immature Granulocyte Absolute 0.02 K/mm3 (0.00-0.031); Immature Granulocyte Percent A 0.3 % (0-0.5); Lymphocytes Absolute Auto 1.74 K/mm3 (0.9-3.2); Lymphocytes Percent Auto 25.1 % (18.3-44.2); Mean Corpuscular HGB Conc 31.7 g/dl (32-36); Mean Corpuscular Hemoglobin 27.4 pg (26-34); Mean Corpuscular Volume 86.3 fl (80-100); Mean Platelet Volume 10.1 fl (7.4-10.4); Monocytes Absolute Auto 0.7 K/mm3 (0.1-0.6); Monocytes Percent Auto 10.7 % (2.6-8.5); Neutrophils Absolute Auto 4.1 K/mm3 (1.3-6.7); Neutrophils Percent Auto 58.8 % (45.5-73.1); Platelet Count Result 255 k/mm3 (150-375); Red Blood Count 4.75 M/mm3 (4.6-6.20); Red Cell Distribution Width 14.6 % (11.5-14.5); White Blood Count 6.9 K/mm3 (4.5-10.0)
[2024-04-13 03:38] LABS: Alanine Aminotransferase 13 U/L (6-50); Albumin Level 4.4 g/dL (3.5-5.1); Alkaline Phosphatase 65 U/L (38-126); Anion Gap 11 mmol/L (4-12); Aspartate Amino Transferase 25 U/L (17-59); Bilirubin,Total 0.7 mg/dL (0.2-1.3); Blood Urea Nitrogen 20 mg/dL (9-20); Calcium 9.5 mg/dL (8.4-10.2); Carbon Dioxide 22 mmol/L (22-30); Chloride 103 mmol/L (98-107); Estimated CRCL calculation 63 ml/min; Estimated Glomerular Filt Rate > 60; Glucose 112 mg/dL (65-110); Potassium 3.9 mmol/L (3.4-5.0); Sodium 136 mmol/L (137-145)
[2024-04-13] MEDS: ONDANSETRON INJ 4 MG/2 ML VIAL IV PUSH (04:10)
[2024-04-13] MEDS: SODIUM CHLORIDE 0.9% IV 2,000 ML 999 ML IV CONT (04:10)
[2024-04-13] MEDS: HYDROmorphone HCL INJ (*CRX) 1 MG/ML SYR 0.5 MG IV PUSH ×2 (04:11→21:35)
[2024-04-13] MEDS: FAMOTIDINE 20 MG/2 ML VIAL IV PUSH (04:11)
--- NOTE | 2024-04-13 04:17 | ED.GENADULT ---
HPI - General Adult General Chief complaint: Weakness Stated complaint: Weakness Generalized Time Seen by Provider: 04/13/24 03:30 History of Present Illness HPI narrative: This is a 64-year-old male with history of esophageal cancer currently on keytruda presenting for not feeling well. He has not wanted to eat or drink for the last 3-4 days. He has had diarrhea He feels weak. He is dizzy when he stands up. Patient is generally disagreeable and does not seem interested in participating in the interview. patient makes multiple comments about how he wants to be put out of his misery. Most history obtained from the patient's . Patient's oncologist is Dr. David. Related Data Home Medications Medication Instructions Recorded Confirmed metoprolol succinate 50 mg 25 mg PO DAILY 01/16/24 04/08/24 tablet,extended release 24 hr Allergies Allergy/AdvReac Type Severity Reaction Status Date / Time Penicillins Allergy Unknown Rash Verified 04/08/24 12:55 [facility] Past Medical History Medical History CHF (congestive heart failure) CVA (cerebral vascular accident) Diabetes type 2, controlled Esophageal cancer Esophageal mass Furuncle of back, except buttock G tube feedings Heart failure ICD (implantable cardioverter-defibrillator) in place Lung cancer Sinusitis Uses feeding tube Surgical History Surgical History History of permanent cardiac pacemaker placement Family History Family History Father Acute myocardial infarction Blood clot in vein Mother Dementia Sibling Diabetes mellitus Social History Social History Smoking packs per day: 1.5 Smoking cigarettes per day: 30.0 Years smoked: 50 Smoking pack-years: 75.00 Smoking status: Current every day smoker Tobacco type: cigarettes Second hand tobacco smoke exposure: Yes Alcohol intake: former Substance use: current Substance use type: marijuana Other substance usage details: multiple joints a day Do You Feel Safe in your Home?: Yes Lack of Transportation: No Lack of Food: Never True Current Housing: I Have Housing Concerned About Future Housing: No Difficulty Paying Gas/Electric Bills: No Difficulty Paying for Meds: No Currently Unemployed: No Education: Grade School Difficulty w/ Childcare or Family Care: No Living arrangements: with family Occupation/Education: retired 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 Gender identity (if verbalized by the patient): Male Spiritual care concerns: No Exam Narrative: APPEARANCE: Patient appears tired Head: dry mucous membranes EYES: EOMI, NOSE: Atraumatic NECK: Trachea midline RESPIRATORY: No increased rate of breathing CTAB CARDIOVASCULAR: RRR, no peripheral edema ABDOMINAL: G-tube in place, soft nontender MUSCULOSKELETAl: muscle wasting NEURO: Alert. Moving 4/4 extremities SKIN:: Warm, dry. Normal color PSYCHIATRIC: depressed Course Vital Signs Vital signs: Vital Signs Temperature 98.0 F 04/13/24 02:58 Pulse Rate 69 04/13/24 02:58 Respiratory Rate 17 04/13/24 02:58 Blood Pressure 128/79 04/13/24 02:58 Pulse Oximetry 93 04/13/24 02:58 Oxygen Delivery Room Air 04/13/24 02:58 Temperature 98.0 F 04/13/24 02:58 Pulse Rate 69 04/13/24 02:58 Respiratory Rate 17 04/13/24 02:58 Blood Pressure 128/79 04/13/24 02:58 Pulse Oximetry 93 04/13/24 02:58 Oxygen Delivery Room Air 04/13/24 02:58 Medical Decision Making MDM Narrative Medical decision making narrative: -Course: 64-year-old male with esophageal cancer presenting with weakness, diarrhea and decreased oral intake. Dry mucus membranes on exam.. Patient given pain me
[2024-04-13 04:55] VITALS: BP 110/76; PULSE 70; RESP 16; O2SAT 99
[2024-04-13 06:44] VITALS: BP 108/69; PULSE 83; RESP 16; O2SAT 97
--- NOTE | 2024-04-13 07:48 | PC.NURSE ---
Assumed care of pt. Pt resting with reg resp. Denies any c/o awaiting room assignment
[2024-04-13 07:59] LABS: Appearance Urine Clear (Clear); Bacteria Urine None Seen /hpf; Bilirubin Urine Negative (Negative); Blood Urine Negative (Negative); Color Urine Dark Yellow (Yellow); Glucose Urine UA Negative (Negative); Ketones Urine 3+ mg/dL (Negative); Leukocyte Esterase Ur Negative LEU/UL (Negative); Need Manual Microscopic Reviewed; Nitrate Urine Negative (Negative); Non Pathogenic Casts >20; Protein Urine 2+ mg/dL (Negative); RBC Urine 0-2 /hpf (0-2); Specific Grav Ur 1.025 (1.001-1.035); Squamous Epithelial Cell Urine None Seen /hpf (Few); WBC Urine 0-5 /hpf (0-3)
[2024-04-13 08:00] LABS: Add Urine Microscopic? YES
[2024-04-13 08:12] VITALS: BP 110/68; PULSE 78; RESP 18; TEMP 36.7; O2SAT 98
--- NOTE | 2024-04-13 08:18 | ADMGEN ---
This patient, Raoul Bacon Jr., was admitted to 3 [facility] Surg Room 315-02. Patient/family oriented to hospital policies and general routines including ID bracelet, bed and alarms, visiting hours, pain management, procedures, bathroom and other care routines, personal items, smoking policy, room service/diet, and visiting hours. Information on how to activate the Rapid Response Team has been discussed. Patient/Family are encouraged to report perceived risks to care and to ask questions if they do not understand what they are told or what they should do.
[2024-04-13 08:26] VITALS: BMI 20.7
--- NOTE | 2024-04-13 10:58 | PM.IMHP ---
H&P: HPI History of Present Illness Date/Time: 04/13/24 10:58 Chief Complaint: Weakness Narrative: 64yo male with CHF, hx of CVA, DM and esophageal cancer here for weakness. Patient hospitialized in July 2023 for dysphagia and found to have a fungating, partially obstructing esophageal mass with bx showing squamous cell carcinoma.?GTube was placed. He also had a 2.4cm cavitary nodule LLL either lung CA or metastasis. He is a current heavy smoker up to 2ppd and smokes 'a lot of weed'. He was treated with chemotherapy and initially did well and able to take oral intake but did not tolerate chemo well overall with weight loss down to 112#. Last CT chest in December showing 1.1cm LLL pulmonary nodule and wall thickening of the mid esophagus. He stopped chemo and started Keytruda about 2 months ago. He was reieving Ketruda monthly with natalee gain to 140# and changed to 2x/monthly treatments. He has had a decline and lost 10# recently dsicovered when he was weighed prior to his last Ketruda infusion on 04/07/24. Patient also with 2-3 week hx of cough productive of white sputum, sinus drainage, no appetite and headache. He was seen by the PCP with persistent symptoms on April 08 despite finishing a course of abx for sinus infection. He was started on doxycycline for 10 days but his symptoms worsened with continued decreased oral intake, diarrhea treated with imodium, abdominal pain, cough, dizziness. No fever, chills, chest pain or SOB. He did feel lightheaded and lowered himself to the ground. No head injury or LOC. He stopped the abx after 2 days because he felt this was causig his symptoms. He is refusing tube feedings. flushes the GTube every other day and this does not cause abdominal pain. Patient wants the pain to end but denies suicidal or homicidal ideation. He presented to the ED for evaluation. He and his is considering hospice. Most of the hx obtained from the chart and from his . Patient has mild confusion and refuses also to participate in history and exam. In the ED, he was hemodynamically stable. CBC and CMP were unrevealing. UA showing 2+ protein and 3+ ketones o/w negative. EKG showing paced rhythm. He was given Zofran, Pepcid, Dilaudid and IV fluids. He was admitted for further care. Review of Systems Review of Systems: All systems reviewed & are unremarkable except as noted in HPI and below PMFSH Past Medical History Medical History CHF (congestive heart failure) CVA (cerebral vascular accident) Diabetes type 2, controlled Esophageal cancer Esophageal mass Furuncle of back, except buttock G tube feedings Heart failure ICD (implantable cardioverter-defibrillator) in place Lung cancer Sinusitis Uses feeding tube Surgical History Surgical History History of permanent cardiac pacemaker placement Family History Family History Father Acute myocardial infarction Blood clot in vein Mother Dementia Sibling Diabetes mellitus Social History Social History Smoking packs per day: 1.5 Smoking cigarettes per day: 30.0 Years smoked: 50 Smoking pack-years: 75.00 Smoking status: Current every day smoker Second hand tobacco smoke exposure: Yes Alcohol intake: former Substance use: current Substance use type: marijuana Other substance usage details: multiple joints a day Do You Feel Safe in your Home?: Yes Lack of Transportation: No Lack of Food: Never True Current Housing: I Have Housing Concerned About Future Housing: No Difficulty Paying Gas/Electric Bills: No Difficulty Paying for Meds: No Currently Unemployed: No Education: Grade School Difficulty w/ Childcare or Family Care: No Living arrangements: with family Occup
[2024-04-13] MEDS: ENOXAPARIN 40 MG/0.4 ML SYRINGE SUB-Q (12:49)
[2024-04-13] MEDS: KCL 20 MEQ/D5/0.9% SOD CHL 1,000 ML 70 ML IV CONT ×2 (12:49→21:38)
[2024-04-13] MEDS: AZITHROMYCIN 500 MG/NS 250 ML 500 MG/250 ML BAG 250 MG IVPB (13:36)
[2024-04-13 13:57] VITALS: BP 123/50; PULSE 81; RESP 20; TEMP 36.7; O2SAT 97
--- NOTE | 2024-04-13 15:51 | PCPTNOTE ---
attempted PT eval, pt sleeping and would not acknowledge PT from verbal stimulus, pt did grunt in response to PT introduction and intentions but would still not open eyes, will follow
[2024-04-13 15:57] LABS: MRSA (PCR) NOT DETECTED (NOT DETECTE)
--- NOTE | 2024-04-13 16:46 | PCOTNOTE ---
The patient occupational therapy evaluation was not able to be completed on 04/13 due to patient refusing evaluation. Will plan to evaluate when patient is agreeable.
[2024-04-13 22:00] VITALS: BP 129/48; PULSE 80; RESP 16; TEMP 37.6; O2SAT 96
[2024-04-14] MEDS: HYDROmorphone HCL INJ (*CRX) 1 MG/ML SYR 0.5 MG IV PUSH (03:33)
[2024-04-14 06:00] VITALS: BP 125/76; PULSE 76; RESP 14; TEMP 37.1; O2SAT 94
[2024-04-14 06:44] LABS: Basophils Percent Auto 0.6 % (0.2-1.2); Eosinophils Absolute Auto 0.2 K/mm3 (0-0.3); Eosinophils Percent Auto 2.9 % (0-4.4); Hematocrit 37.5 % (42.0-52.0); Hemoglobin 11.6 g/dL (14.0-18.0); Immature Granulocyte Absolute 0.03 K/mm3 (0.00-0.031); Immature Granulocyte Percent A 0.5 % (0-0.5); Lymphocytes Absolute Auto 1.58 K/mm3 (0.9-3.2); Lymphocytes Percent Auto 25.2 % (18.3-44.2); Mean Corpuscular HGB Conc 30.9 g/dl (32-36); Mean Corpuscular Hemoglobin 27.3 pg (26-34); Mean Corpuscular Volume 88.2 fl (80-100); Mean Platelet Volume 10.3 fl (7.4-10.4); Monocytes Absolute Auto 0.7 K/mm3 (0.1-0.6); Monocytes Percent Auto 11.3 % (2.6-8.5); Neutrophils Absolute Auto 3.7 K/mm3 (1.3-6.7); Neutrophils Percent Auto 59.5 % (45.5-73.1); Platelet Count Result 232 k/mm3 (150-375); Red Blood Count 4.25 M/mm3 (4.6-6.20); Red Cell Distribution Width 14.6 % (11.5-14.5); White Blood Count 6.3 K/mm3 (4.5-10.0)
[2024-04-14 07:05] LABS: Alanine Aminotransferase 12 U/L (6-50); Albumin Level 3.7 g/dL (3.5-5.1); Alkaline Phosphatase 59 U/L (38-126); Anion Gap 9 mmol/L (4-12); Aspartate Amino Transferase 22 U/L (17-59); Bilirubin,Total 0.5 mg/dL (0.2-1.3); Blood Urea Nitrogen 7 mg/dL (9-20); Carbon Dioxide 21 mmol/L (22-30); Chloride 110 mmol/L (98-107); Estimated CRCL calculation 77 ml/min; Estimated Glomerular Filt Rate > 60; Glucose 116 mg/dL (65-110); Magnesium 1.4 mg/dL (1.6-2.3); Phosphorus 3.7 mg/dL (2.5-4.5); Potassium 3.9 mmol/L (3.4-5.0); Sodium 140 mmol/L (137-145)
--- NOTE | 2024-04-14 10:56 | PCPTNOTE ---
spoke with pt who is still refusing physical therapy, spoke with doctor and RN, ok to DC therapy orders
--- NOTE | 2024-04-14 11:02 | PCOTNOTE ---
Pt. adamantly refusing to particiate in therapy. PT spoke with hospitalist and nursing who are in agreement to cancelation of orders. Re-order if pt. willing to participate and appropriate for services.
[2024-04-14] MEDS: MORPHINE SULFATE ORAL CONC SOL (*CRX) 10 MG/0.5 ML SYRINGE 5 MG PO (12:22)
--- NOTE | 2024-04-14 12:40 | PDONCCN ---
[facility] - Date of Consult Date/Time: 04/14/24 12:40 Requesting Physician: Aditya Watson MD Primary Care Provider: Ruben Woods MD - Consult Narrative Reason for consult: Metastatic esophageal cancer Narrative: Raoul Bacon Jr. 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 Patient was also found to have lung metastasis but refused lung biopsy. He was started on chemotherapy with FOLFOX and Keytruda in August 2023 but only was able to tolerate for chemotherapy cycle and further chemotherapy was discontinued. He was continued on immunotherapy with Keytruda alone which he received last treatment 3 weeks ago. He came into the hospital with generalized weakness abdominal pain dysphagia and weight loss. Peg tube was placed but he is not using it. He is also complaining of productive cough with whitish sputum and sinus drainage. Labs showed hemoglobin of 11.6. Chest x-ray showed no acute cardiopulmonary process. Abdominal x-ray showed normal bowel pattern Review of Systems - Review of Systems All systems reviewed & are unremarkable except as noted in [facility] and [facility] Medical History: Medical History (Last Reviewed 04/13/24 @ 12:08 by Silvio Prater MD) CHF (congestive heart failure) CVA (cerebral vascular accident) Diabetes type 2, controlled Esophageal cancer Esophageal mass Furuncle of back, except buttock G tube feedings Heart failure ICD (implantable cardioverter-defibrillator) in place Lung cancer Sinusitis Uses feeding tube Surgical History: Surgical History (Last Reviewed 04/13/24 @ 12:08 by Silvio Prater MD) History of permanent cardiac pacemaker placement Family History: Family History (Last Reviewed 04/13/24 @ 12:08 by Silvio Prater MD) Father Acute myocardial infarction Blood clot in vein Mother Dementia Sibling Diabetes mellitus - Social History Social History: Social History (Last Reviewed 04/13/24 @ 12:08 by Silvio Prater MD) Gender Identity: Gender identity (if verbalized by the patient): Male Alcohol Use: Alcohol intake: former Substance Use: Substance use: current Substance use type: marijuana Other substance usage details: multiple joints a day Others: Spiritual care concerns: No Living Arrangements: Living arrangements: with family Oppucation/Education: Occupation/Education: retired Smoking Status: Smoking status: Current every day smoker Second hand tobacco smoke exposure: Yes Smoking Pack-years: Smoking packs per day: 1.5 Smoking cigarettes per day: 30.0 Years smoked: 50 Smoking pack-years: 75.00 Social Determinants of Health: Do You Feel Safe in your Home?: Yes Has the Lack of Transportation Kept You From Medical Appointments or From Getting Medications?: No Within the Past 12 Months, Were You Worried Whether Your Food Would Run Out Before You Got Money to Buy More?: Never True What is Your Housing Situation Today?: I Have Housing Are You Worried That in the Next 2 Months, You May Not Have Your Own Housing to Live In?: No Do You Have Trouble Paying Your Heating Or Electricity Bill?: No Do You Have Trouble Paying For Medicines?: No Are You Currently Unemployed and Looking for Work?: No Highest Level of Education Completed: Grade School Do You Have Trouble With Childcare or the Care of a Family Member?: No Exam - Vital Signs Vital Signs - 24 hr 04/13/24 13:57 04/13/24 22:00 04/13/24 20:00 Temperature 36.7 C 37.6 C Pulse Rate 81 80 Respiratory Rate 20 16 Blood Pressure 123/50 L 129/48 L Pulse Oximetry 97 96 Oxygen Delivery Room Air 04/14/24 06:00 Temperature 37.1 C Pulse Rate 76 Respiratory Rate 14 Blood Pressure 125/76 Pulse Oximetry 94 Oxygen Delivery - Exam HEENT: EOMI
--- NOTE | 2024-04-14 13:35 | PM.DS ---
DS: Admitting Diagnosis Discharge Date 04/14/2024 Admitting Diagnosis Weakness DS: Discharge Diagnosis Discharge Diagnosis (1) Weakness: Code(s): R53.1 - Weakness Status: Acute Assessment and Plan: ongoing issue (2) Esophageal cancer, stage IV: Code(s): C15.9 - Malignant neoplasm of esophagus, unspecified Status: Acute Assessment and Plan: Care coordination to provide information about hospice to family. (3) Diabetes type 2, controlled: Qualifiers: Diabetes mellitus complication status: with hyperglycemia Diabetes mellitus terminal manager insulin use: without prison use Qualified Code(s): E11.65 - Type 2 diabetes mellitus with hyperglycemia Code(s): E11.9 - Type 2 diabetes mellitus without complications Status: Acute Assessment and Plan: stable right now (4) Lung mass: Code(s): R91.8 - Other nonspecific abnormal finding of lung field Status: Acute Assessment and Plan: ongoing issue DS: Summary Hospital Course Hospital Course: 64yo male with CHF, hx of CVA, DM and esophageal cancer here for weakness. Patient hospitialized in July 2023 for dysphagia and found to have a fungating, partially obstructing esophageal mass with bx showing squamous cell carcinoma.?GTube was placed. He also had a 2.4cm cavitary nodule LLL either lung CA or metastasis. He is a current heavy smoker up to 2ppd and smokes 'a lot of weed'. He was treated with chemotherapy and initially did well and able to take oral intake but did not tolerate chemo well overall with weight loss down to 112#. Last CT chest in December showing 1.1cm LLL pulmonary nodule and wall thickening of the mid esophagus. He stopped chemo and started Keytruda about 2 months ago. He was reieving Ketruda monthly with natalee gain to 140# and changed to 2x/monthly treatments. He has had a decline and lost 10# recently dsicovered when he was weighed prior to his last Ketruda infusion on 04/07/24. Patient also with 2-3 week hx of cough productive of white sputum, sinus drainage, no appetite and headache. He was seen by the PCP with persistent symptoms on April 08 despite finishing a course of abx for sinus infection. He was started on doxycycline for 10 days but his symptoms worsened with continued decreased oral intake, diarrhea treated with imodium, abdominal pain, cough, dizziness. No fever, chills, chest pain or SOB. He did feel lightheaded and lowered himself to the ground. No head injury or LOC. He stopped the abx after 2 days because he felt this was causig his symptoms. He is refusing tube feedings. flushes the GTube every other day and this does not cause abdominal pain. Patient wants the pain to end but denies suicidal or homicidal ideation. He presented to the ED for evaluation. He and his is considering hospice. Most of the hx obtained from the chart and from his . Patient has mild confusion and refuses also to participate in history and exam. In the ED, he was hemodynamically stable. CBC and CMP were unrevealing. UA showing 2+ protein and 3+ ketones o/w negative. EKG showing paced rhythm. He was given Zofran, Pepcid, Dilaudid and IV fluids. He was admitted for further care. Pt wanting to DC with hospice at home. Time Spent with Patient Time attestation: Total time spent providing and/or coordinating discharge services:50 minutes on day of DC Exam Narrative: Gen - this, ill-appearing male in no acute respiratory distress who is nontoxic-appearing lying semi recumbent in bed HEENT - normocephalic. Atraumatic. Pupils equal round and reactive. Extraocular motions intact. Sclera clear and anicteric. Nares patent. tachy mucous membranes Neck - neck was supple. Chest - mildy, diffuse course BS. Nml RR CV - RRR S1-S2. Abd - GTube secured, dressing clean and dry. diffuse abdominal pain without guarding. +BS Ext - no pedal edema. Neuro - patient is alert and oriented x3 (not year).
[2024-04-14 14:00] VITALS: BP 118/61; PULSE 70; RESP 16; TEMP 36.8; O2SAT 95
== END 2024-04-14 15:00 | disposition hospice, home (50) ==
LOC: ANHED 05:59 → ANH3MEDSUR 08:15
PROVIDERS: Internal Medicine; Admitting Provider Internal Medicine; Emergency Provider Emergency Medicine; PCP Family Medicine; Visit Provider Family Medicine
DX: R53.1 Weakness (principal); C15.9 Malignant neoplasm of esophagus, unspecified; R91.8 Other nonspecific abnormal finding of lung field; I50.9 Heart failure, unspecified; E86.0 Dehydration; E11.9 Type 2 diabetes mellitus without complications; Z86.73 Personal history of transient ischemic attack (TIA), and cerebral infarction without residual deficits; F17.210 Nicotine dependence, cigarettes, uncomplicated; F12.90 Cannabis use, unspecified, uncomplicated; Z66 Do not resuscitate; Z95.810 Presence of automatic (implantable) cardiac defibrillator; Z79.84 Long term (current) use of oral hypoglycemic drugs; Z79.891 Long term (current) use of opiate analgesic; Z79.899 Other long term (current) drug therapy; Z93.1 Gastrostomy status
CPT/HCPCS: 36415; 71045; 74019; 80053; 81001; 83735; 84100; 84443; 85025; 87641; 93005; 96361; 96365; 96366; 96367; 96368; 96372; 96375; 96376; 99285; A9270; G0378; J0456; J0696; J1170; J1650; J2405; J3480; J7030